=== PATIENT | female | born 1975 | race Caucasian/White ===

== ENCOUNTER 2018-08-09 10:40 | Inpatient (IN) | payer MEDICAID ==
[~2018-08-09] VITALS: Ht 149.9 cm; Wt 75.1 kg
[2018-08-09] MEDS ORDERED: KETOROLAC 30 MG INJ IV STA (11:44)
[2018-08-09] MEDS ORDERED: ONDANSETRON 4 MG INJ IV STA (11:44)
--- NOTE | 2018-08-09 15:06 | EN ---
Date/Time of Note Date/Time of Note DATE: 08/09/18 TIME: 15:05 ER Progress Note Patient seen with Dr. Santos Arrangements made for admission. 42-year-old female presents with right upper quadrant abdominal pain with elevated liver function tests and a nonspecific ultrasound. Given patient's ongoing discomfort and my concerns over possible obstruction, she will be admitted for MRCP and further diagnostic testing. She does not appear to be septic and her white count is normal and thus antibiotic's have been withheld at this time. SEVERO NICHOLAS August 09, 2018 15:06
--- NOTE | 2018-08-09 15:15 | ERD ---
ER Documentation Chief Complaint Chief Complaint BILATERAL UPPER ABD PAIN X2 DAYS W/ NAUSEA AND DIARRHEA HPI 42-year-old female was presents with worsening right upper quadrant abdominal pain for last 2 days with nausea and vomit nonbilious nonbloody. She has loose bowel movements without blood or mucus patient has fevers, chest pain, shortness of breath patient has lower abdominal pain, urinary complaints. Denies . She has a history of but denies prior hepatobiliary disease or surgery. Pain described as 9 out of 10 possibly postprandial without relieving factors. Pain is sharp. ROS All systems reviewed and are negative except as per history of present illness. Allergies Allergies: Coded Allergies: No Known Allergy (Unverified , 08/09/18) PMhx/Soc Medical and Surgical Hx: pt denies Medical Hx History of Surgery: Yes (C SECTION) Anesthesia Reaction: No Hx Alcohol Use: No Hx Substance Use: No Hx Tobacco Use: No Smoking Status: Never smoker FmHx Family History: No diabetes, No coronary disease, No other Physical Exam Vitals Vital Signs Date Temp Pulse Resp B/P (MAP) Pulse Ox O2 O2 Flow FiO2 Time Delivery Rate 08/09/18 98.1 89 16 120/68 99 10:47 (85) Physical Exam Const: No acute distress Head: Atraumatic Eyes: Normal Conjunctiva ENT: Normal External Ears, Nose and Mouth. Neck: Full range of motion. No meningismus. Resp: Clear to auscultation bilaterally Cardio: Regular rate and rhythm, no murmurs Abd: Soft, in the right upper quadrant. No rebound. No tenderness McBurney's point. Non distended. Normal bowel sounds Skin: No petechiae or rashes Back: No midline or flank tenderness Ext: No cyanosis, or edema Neur: Awake and alert Psych: Normal Mood and Affect Result Diagram: 08/09/18 1242 08/09/18 1242 Results 24 hrs Laboratory Tests Test 08/09/18 12:08 08/09/18 12:42 POC Beta HCG, Qualitative NEGATIVE White Blood Count 6.6 10^3/ul Red Blood Count 4.78 10^6/ul Hemoglobin 13.2 g/dl Hematocrit 40.6 % Mean Corpuscular Volume 84.9 fl Mean Corpuscular Hemoglobin 27.6 pg Mean Corpuscular Hemoglobin Concent 32.5 g/dl Red Cell Distribution Width 13.5 % Platelet Count 332 10^3/UL Mean Platelet Volume 10.3 fl Immature Granulocytes % 0.500 % Neutrophils % 68.6 % Lymphocytes % 23.2 % Monocytes % 6.1 % Eosinophils % 1.1 % Basophils % 0.5 % Nucleated Red Blood Cells % 0.0 /100WBC Immature Granulocytes # 0.030 10^3/ul Neutrophils # 4.5 10^3/ul Lymphocytes # 1.5 10^3/ul Monocytes # 0.4 10^3/ul Eosinophils # 0.1 10^3/ul Basophils # 0.0 10^3/ul Nucleated Red Blood Cells # 0.0 10^3/ul Urine Color KINGSLEY Urine Clarity CLOUDY Urine pH 7.0 Urine Specific [place] 1.020 Urine Ketones NEGATIVE mg/dL Urine Nitrite NEGATIVE mg/dL Urine Bilirubin 1+ mg/dL Urine Urobilinogen 2+ mg/dL Urine Leukocyte Esterase NEGATIVE Bob/ul Urine Microscopic RBC 0 /HPF Urine Microscopic WBC 2 /HPF Urine Squamous Epithelial Cells MODERATE /HPF Urine Bacteria FEW /HPF Urine Mucus FEW /HPF Urine Hemoglobin NEGATIVE mg/dL Urine Glucose NEGATIVE mg/dL Urine Total Protein NEGATIVE mg/dl Sodium Level 141 mmol/L Potassium Level 4.5 mmol/L Chloride Level 105 mmol/L Carbon Dioxide Level 29 mmol/L Anion Gap 7 Blood Urea Nitrogen 7 mg/dl Creatinine 0.68 mg/dl Est Glomerular Filtrat Rate mL/min > 60 mL/min Glucose Level 110 mg/dl Calcium Level 9.8 mg/dl Total Bilirubin 0.8 mg/dl Direct Bilirubin 0.10 mg/dl Indirect Bilirubin 0.7 mg/dl Aspartate Amino Transf (AST/SGOT) 1334 IU/L Alanine Aminotransferase (ALT/SGPT) 1035 IU/L Alkaline Phosphatase 157 IU/L Total Protein 7.3 g/dl Albumin 4.3 g/dl Globulin 3.00 g/dl Albumin/Globulin Ratio 1.43 Lipase 232 U/L Current Medications Medications Dose Sig/Horace Start Time Status Last (Trade) Ordered Route PRN Stop Time Admin Dose Reason Admin Ondansetron 4 mg ONCE STAT 08/09/18 DC 08/09/18 HCl (Zofran IV 11:44 12:48 Inj) 08/09/18 11:45 Ketorolac 30 mg ONCE STAT 08/09/18 DC 08/09/18 Tromethamine IV 11:44 12:48 (Toradol) 08/09/18 11:45 Procedures/MDM CBC normal. There is significant transaminitis over thousand with elevated alk phos. Lipase is normal and there is no evidence of elevated bilirubin. Urine shows no significant signs of infection or additional abnormalities. There is bilirubin in the urine. Patient was given Toradol 30 mg IV for pain and Zofran 4 mg IV for nausea. PROCEDURE: US Abdomen (right upper quadrant). CLINICAL INDICATION: Abdominal pain. TECHNIQUE: Multiple real-time longitudinal and transverse images of the right upper quadrant of the abdomen were acquired utilizing a curved array transducer. Images were reviewed on a high-resolution PACS workstation. COMPARISON: None FINDINGS: The liver is normal in size and demonstrates increased echogenicity. There is a 1.4 cm hypoechoic focus within the right hepatic lobe. The gallbladder is not well visualized. There are shadowing echogenic foci within the gallbladder fossa. No intrahepatic biliary dilatation is seen. The common bile duct measures 10 mm in maximal dimension. The portal and hepatic veins are patent de monstrating normal directional flow. The visualized portions of the pancreas are unremarkable with obscuration of the tail of the pancreas. No free fluid is identified. The right kidney measures 11.2 cm in length. The renal parenchyma demonstrates normal echogenicity. There is no perinephric fluid collection. No hydronephrosis, mass, or calculus is seen. IMPRESSION: 1. The gallbladder is not visualized. There are shadowing echogenic foci within the gallbladder fossa. Findings may reflect a contracted gallbladder with stones or surgical clips from prior cholecystectomy. Correlation with past surgical history is required. 2. The common bile duct is dilated measuring 10 mm in diameter. Correlation with LFTs is recommended. 3. 1.4 cm hypoechoic lesion within the right hepatic lobe. CT or MRI three- phase liver protocol is recommended for further characterization. 4. Hepatic steatosis. RPTAT: HH .Maggie Adrian MD, Date Time Electronically viewed and signed by .Maggie Adrian MD, MD on 08/09/2018 13:27 Presents with worsening right upper quadrant abdominal pain and nausea for the last week. She has signs concerning for bili obstruction with significant transaminitis. She has a 1.4 cm hypoechoic lesion in the right hepatic lobe as well. She has no episodes findings to suggest cholecystitis, appendicitis. She curiously has no identified gallbladder despite no cholecystectomy. She will require further evaluation and studies whether it be MRCP or three-phase contrast CT studies as recommended and we will defer more definitive testing to inpatient team. Patient had persistent right upper quadrant abdominal pain after Toradol although improved. Antibiotics deferred for now given no evidence of sepsis or significant cholecystitis. Departure Diagnosis: Primary Impression: Abdominal pain Abdominal location: right upper quadrant Qualified Codes: R10.11 - Right upper quadrant pain Condition: GLORIA Prince MD August 09, 2018 15:15
[2018-08-09] MEDS ORDERED: ACETAMINOPHEN 325 MG TAB PO PRN ×2 (15:30→16:00)
[2018-08-09] MEDS ORDERED: ONDANSETRON 4 MG INJ IV PRN (15:30)
[2018-08-09] MEDS ORDERED: morphine 2 MG INJ IV PRN (16:00)
[2018-08-09] MEDS ORDERED: NACL 0.9% 3 ML SYG IV SCH (16:00)
--- NOTE | 2018-08-09 16:04 | HP ---
Date/Time of Note Date/Time of Note DATE: 08/09/18 TIME: 15:54 Assessment/Plan VTE Prophylaxis SCD applied (from Nsg): Yes Pharmacological prophylaxis: NA/contraindicated Pharm contraindication: low risk/ambulating Lines/Catheters IV Catheter Type (from Nrsg): Saline Lock Assessment/Plan Assessment/Plan 1. Acute right upper quadrant pain, possibly choledocholithiasis - US showing contracted GB but per ED physician, tech was concerned about porcelain GB - Will order MRCP to further evaluate - GI consultation placed for possible ERCP - General surgery consultation placed for evaluation for possible cholecystectomy - patient remains afebrile with nl WBC. Will hold off on starting antibiotics 2. Transaminitis - most likely secondary to #1 - will continue to trend 3. Diet - NPO for now and continue IVF 4. DVT ppx - SCD 5. GI ppx - PPI 6. Disposition - Admit to med/surg for evaluation of RUQ pain and possible GI/Surgical intervention based on results of MRCP Result Diagram: 08/09/18 1242 08/09/18 1242 Results 24hrs Laboratory Tests Test 08/09/18 12:08 08/09/18 12:42 POC Beta HCG, Qualitative NEGATIVE White Blood Count 6.6 Red Blood Count 4.78 Hemoglobin 13.2 Hematocrit 40.6 Mean Corpuscular Volume 84.9 Mean Corpuscular Hemoglobin 27.6 L Mean Corpuscular Hemoglobin Concent 32.5 Red Cell Distribution Width 13.5 Platelet Count 332 Mean Platelet Volume 10.3 Immature Granulocytes % 0.500 H Neutrophils % 68.6 Lymphocytes % 23.2 Monocytes % 6.1 Eosinophils % 1.1 Basophils % 0.5 Nucleated Red Blood Cells % 0.0 Immature Granulocytes # 0.030 Neutrophils # 4.5 Lymphocytes # 1.5 Monocytes # 0.4 Eosinophils # 0.1 Basophils # 0.0 Nucleated Red Blood Cells # 0.0 Urine Color KINGSLEY Urine Clarity CLOUDY A Urine pH 7.0 Urine Specific [place] 1.020 Urine Ketones NEGATIVE Urine Nitrite NEGATIVE Urine Bilirubin 1+ H Urine Urobilinogen 2+ H Urine Leukocyte Esterase NEGATIVE Urine Microscopic RBC 0 Urine Microscopic WBC 2 Urine Squamous Epithelial Cells MODERATE Urine Bacteria FEW A Urine Mucus FEW A Urine Hemoglobin NEGATIVE Urine Glucose NEGATIVE Urine Total Protein NEGATIVE Sodium Level 141 Potassium Level 4.5 Chloride Level 105 Carbon Dioxide Level 29 Anion Gap 7 Blood Urea Nitrogen 7 Creatinine 0.68 Est Glomerular Filtrat Rate mL/min > 60 Glucose Level 110 Calcium Level 9.8 Total Bilirubin 0.8 Direct Bilirubin 0.10 Indirect Bilirubin 0.7 Aspartate Amino Transf (AST/SGOT) 1334 H Alanine Aminotransferase (ALT/SGPT) 1035 H Alkaline Phosphatase 157 H Total Protein 7.3 Albumin 4.3 Globulin 3.00 Albumin/Globulin Ratio 1.43 Lipase 232 HPI/ROS Admit Date/Time Admit Date/Time 08/09/18 Hx of Present Illness 42 yo F with no significant PMH presented to ED with worsening right upper quadrant pain for the past 3 days. Patient states the pain radiates in a band like pattern in upper quadrants, moderate in nature, nothing makes it better and worse with food. Patient states the pain is constant and every time she eats she vomits. Denies any fevers, chills, headache, dizziness, chest pain, shortness of breath, or urinary symptoms. She does admit to suprapubic discomfort when she bends down and straights but denies any dysuria or flank pain. Patient denies any previous surgeries. No smoking or alcohol use. ROS All 12 systems reviewed and pertinent positives as per HPI. All others negative. Constitutional: nausea; No chills, No fatigue Eyes: No discharge ENT: No congestion Respiratory: No cough, No shortness of breath, No sputum, No wheezing Cardiovascular: No chest pain, No edema, No lightheadedness, No palpitations Gastrointestinal: pain, nausea, vomiting; No constipation, No diarrhea Genitourinary: No dysuria, No flank pain Musculoskeletal: other (suprapubic discomfort) Skin: No laceration, No rash Neurologic: No confusion, No focal-weakness, No syncope Endocrine: no complaints Lymphatic: no complaints Psychological: nl mood/affect Immunologic: no complaints PMH/Family/Social Past Medical History Medical History: no pertinent history Medications Current Medications Ondansetron HCl (Zofran Inj) 4 mg BRIDGE ORDER PRN IV NAUSEA/VOMITING; Start 08/09/18 at 15:30; Stop 08/10/18 at 15:29 Acetaminophen (Tylenol Tab) 650 mg ER BRIDGE PRN PO .MILD PAIN 1-3 OR TEMP; Start 08/09/18 at 15:30; Stop 08/10/18 at 15:29 Coded Allergies: No Known Allergy (Unverified , 08/09/18) Past Surgical History Past Surgical Hx: no surgical history Family History Significant Family History: no pertinent family hx Social History Alcohol Use: none Smoking Status: Never smoker Drug Use: none Exam/Review of Systems Vital Signs Vitals Vital Signs Date Temp Pulse Resp B/P (MAP) Pulse Ox O2 O2 Flow FiO2 Time Delivery Rate 08/09/18 98.1 89 16 120/68 99 10:47 (85) Exam Exam General: Patient is laying in bed and answers questions appropriately. no acute distress Mentation: Patient is alert and oriented 4, Head: Normocephalic atraumatic Eyes: EOMI, pupils reactive to light Neck: Supple, nontender, midline Respiratory: Clear to auscultation bilaterally. no wheezing or rhonchi Cardiovascular: S1, S2, regular rate and rhythm, no obvious murmurs Gastrointestinal: soft, tenderness to palpation RUQ and suprapubic area, +Meredith sign, nondistended, bowel sounds heard. no rebound or guarding Ext: Moves all extremities spontaneously. no edema, cyanosis or clubbing Skin: no rashes or lesions appreciated Additional Comments No home medications PROCEDURE: US Abdomen (right upper quadrant). CLINICAL INDICATION: Abdominal pain. TECHNIQUE: Multiple real-time longitudinal and transverse images of the right upper quadrant of the abdomen were acquired utilizing a curved array transducer. Images were reviewed on a high-resolution PACS workstation. COMPARISON: None FINDINGS: The liver is normal in size and demonstrates increased echogenicity. There is a 1.4 cm hypoechoic focus within the right hepatic lobe. The gallbladder is not well visualized. There are shadowing echogenic foci within the gallbladder fossa. No intrahepatic biliary dilatation is seen. The common bile duct measures 10 mm in maximal dimension. The portal and hepatic veins are patent demonstrating normal directional flow. The visualized portions of the pancreas are unremarkable with obscuration of the tail of the pancreas. No free fluid is identified. The right kidney measures 11.2 cm in length. The renal parenchyma demonstrates normal echogenicity. There is no perinephric fluid collection. No hydronephrosis, mass, or calculus is seen. IMPRESSION: 1. The gallbladder is not visualized. There are shadowing echogenic foci within the gallbladder fossa. Findings may reflect a contracted gallbladder with stones or surgical clips from prior cholecystectomy. Correlation with past surgical history is required. 2. The common bile duct is dilated measuring 10 mm in diameter. Correlation with LFTs is recommended. 3. 1.4 cm hypoechoic lesion within the right hepatic lobe. CT or MRI three- phase liver protocol is recommended for further characterization. 4. Hepatic steatosis. RPTAT: HH .Maggie Adrian MD, MD Date Time Electronically viewed and signed by .Maggie Adrian MD, MD on 08/09/2018 13:27 AMANDA MILAN MD August 09, 2018 16:03
--- NOTE | 2018-08-09 16:28 | CONS ---
Assessment/Plan Assessment/Plan Hospital Course (Demo Recall) Summary Assessment and Plan: Assessment: Upper abdominal pain with associated nausea/vomiting Profoundly elevated LFTs (normal bilirubin) Hepatic steatosis 1.4 cm hypoechoic lesion within the right hepatic lobe Plan: MRCP- pending- if positive for CBD obstruction will proceed with ERCP Hepatitis panel, with auto-immune work-up Clear liquid diet Trend LFTs Will check INR and AFP Ct with liver protocol to assess 1.4 cm lesion per radiology recommendations Patient seen in collaboration with Dr. Gómez CC: KASIA GÓMEZ MD ; Consultation Date/Type/Reason Admit Date/Time 08/09/18 Date of Consultation: August 09, 2018 Type of Consult GI Reason for Consultation Elevated LFTs/ Upper abd pain Date/Time of Note DATE: 08/09/18 TIME: 16:16 Hx of Present Illness This a 42-year-old female with no significant past medical history who presented to the hospital with complaints of upper abdominal pain worse to right upper quadrant with work-up in the ED patient found to have profound elevated LFTs and a normal bilirubin. She had a gallbladder ultrasound which revealed hepatic steatosis and a dilated common bile duct measuring 10 mm in diameter. The gallbladder was not visualized however there are shadowing echogenic foci within the bladder fossa which may reflect contracted gallbladder with stones or surgical clips from prior cholecystectomy. Patient denies previous cholecystectomy states only surgery was and she also denies alcohol use, drug use, or history of smoking. MRCP has been ordered we will additiona lly order further work-up regarding profound elevation in LFTs. If MRCP is positive we will move forward with ERCP. Review of Systems: A 12 system, review was conducted and is negative except as noted in the HPI or here. Past Medical History Medical History: no pertinent history Medications Current Medications Ondansetron HCl (Zofran Inj) 4 mg BRIDGE ORDER PRN IV NAUSEA/VOMITING; Start 08/09/18 at 15:30; Stop 08/10/18 at 15:29 Acetaminophen (Tylenol Tab) 650 mg ER BRIDGE PRN PO .MILD PAIN 1-3 OR TEMP; Start 08/09/18 at 15:30; Stop 08/10/18 at 15:29 Dextrose/Sodium Chloride 1,000 ml @ 75 mls/hr [id number] IV ; Start 08/09/18 at 15:48 IV Flush (NS 3 ml) 3 ml PER PROTOCOL IV ; Start 08/09/18 at 16:00 Ondansetron HCl (Zofran Inj) 4 mg Q6H PRN IV NAUSEA/VOMITING; Start 08/09/18 at 16:00 Acetaminophen (Tylenol Tab) 650 mg Q6H PRN PO .PAIN 1-3 OR TEMP; Start 08/09/18 at 16:00 Morphine Sulfate (morphine) 2 mg Q4H PRN IV .SEVERE PAIN 7-10; Start 08/09/18 at 16:00 Hydromorphone HCl (Dilaudid) 0.5 mg Q4H PRN IV .SEVERE PAIN 7-10; Start 08/09/18 at 16:00 Famotidine (Pepcid Iv) 20 mg Q12 IV ; Start 08/09/18 at 21:00 Ketorolac Tromethamine (Toradol) 15 mg Q6H PRN IV PAIN LEVEL 4-6; Start 08/09/18 at 16:30; Stop 08/12/18 at 16:29 Allergies: Coded Allergies: No Known Allergy (Unverified , 08/09/18) Past Surgical History Past Surgical Hx: no surgical history Social History Alcohol Use: none Smoking Status: Never smoker Drug Use: none Exam/Review of Systems Exam Vitals Vital Signs Date Temp Pulse Resp B/P (MAP) Pulse Ox O2 O2 Flow FiO2 Time Delivery Rate 08/09/18 98.1 89 16 120/68 99 10:47 (85) Exam PHYSICAL EXAMINATION: GENERAL: Well developed, well nourished, alert & oriented x 3, in no acute distress SKIN: No lesions HEAD: Normocephalic, atraumatic, no tenderness. EYES: Pupils equal reactive to light, no discharge. EARS/NOSE AND THROAT: Ears normal, nose normal. NECK: Supple, no masses. CHEST: Inspection within normal limits. CARDIOVASCULAR: Heart: Regular rate and rhythm RESPIRATORY: Lungs clear to auscultation GASTROINTESTINAL AND LIVER: Abdomen: Soft, Upper abdominal pain, worse to RUQ, non-distended, no hernias, no masses, no organomegaly, no rebound tenderness, normoactive bowel sounds. Rectal: Deferred. EXTREMITIES: No cyanosis, clubbing or edema. Results Result Diagram: 08/09/18 1242 08/09/18 1242 Results 24hrs Laboratory Tests Test 08/09/18 12:08 08/09/18 12:42 POC Beta HCG, Qualitative NEGATIVE White Blood Count 6.6 Red Blood Count 4.78 Hemoglobin 13.2 Hematocrit 40.6 Mean Corpuscular Volume 84.9 Mean Corpuscular Hemoglobin 27.6 L Mean Corpuscular Hemoglobin Concent 32.5 Red Cell Distribution Width 13.5 Platelet Count 332 Mean Platelet Volume 10.3 Immature Granulocytes % 0.500 H Neutrophils % 68.6 Lymphocytes % 23.2 Monocytes % 6.1 Eosinophils % 1.1 Basophils % 0.5 Nucleated Red Blood Cells % 0.0 Immature Granulocytes # 0.030 Neutrophils # 4.5 Lymphocytes # 1.5 Monocytes # 0.4 Eosinophils # 0.1 Basophils # 0.0 Nucleated Red Blood Cells # 0.0 Prothrombin Time 12.2 Prothrombin Time Ratio 1.0 INR International Normalized Ratio 0.89 Activated Partial Thromboplast Time 24.9 Urine Color KINGSLEY Urine Clarity CLOUDY A Urine pH 7.0 Urine Specific [place] 1.020 Urine Ketones NEGATIVE Urine Nitrite NEGATIVE Urine Bilirubin 1+ H Urine Urobilinogen 2+ H Urine Leukocyte Esterase NEGATIVE Urine Microscopic RBC 0 Urine Microscopic WBC 2 Urine Squamous Epithelial Cells MODERATE Urine Bacteria FEW A Urine Mucus FEW A Urine Hemoglobin NEGATIVE Urine Glucose NEGATIVE Urine Total Protein NEGATIVE Sodium Level 141 Potassium Level 4.5 Chloride Level 105 Carbon Dioxide Level 29 Anion Gap 7 Blood Urea Nitrogen 7 Creatinine 0.68 Est Glomerular Filtrat Rate mL/min > 60 Glucose Level 110 Calcium Level 9.8 Total Bilirubin 0.8 Direct Bilirubin 0.10 Indirect Bilirubin 0.7 Aspartate Amino Transf (AST/SGOT) 1334 H Alanine Aminotransferase (ALT/SGPT) 1035 H Alkaline Phosphatase 157 H Total Protein 7.3 Albumin 4.3 Globulin 3.00 Albumin/Globulin Ratio 1.43 Lipase 232 Medications Medication Current Medications Ondansetron HCl (Zofran Inj) 4 mg BRIDGE ORDER PRN IV NAUSEA/VOMITING; Start 08/09/18 at 15:30; Stop 08/10/18 at 15:29 Acetaminophen (Tylenol Tab) 650 mg ER BRIDGE PRN PO .MILD PAIN 1-3 OR TEMP; Start 08/09/18 at 15:30; Stop 08/10/18 at 15:29 Dextrose/Sodium Chloride 1,000 ml @ 75 mls/hr [id number] IV ; Start 08/09/18 at 15:48 IV Flush (NS 3 ml) 3 ml PER PROTOCOL IV ; Start 08/09/18 at 16:00 Ondansetron HCl (Zofran Inj) 4 mg Q6H PRN IV NAUSEA/VOMITING; Start 08/09/18 at 16:00 Acetaminophen (Tylenol Tab) 650 mg Q6H PRN PO .PAIN 1-3 OR TEMP; Start 08/09/18 at 16:00 Morphine Sulfate (morphine) 2 mg Q4H PRN IV .SEVERE PAIN 7-10; Start 08/09/18 at 16:00 Hydromorphone HCl (Dilaudid) 0.5 mg Q4H PRN IV .SEVERE PAIN 7-10; Start 08/09/18 at 16:00 Famotidine (Pepcid Iv) 20 mg Q12 IV ; Start 08/09/18 at 21:00 Ketorolac Tromethamine (Toradol) 15 mg Q6H PRN IV PAIN LEVEL 4-6; Start 08/09/18 at 16:30; Stop 08/12/18 at 16:29 BILL APONTE August 09, 2018 16:27
[2018-08-09] MEDS ORDERED: SOD CHLORIDE 0.9% 100 ML ONE (16:55)
[2018-08-09] MEDS ORDERED: IOHEXOL 300MG/ML 150 ML BTL ONE (16:55)
[2018-08-09 17:30] VITALS: BP 118/74; PULSE 72; RESP 16
[2018-08-09 19:53] VITALS: BP 123/72; PULSE 69; RESP 18
[2018-08-09 21:00] VITALS: Ht 149.9 cm; Wt 75.1 kg
[2018-08-09] MEDS: FAMOTIDINE 20 MG INJ IV SCH (21:13)
[2018-08-09] MEDS: HYDROmorphONE 0.5 MG/0.5 ML SYG IV PRN (21:13)
[2018-08-09] MEDS: DEXTROSE 5%-0.45% NACL 1,000 ML IV SCH (21:15)
--- NOTE | 2018-08-09 21:35 | CONS ---
Assessment/Plan Assessment/Plan Hospital Course (Demo Recall) 1. Abdominal pain 2. Transaminitis 3. Dilated common bile duct with possible choledocholithiasis 4. Contracted gallbladder, ? porcelain (per ER note however not documented in the ultrasound) 5. Questionable liver lesion 6. Steatosis -GI consult for ERCP -Eventual cholecystectomy -Pain control -Encourage weight optimization -Further imaging to evaluate the liver, defer to GI 7. BMI 33 -Nutrition and exercise optimization Thank you very much for consulting me in this patient's care, Consultation Date/Type/Reason Admit Date/Time 08/09/18 Date of Consultation: August 09, 2018 Type of Consult General surgical Reason for Consultation Abdominal pain Transaminitis Possible choledocholithiasis Requesting Provider: AMANDA MILAN MD Date/Time of Note DATE: 08/09/18 TIME: 21:35 Hx of Present Illness Neida Cagle is a 42 yo F who presented to ED with worsening right upper quadrant pain for the past 3 days. Patient states the pain radiates in a band like pattern in upper quadrants, moderate in nature, nothing makes it better and worse with food. Patient states the pain is constant and every time she eats she vomits. Denies any fevers, chills, headache, dizziness, chest pain, shortness of breath, or urinary symptoms. She does admit to suprapubic discomfort when she bends down and straights but denies any dysuria or flank pain. No trauma or sick contacts. No change in bowel habits. No color change of skin eyes urine or stool. Work-up identified transaminitis normal vitals. Ultrasound identifies dilated common bile duct. Gallbladder is not visualized however she is never had surgery. 12 point review of system is negative unless otherwise addressed in chart Past Medical History BMI 33 Abdominal pain Transaminitis Dilated common bile duct Liver lesion Steatosis Medications Current Medications Ondansetron HCl (Zofran Inj) 4 mg BRIDGE ORDER PRN IV NAUSEA/VOMITING; Start 08/09/18 at 15:30; Stop 08/10/18 at 15:29 Acetaminophen (Tylenol Tab) 650 mg ER BRIDGE PRN PO .MILD PAIN 1-3 OR TEMP; Start 08/09/18 at 15:30; Stop 08/10/18 at 15:29 Dextrose/Sodium Chloride 1,000 ml @ 75 mls/hr [id number] IV Last administered on 08/09/18at 21:15; Admin Dose 75 MLS/HR; Start 08/09/18 at 15:48 IV Flush (NS 3 ml) 3 ml PER PROTOCOL IV ; Start 08/09/18 at 16:00 Ondansetron HCl (Zofran Inj) 4 mg Q6H PRN IV NAUSEA/VOMITING; Start 08/09/18 at 16:00 Acetaminophen (Tylenol Tab) 650 mg Q6H PRN PO .PAIN 1-3 OR TEMP; Start 08/09/18 at 16:00 Morphine Sulfate (morphine) 2 mg Q4H PRN IV .SEVERE PAIN 7-10; Start 08/09/18 at 16:00 Hydromorphone HCl (Dilaudid) 0.5 mg Q4H PRN IV .SEVERE PAIN 7-10 Last administered on 08/09/18at 21:13; Admin Dose 0.5 MG; Start 08/09/18 at 16:00 Famotidine (Pepcid Iv) 20 mg Q12 IV Last administered on 08/09/18at 21:13; Admin Dose 20 MG; Start 08/09/18 at 21:00 Ketorolac Tromethamine (Toradol) 15 mg Q6H PRN IV PAIN LEVEL 4-6; Start 08/09/18 at 16:30; Stop 08/12/18 at 16:29 Allergies: Coded Allergies: No Known Allergy (Unverified , 08/09/18) Past Surgical History Past Surgical Hx: other () Family History Significant Family History: no pertinent family hx Social History Alcohol Use: none Smoking Status: Never smoker Drug Use: none Exam/Review of Systems Exam Vitals Vital Signs Date Temp Pulse Resp B/P (MAP) Pulse Ox O2 O2 Flow FiO2 Time Delivery Rate 08/09/18 98.0 69 18 123/72 99 19:53 (89) 08/09/18 Room Air 17:30 Constitutional: alert, oriented, obese; No distress Psych: nl mood/affect; No anxiety Head: normocephalic, atraumatic Eyes: nl conjunctiva, EOMI, PERRL; No icteric ENMT: nl external ears & nose, mucosa pink and moist Neck: supple, non-tender; No jvd Respiratory: normal air movement; No congested cough, No labored breathing Cardiovascular: regular rate and rhythm; No edema Gastrointestinal: soft, tender (Minimal epigastric. Negative Meredith's); No distended, No rebound or guarding Musculoskeletal: nl extremities to inspection, nl gait and stance; No joint tenderness Extremities: normal pulses; No calf tenderness, No edema Neurological: nl mental status, nl speech, nl strength Skin: nl turgor; No rash or lesions, No diaphoresis Lymph: nl lymph nodes Results Result Diagram: 08/09/18 1242 08/09/18 1242 Results 24hrs Laboratory Tests Test 08/09/18 12:08 08/09/18 12:42 08/09/18 18:02 POC Beta HCG, Qualitative NEGATIVE White Blood Count 6.6 Red Blood Count 4.78 Hemoglobin 13.2 Hematocrit 40.6 Mean Corpuscular Volume 84.9 Mean Corpuscular Hemoglobin 27.6 L Mean Corpuscular Hemoglobin Concent 32.5 Red Cell Distribution Width 13.5 Platelet Count 332 Mean Platelet Volume 10.3 Immature Granulocytes % 0.500 H Neutrophils % 68.6 Lymphocytes % 23.2 Monocytes % 6.1 Eosinophils % 1.1 Basophils % 0.5 Nucleated Red Blood Cells % 0.0 Immature Granulocytes # 0.030 Neutrophils # 4.5 Lymphocytes # 1.5 Monocytes # 0.4 Eosinophils # 0.1 Basophils # 0.0 Nucleated Red Blood Cells # 0.0 Prothrombin Time 12.2 12.0 Prothrombin Time Ratio 1.0 0.9 INR International Normalized Ratio 0.89 0.88 Activated Partial Thromboplast Time 24.9 Urine Color [place] Urine Clarity CLOUDY A Urine pH 7.0 Urine Specific [place] 1.020 Urine Ketones NEGATIVE Urine Nitrite NEGATIVE Urine Bilirubin 1+ H Urine Urobilinogen 2+ H Urine Leukocyte Esterase NEGATIVE Urine Microscopic RBC 0 Urine Microscopic WBC 2 Urine Squamous Epithelial Cells MODERATE Urine Bacteria FEW A Urine Mucus FEW A Urine Hemoglobin NEGATIVE Urine Glucose NEGATIVE Urine Total Protein NEGATIVE Sodium Level 141 Potassium Level 4.5 Chloride Level 105 Carbon Dioxide Level 29 Anion Gap 7 Blood Urea Nitrogen 7 Creatinine 0.68 Est Glomerular Filtrat Rate mL/min > 60 Glucose Level 110 Calcium Level 9.8 Total Bilirubin 0.8 Direct Bilirubin 0.10 Indirect Bilirubin 0.7 Aspartate Amino Transf (AST/SGOT) 1334 H Alanine Aminotransferase (ALT/SGPT) 1035 H Alkaline Phosphatase 157 H Total Protein 7.3 Albumin 4.3 Globulin 3.00 Albumin/Globulin Ratio 1.43 Lipase 232 Alpha Fetoprotein 4.34 Hepatitis B Surface Antigen NEGATIVE Hepatitis B Core Total Antibody NEGATIVE Hepatitis C Antibody NEGATIVE Imaging Imaging Ultrasound: 1. The gallbladder is not visualized. There are shadowing echogenic foci within the gallbladder fossa. Findings may reflect a contracted gallbladder with stones or surgical clips from prior cholecystectomy. Correlation with past surgical history is required. 2. The common bile duct is dilated measuring 10 mm in diameter. Correlation with LFTs is recommended. 3. 1.4 cm hypoechoic lesion within the right hepatic lobe. CT or MRI three- phase liver protocol is recommended for further characterization. 4. Hepatic steatosis. Medications Medication Current Medications Ondansetron HCl (Zofran Inj) 4 mg BRIDGE ORDER PRN IV NAUSEA/VOMITING; Start 08/09/18 at 15:30; Stop 08/10/18 at 15:29 Acetaminophen (Tylenol Tab) 650 mg ER BRIDGE PRN PO .MILD PAIN 1-3 OR TEMP; Start 08/09/18 at 15:30; Stop 08/10/18 at 15:29 Dextrose/Sodium Chloride 1,000 ml @ 75 mls/hr [id number] IV Last administered on 08/09/18at 21:15; Admin Dose 75 MLS/HR; Start 08/09/18 at 15:48 IV Flush (NS 3 ml) 3 ml PER PROTOCOL IV ; Start 08/09/18 at 16:00 Ondansetron HCl (Zofran Inj) 4 mg Q6H PRN IV NAUSEA/VOMITING; Start 08/09/18 at 16:00 Acetaminophen (Tylenol Tab) 650 mg Q6H PRN PO .PAIN 1-3 OR TEMP; Start 08/09/18 at 16:00 Morphine Sulfate (morphine) 2 mg Q4H PRN IV .SEVERE PAIN 7-10; Start 08/09/18 at 16:00 Hydromorphone HCl (Dilaudid) 0.5 mg Q4H PRN IV .SEVERE PAIN 7-10 Last administered on 08/09/18at 21:13; Admin Dose 0.5 MG; Start 08/09/18 at 16:00 Famotidine (Pepcid Iv) 20 mg Q12 IV Last administered on 08/09/18at 21:13; Admin Dose 20 MG; Start 08/09/18 at 21:00 Ketorolac Tromethamine (Toradol) 15 mg Q6H PRN IV PAIN LEVEL 4-6; Start 08/09/18 at 16:30; Stop 08/12/18 at 16:29 BRICE VALENZUELA MD August 09, 2018 21:35
[2018-08-10 02:00] VITALS: BP 96/62; PULSE 79; RESP 19
[2018-08-10 08:00] VITALS: BP 94/55; PULSE 68; RESP 18
[2018-08-10] MEDS: FAMOTIDINE 20 MG INJ IV SCH ×2 (08:12→20:13)
[2018-08-10] MEDS: HYDROmorphONE 0.5 MG/0.5 ML SYG IV PRN (08:12)
[2018-08-10] MEDS: DEXTROSE 5%-0.45% NACL 1,000 ML IV SCH ×2 (09:49→22:52)
--- NOTE | 2018-08-10 09:54 | PN ---
Date/Time of Note Date/Time of Note DATE: 08/10/18 TIME: 09:49 Assessment/Plan VTE Prophylaxis Risk score (from [facility])>0 risk: 3 SCD applied (from [facility]): Yes Pharmacological prophylaxis: NA/contraindicated Pharm contraindication: low risk/ambulating Lines/Catheters [facility]from [facility] Peripheral IV Urinary Cath still in place: No Assessment/Plan Assessment/Plan 1. Acute right upper quadrant pain, possibly choledocholithiasis - MRCP pending - CT results shows 9mm CBD, cholelithiasis - initial US showed contracted GB and ?porcelain GB but not documented - GI consultation appreciated and if MRCP + will proceed with ERCP - General surgery consultation appreciated. 2. Transaminitis - most likely secondary to #1 - trending downward but still elevated 3. Disposition - Further plan of care based on results of MRCP which is still pending Result Diagram: 08/10/18 0713 08/10/18 0713 Results 24hrs Laboratory Tests Test 08/09/18 12:08 08/09/18 12:42 08/09/18 18:02 08/10/18 07:13 POC Beta HCG, NEGATIVE Qualitative White Blood Count 6.6 7.2 Red Blood Count 4.78 4.44 Hemoglobin 13.2 12.4 Hematocrit 40.6 37.9 Mean Corpuscular 84.9 85.4 Volume Mean Corpuscular 27.6 L 27.9 L Hemoglobin Mean Corpuscular 32.5 32.7 Hemoglobin Concent Red Cell 13.5 13.7 Distribution Width Platelet Count 332 295 Mean Platelet Volume 10.3 10.4 Immature 0.500 H 0.400 Granulocytes % Neutrophils % 68.6 69.0 Lymphocytes % 23.2 21.6 Monocytes % 6.1 5.6 Eosinophils % 1.1 2.4 Basophils % 0.5 1.0 Nucleated Red Blood 0.0 0.0 Cells % Immature 0.030 0.030 Granulocytes # Neutrophils # 4.5 5.0 Lymphocytes # 1.5 1.6 Monocytes # 0.4 0.4 Eosinophils # 0.1 0.2 Basophils # 0.0 0.1 Nucleated Red Blood 0.0 0.0 Cells # Prothrombin Time 12.2 12.0 Prothrombin Time 1.0 0.9 Ratio INR International 0.89 0.88 Normalized Ratio Activated 24.9 Partial Thromboplast Time Urine Color [place] Urine Clarity CLOUDY A Urine pH 7.0 Urine Specific 1.020 [place] Urine Ketones NEGATIVE Urine Nitrite NEGATIVE Urine Bilirubin 1+ H Urine Urobilinogen 2+ H Urine Leukocyte NEGATIVE Esterase Urine Microscopic 0 RBC Urine Microscopic 2 WBC Urine Squamous MODERATE Epithelial Cells Urine Bacteria FEW A Urine Mucus FEW A Urine Hemoglobin NEGATIVE Urine Glucose NEGATIVE Urine Total Protein NEGATIVE Sodium Level 141 141 Potassium Level 4.5 3.9 Chloride Level 105 107 Carbon Dioxide Level 29 28 Anion Gap 7 6 Blood Urea Nitrogen 7 6 L Creatinine 0.68 0.80 Est Glomerular > 60 > 60 Filtrat Rate mL/min Glucose Level 110 119 Calcium Level 9.8 9.3 Total Bilirubin 0.8 1.5 H Direct Bilirubin 0.10 0.40 #H Indirect Bilirubin 0.7 1.1 Aspartate Amino 1334 H 840 H Transf (AST/SGOT) Alanine 1035 H 871 H Aminotransferase (AL T/SGPT) Alkaline Phosphatase 157 H 160 H Total Protein 7.3 6.8 Albumin 4.3 3.9 Globulin 3.00 2.90 Albumin/Globulin 1.43 1.34 Ratio Lipase 232 Alpha Fetoprotein 4.34 Hepatitis B Surface NEGATIVE Antigen Hepatitis B Core NEGATIVE Total Antibody Hepatitis C Antibody NEGATIVE Magnesium Level 2.3 Triglycerides Level 130 Cholesterol Level 146 LDL Cholesterol, 58 Calculated HDL Cholesterol 62 Cholesterol/HDL 2.3 Ratio Subjective 24 Hr Interval Summary Free Text/Dictation Patient still with bandlike pain across upper quadrant area. Discussed MRCP pending but if shows CBD dilatation will possible proceed with ERCP and cholecystectomy. and patient understand potential plan. No acute overnight events. Exam/Review of Systems Exam Vitals Vital Signs Date Temp Pulse Resp B/P (MAP) Pulse Ox O2 O2 Flow FiO2 Time Delivery Rate 08/10/18 98.6 68 18 94/55 (68) 96 08:00 08/09/18 Room Air 17:30 Intake and Output 08/09/18 08/09/18 08/10/18 1515:00 23:00 07:00 IntakeIntake Total 1040 ml BalanceBalance 1040 ml Exam General: Patient is laying in bed and answers questions appropriately. no acute distress Respiratory: Clear to auscultation bilaterally. no wheezing or rhonchi Cardiovascular: S1, S2, regular rate and rhythm, no obvious murmurs Gastrointestinal: soft, tenderness to palpation RUQ, +Meredith sign, nondistended, bowel sounds heard. no rebound or guarding Ext: Moves all extremities spontaneously. no edema, cyanosis or clubbing Skin: no rashes or lesions appreciated Results Results 24hrs Laboratory Tests Test 08/09/18 12:08 08/09/18 12:42 08/09/18 18:02 08/10/18 07:13 POC Beta HCG, NEGATIVE Qualitative White Blood Count 6.6 7.2 Red Blood Count 4.78 4.44 Hemoglobin 13.2 12.4 Hematocrit 40.6 37.9 Mean Corpuscular 84.9 85.4 Volume Mean Corpuscular 27.6 L 27.9 L Hemoglobin Mean Corpuscular 32.5 32.7 Hemoglobin Concent Red Cell 13.5 13.7 Distribution Width Platelet Count 332 295 Mean Platelet Volume 10.3 10.4 Immature 0.500 H 0.400 Granulocytes % Neutrophils % 68.6 69.0 Lymphocytes % 23.2 21.6 Monocytes % 6.1 5.6 Eosinophils % 1.1 2.4 Basophils % 0.5 1.0 Nucleated Red Blood 0.0 0.0 Cells % Immature 0.030 0.030 Granulocytes # Neutrophils # 4.5 5.0 Lymphocytes # 1.5 1.6 Monocytes # 0.4 0.4 Eosinophils # 0.1 0.2 Basophils # 0.0 0.1 Nucleated Red Blood 0.0 0.0 Cells # Prothrombin Time 12.2 12.0 Prothrombin Time 1.0 0.9 Ratio INR International 0.89 0.88 Normalized Ratio Activated 24.9 Partial Thromboplast Time Urine Color [place] Urine Clarity CLOUDY A Urine pH 7.0 Urine Specific 1.020 [place] Urine Ketones NEGATIVE Urine Nitrite NEGATIVE Urine Bilirubin 1+ H Urine Urobilinogen 2+ H Urine Leukocyte NEGATIVE Esterase Urine Microscopic 0 RBC Urine Microscopic 2 WBC Urine Squamous MODERATE Epithelial Cells Urine Bacteria FEW A Urine Mucus FEW A Urine Hemoglobin NEGATIVE Urine Glucose NEGATIVE Urine Total Protein NEGATIVE Sodium Level 141 141 Potassium Level 4.5 3.9 Chloride Level 105 107 Carbon Dioxide Level 29 28 Anion Gap 7 6 Blood Urea Nitrogen 7 6 L Creatinine 0.68 0.80 Est Glomerular > 60 > 60 Filtrat Rate mL/min Glucose Level 110 119 Calcium Level 9.8 9.3 Total Bilirubin 0.8 1.5 H Direct Bilirubin 0.10 0.40 #H Indirect Bilirubin 0.7 1.1 Aspartate Amino 1334 H 840 H Transf (AST/SGOT) Alanine 1035 H 871 H Aminotransferase (AL T/SGPT) Alkaline Phosphatase 157 H 160 H Total Protein 7.3 6.8 Albumin 4.3 3.9 Globulin 3.00 2.90 Albumin/Globulin 1.43 1.34 Ratio Lipase 232 Alpha Fetoprotein 4.34 Hepatitis B Surface NEGATIVE Antigen Hepatitis B Core NEGATIVE Total Antibody Hepatitis C Antibody NEGATIVE Magnesium Level 2.3 Triglycerides Level 130 Cholesterol Level 146 LDL Cholesterol, 58 Calculated HDL Cholesterol 62 Cholesterol/HDL 2.3 Ratio Medications Medication Current Medications Ondansetron HCl (Zofran Inj) 4 mg BRIDGE ORDER PRN IV NAUSEA/VOMITING; Start at 15:30; Stop 08/10/18 at 15:29 Acetaminophen (Tylenol Tab) 650 mg ER BRIDGE PRN PO .MILD PAIN 1-3 OR TEMP; Start 08/09/18 at 15:30; Stop 08/10/18 at 15:29 Dextrose/Sodium Chloride 1,000 ml @ 75 mls/hr [id number] IV Last administered on 08/09/18at 21:15; Admin Dose 75 MLS/HR; Start 08/09/18 at 15:48 IV Flush (NS 3 ml) 3 ml PER PROTOCOL IV ; Start 08/09/18 at 16:00 Ondansetron HCl (Zofran Inj) 4 mg Q6H PRN IV NAUSEA/VOMITING; Start 08/09/18 at 16:00 Acetaminophen (Tylenol Tab) 650 mg Q6H PRN PO .PAIN 1-3 OR TEMP; Start 08/09/18 at 16:00 Morphine Sulfate (morphine) 2 mg Q4H PRN IV .SEVERE PAIN 7-10; Start 08/09/18 at 16:00 Hydromorphone HCl (Dilaudid) 0.5 mg Q4H PRN IV .SEVERE PAIN 7-10 Last administered on 08/10/18at 08:12; Admin Dose 0.5 MG; Start 08/09/18 at 16:00 Famotidine (Pepcid Iv) 20 mg Q12 IV Last administered on 08/10/18at 08:12; Admin Dose 20 MG; Start 08/09/18 at 21:00 Ketorolac Tromethamine (Toradol) 15 mg Q6H PRN IV PAIN LEVEL 4-6; Start 08/09/18 at 16:30; Stop 08/12/18 at 16:29 AMANDA MILAN MD August 10, 2018 09:53
--- NOTE | 2018-08-10 13:12 | PN ---
Date/Time of Note Date/Time of Note DATE: 08/10/18 TIME: 12:45 Assessment/Plan VTE Prophylaxis Risk score (from [facility])>0 risk: 5 SCD applied (from [facility]): Yes Pharmacological prophylaxis: other (scds) Lines/Catheters IV Catheter Type (from [facility]): Peripheral IV Urinary Cath still in place: No Assessment/Plan Hospital Course Summary Assessment and Plan: Assessment: Upper abdominal pain with associated nausea/vomiting Profoundly elevated LFTs (normal bilirubin) -Hep B/C- negative -Hep A- pending -Auto-immune work-up pending Indirect Hyperbilirubinemia- noted 08/10/17 Hepatic steatosis 1.4 cm hypoechoic lesion within the right hepatic lobe -Ct with liver protocol - Benign hepatic hemangioma is identified Plan: MRCP- pending- called MRI- to f/u on results- as MRCP was taken yesterday- states "will follow-up" Continue clear liquid- if MRCP results come back positive, will attempt to schedule ERCP today Trend LFTs Patient seen in collaboration with Dr. Gómez Subjective/Free text: Course reviewed with nursing staff Patient interviewed and examined All labs, imaging and other results reviewed The patient resting in bed, discussed of CT scan via assembly hand As well as lab results, pt c/o n/v- instructed to utilize anti-emetic therapy Will maintain close observation PHYSICAL EXAMINATION: GENERAL: Well developed, well nourished, alert & oriented x 3, in no acute dist ress SKIN: No lesions HEAD: Normocephalic, atraumatic, no tenderness. EYES: Pupils equal reactive to light, no discharge. EARS/NOSE AND THROAT: Ears normal, nose normal. NECK: Supple, no masses. CHEST: Inspection within normal limits. CARDIOVASCULAR: Heart: Regular rate and rhythm RESPIRATORY: Lungs clear to auscultation GASTROINTESTINAL AND LIVER: Abdomen: Soft, upper abdominal pain, worse to RUQ, non-distended, no hernias, no masses, no organomegaly, no rebound tenderness, normoactive bowel sounds. Rectal: Deferred. EXTREMITIES: No cyanosis, clubbing or edema. Result Diagram: 08/10/18 0713 08/10/18 0713 Results 24hrs Laboratory Tests Test 08/09/18 18:02 08/10/18 07:13 Prothrombin Time 12.0 Prothrombin Time Ratio 0.9 INR International Normalized Ratio 0.88 Alpha Fetoprotein 4.34 Hepatitis B Surface Antigen NEGATIVE Hepatitis B Core Total Antibody NEGATIVE Hepatitis C Antibody NEGATIVE White Blood Count 7.2 Red Blood Count 4.44 Hemoglobin 12.4 Hematocrit 37.9 Mean Corpuscular Volume 85.4 Mean Corpuscular Hemoglobin 27.9 L Mean Corpuscular Hemoglobin Concent 32.7 Red Cell Distribution Width 13.7 Platelet Count 295 Mean Platelet Volume 10.4 Immature Granulocytes % 0.400 Neutrophils % 69.0 Lymphocytes % 21.6 Monocytes % 5.6 Eosinophils % 2.4 Basophils % 1.0 Nucleated Red Blood Cells % 0.0 Immature Granulocytes # 0.030 Neutrophils # 5.0 Lymphocytes # 1.6 Monocytes # 0.4 Eosinophils # 0.2 Basophils # 0.1 Nucleated Red Blood Cells # 0.0 Sodium Level 141 Potassium Level 3.9 Chloride Level 107 Carbon Dioxide Level 28 Anion Gap 6 Blood Urea Nitrogen 6 L Creatinine 0.80 Est Glomerular Filtrat Rate mL/min > 60 Glucose Level 119 Calcium Level 9.3 Magnesium Level 2.3 Total Bilirubin 1.5 H Direct Bilirubin 0.40 #H Indirect Bilirubin 1.1 Aspartate Amino Transf (AST/SGOT) 840 H Alanine Aminotransferase (ALT/SGPT) 871 H Alkaline Phosphatase 160 H Total Protein 6.8 Albumin 3.9 Globulin 2.90 Albumin/Globulin Ratio 1.34 Triglycerides Level 130 Cholesterol Level 146 LDL Cholesterol, Calculated 58 HDL Cholesterol 62 Cholesterol/HDL Ratio 2.3 Exam/Review of Systems Exam Vitals Vital Signs Date Temp Pulse Resp B/P (MAP) Pulse Ox O2 O2 Flow FiO2 Time Delivery Rate 08/10/18 98.6 68 18 94/55 (68) 96 08:00 08/09/18 Room Air 17:30 Intake and Output 08/09/18 08/09/18 08/10/18 1515:00 23:00 07:00 IntakeIntake Total 1040 ml BalanceBalance 1040 ml Results Results 24hrs Laboratory Tests Test 08/09/18 18:02 08/10/18 07:13 Prothrombin Time 12.0 Prothrombin Time Ratio 0.9 INR International Normalized Ratio 0.88 Alpha Fetoprotein 4.34 Hepatitis B Surface Antigen NEGATIVE Hepatitis B Core Total Antibody NEGATIVE Hepatitis C Antibody NEGATIVE White Blood Count 7.2 Red Blood Count 4.44 Hemoglobin 12.4 Hematocrit 37.9 Mean Corpuscular Volume 85.4 Mean Corpuscular Hemoglobin 27.9 L Mean Corpuscular Hemoglobin Concent 32.7 Red Cell Distribution Width 13.7 Platelet Count 295 Mean Platelet Volume 10.4 Immature Granulocytes % 0.400 Neutrophils % 69.0 Lymphocytes % 21.6 Monocytes % 5.6 Eosinophils % 2.4 Basophils % 1.0 Nucleated Red Blood Cells % 0.0 Immature Granulocytes # 0.030 Neutrophils # 5.0 Lymphocytes # 1.6 Monocytes # 0.4 Eosinophils # 0.2 Basophils # 0.1 Nucleated Red Blood Cells # 0.0 Sodium Level 141 Potassium Level 3.9 Chloride Level 107 Carbon Dioxide Level 28 Anion Gap 6 Blood Urea Nitrogen 6 L Creatinine 0.80 Est Glomerular Filtrat Rate mL/min > 60 Glucose Level 119 Calcium Level 9.3 Magnesium Level 2.3 Total Bilirubin 1.5 H Direct Bilirubin 0.40 #H Indirect Bilirubin 1.1 Aspartate Amino Transf (AST/SGOT) 840 H Alanine Aminotransferase (ALT/SGPT) 871 H Alkaline Phosphatase 160 H Total Protein 6.8 Albumin 3.9 Globulin 2.90 Albumin/Globulin Ratio 1.34 Triglycerides Level 130 Cholesterol Level 146 LDL Cholesterol, Calculated 58 HDL Cholesterol 62 Cholesterol/HDL Ratio 2.3 Medications Medication Current Medications Ondansetron HCl (Zofran Inj) 4 mg BRIDGE ORDER PRN IV NAUSEA/VOMITING; Start 08/09/18 at 15:30; Stop 08/10/18 at 15:29 Acetaminophen (Tylenol Tab) 650 mg ER BRIDGE PRN PO .MILD PAIN 1-3 OR TEMP; Start 08/09/18 at 15:30; Stop 08/10/18 at 15:29 Dextrose/Sodium Chloride 1,000 ml @ 75 mls/hr [id number] IV Last administered on 08/10/18at 09:49; Admin Dose 75 MLS/HR; Start 08/09/18 at 15:48 IV Flush (NS 3 ml) 3 ml PER PROTOCOL IV ; Start 08/09/18 at 16:00 Ondansetron HCl (Zofran Inj) 4 mg Q6H PRN IV NAUSEA/VOMITING; Start 08/09/18 at 16:00 Acetaminophen (Tylenol Tab) 650 mg Q6H PRN PO .PAIN 1-3 OR TEMP; Start 08/09/18 at 16:00 Morphine Sulfate (morphine) 2 mg Q4H PRN IV .SEVERE PAIN 7-10; Start 08/09/18 at 16:00 Hydromorphone HCl (Dilaudid) 0.5 mg Q4H PRN IV .SEVERE PAIN 7-10 Last ad ministered on 08/10/18at 08:12; Admin Dose 0.5 MG; Start 08/09/18 at 16:00 Famotidine (Pepcid Iv) 20 mg Q12 IV Last administered on 08/10/18at 08:12; Admin Dose 20 MG; Start 08/09/18 at 21:00 Ketorolac Tromethamine (Toradol) 15 mg Q6H PRN IV PAIN LEVEL 4-6; Start 08/09/18 at 16:30; Stop 08/12/18 at 16:29 BILL APONTE August 10, 2018 13:06
[2018-08-10 14:00] VITALS: BP 112/59; PULSE 80; RESP 20
--- NOTE | 2018-08-10 15:39 | PN ---
Date/Time of Note Date/Time of Note DATE: 08/10/18 TIME: 15:34 Assessment/Plan Lines/Catheters IV Catheter Type (from [facility]): Peripheral IV Juarez in Place (from [facility]): No Assessment/Plan Chief Complaint/Hosp Course 1. Abdominal pain 2. Transaminitis w hyperbilirubinemia 3. Dilated common bile duct with possible choledocholithiasis 4. Contracted gallbladder, ? porcelain (per ER note however not documented in the ultrasound) 5. Questionable liver lesion 6. Steatosis w +hep a AB -GI consult noted: possible ERCP -Eventual cholecystectomy -Pain control -Encourage weight optimization -hepatic optimization 7. BMI 33 -Nutrition and exercise optimization Thank you. Patient seen and examined in collaboration with Dr. Ryan Clark. Subjective 24 Hr Interval Summary Abdominal pain minimally improved however persistent. One episode of vomiting. No fevers, chills, sob, congested cough, cp, palpitations, sanchez, dizziness, nausea, vomiting, diarrhea, dysuria. Exam/Review of Systems Vital Signs Vitals Vital Signs Date Temp Pulse Resp B/P (MAP) Pulse Ox O2 O2 Flow FiO2 Time Delivery Rate 08/10/18 98.6 68 18 94/55 (68) 96 08:00 08/09/18 Room Air 17:30 Intake and Output 08/09/18 08/09/18 08/10/18 1515:00 23:00 07:00 IntakeIntake Total 1040 ml BalanceBalance 1040 ml Exam Free Text/Dictation Constitutional: alert, oriented, obese; No distress Psych: nl mood/affect; No anxiety Head: normocephalic, atraumatic Eyes: nl conjunctiva, EOMI, PERRL; No icteric ENMT: nl external ears & nose, mucosa pink and moist Neck: supple, non-tender; No jvd Respiratory: normal air movement; No congested cough, No labored breathing Cardiovascular: regular rate and rhythm; No edema Gastrointestinal: soft, tender (Minimal epigastric. Negative Meredith's); No distended, No rebound or guarding Musculoskeletal: nl extremities to inspection, nl gait and stance; No joint tenderness Extremities: normal pulses; No calf tenderness, No edema Neurological: nl mental status, nl speech, nl strength Skin: nl turgor; No rash or lesions, No diaphoresis Lymph: nl lymph nodes Results Result Diagram: 08/10/18 0713 08/10/18 0713 MAAME BARCENAS NP August 10, 2018 15:39
[2018-08-10 20:00] VITALS: BP 110/67; PULSE 69; RESP 18
[2018-08-10] MEDS: KETOROLAC 15 MG INJ IV PRN (20:22)
[2018-08-11 02:00] VITALS: BP 117/70; PULSE 63; RESP 18
[2018-08-11] MEDS: KETOROLAC 15 MG INJ IV PRN ×2 (06:02→12:15)
[2018-08-11] MEDS: DEXTROSE 5%-0.45% NACL 1,000 ML IV SCH ×2 (07:48→12:15)
[2018-08-11 08:00] VITALS: BP 105/72; PULSE 72; RESP 18
[2018-08-11] MEDS: FAMOTIDINE 20 MG INJ IV SCH ×2 (08:46→20:12)
--- NOTE | 2018-08-11 09:48 | PN ---
Date/Time of Note Date/Time of Note DATE: 08/11/18 TIME: 09:48 Assessment/Plan VTE Prophylaxis Risk score (from Ns)>0 risk: 2 SCD applied (from Ns): Yes Pharmacological prophylaxis: NA/contraindicated Pharm contraindication: low risk/ambulating Lines/Catheters [facility] ([facility] Peripheral IV Urinary Cath still in place: No Assessment/Plan Assessment/Plan 1. Acute right upper quadrant pain, - MRCP negative for choledocholithiasis - initial US showed contracted GB and ?porcelain GB but not documented - GI consultation appreciated and will monitor LFT and advance diet as tolerated - General surgery consultation appreciated. 2. Transaminitis - most likely secondary to #1 3. Symptomatic cholelithiasis - Gen Surgery on board and appreciate recommendations 4. Disposition - Monitor LFT and advance diet as tolerated Result Diagram: 08/11/18 0427 08/11/18 0428 Results 24hrs Laboratory Tests Test 08/10/18 13:11 08/11/18 04:27 08/11/18 04:28 Hepatitis A IgM Antibody NON-REACTIVE Hepatitis A Antibody Total POSITIVE H White Blood Count 7.1 Red Blood Count 4.41 Hemoglobin 12.3 Hematocrit 38.2 Mean Corpuscular Volume 86.6 Mean Corpuscular Hemoglobin 27.9 L Mean Corpuscular 32.2 Hemoglobin Concent Red Cell Distribution Width 13.4 Platelet Count 307 Mean Platelet Volume 10.7 H Immature Granulocytes % 0.400 Neutrophils % 65.5 Lymphocytes % 23.7 Monocytes % 7.2 Eosinophils % 2.4 Basophils % 0.8 Nucleated Red Blood Cells % 0.0 Immature Granulocytes # 0.030 Neutrophils # 4.7 Lymphocytes # 1.7 Monocytes # 0.5 Eosinophils # 0.2 Basophils # 0.1 Nucleated Red Blood Cells # 0.0 Sodium Level 141 Potassium Level 4.5 Chloride Level 108 Carbon Dioxide Level 27 Anion Gap 6 Blood Urea Nitrogen 3 L Creatinine 0.71 Est Glomerular Filtrat Rate mL/min > 60 Glucose Level 121 Calcium Level 9.1 Magnesium Level 2.1 Total Bilirubin 1.7 H Direct Bilirubin 0.70 #H Indirect Bilirubin 1.0 Aspartate Amino Transf (AST/SGOT) 599 H Alanine 741 H Aminotransferase (ALT/SGPT) Alkaline Phosphatase 185 H Total Protein 7.1 Albumin 3.7 Globulin 3.40 H Albumin/Globulin Ratio 1.08 Subjective 24 Hr Interval Summary Free Text/Dictation Patient still with persistent right upper quadrant discomfort. No acute overnight events. Exam/Review of Systems Exam Vitals Vital Signs Date Temp Pulse Resp B/P (MAP) Pulse Ox O2 O2 Flow FiO2 Time Delivery Rate 08/11/18 98.8 72 18 105/72 96 08:00 (83) 08/09/18 Room Air 17:30 Intake and Output 08/10/18 08/10/18 08/11/18 1515:00 23:00 07:00 IntakeIntake Total 790 ml 1000 ml 450 ml BalanceBalance 790 ml 1000 ml 450 ml Exam General: Patient is laying in bed and answers questions appropriately. no acute distress Respiratory: Clear to auscultation bilaterally. no wheezing or rhonchi Cardiovascular: S1, S2, regular rate and rhythm, no obvious murmurs Gastrointestinal: soft, tenderness to palpation RUQ, nondistended, bowel sounds heard. no rebound or guarding Ext: Moves all extremities spontaneously. no edema, cyanosis or clubbing Skin: no rashes or lesions appreciated Results Results 24hrs Laboratory Tests Test 08/10/18 13:11 08/11/18 04:27 08/11/18 04:28 Hepatitis A IgM Antibody NON-REACTIVE Hepatitis A Antibody Total POSITIVE H White Blood Count 7.1 Red Blood Count 4.41 Hemoglobin 12.3 Hematocrit 38.2 Mean Corpuscular Volume 86.6 Mean Corpuscular Hemoglobin 27.9 L Mean Corpuscular 32.2 Hemoglobin Concent Red Cell Distribution Width 13.4 Platelet Count 307 Mean Platelet Volume 10.7 H Immature Granulocytes % 0.400 Neutrophils % 65.5 Lymphocytes % 23.7 Monocytes % 7.2 Eosinophils % 2.4 Basophils % 0.8 Nucleated Red Blood Cells % 0.0 Immature Granulocytes # 0.030 Neutrophils # 4.7 Lymphocytes # 1.7 Monocytes # 0.5 Eosinophils # 0.2 Basophils # 0.1 Nucleated Red Blood Cells # 0.0 Sodium Level 141 Potassium Level 4.5 Chloride Level 108 Carbon Dioxide Level 27 Anion Gap 6 Blood Urea Nitrogen 3 L Creatinine 0.71 Est Glomerular Filtrat Rate mL/min > 60 Glucose Level 121 Calcium Level 9.1 Magnesium Level 2.1 Total Bilirubin 1.7 H Direct Bilirubin 0.70 #H Indirect Bilirubin 1.0 Aspartate Amino Transf (AST/SGOT) 599 H Alanine 741 H Aminotransferase (ALT/SGPT) Alkaline Phosphatase 185 H Total Protein 7.1 Albumin 3.7 Globulin 3.40 H Albumin/Globulin Ratio 1.08 Medications Medication Current Medications Dextrose/Sodium Chloride 1,000 ml @ 75 mls/hr [id number] IV Last administered on 08/10/18 22:52; Admin Dose 75 MLS/HR; Start 08/09/18 at 15:48 IV Flush (NS 3 ml) 3 ml PER PROTOCOL IV ; Start 08/09/18 at 16:00 Ondansetron HCl (Zofran Inj) 4 mg Q6H PRN IV NAUSEA/VOMITING; Start 08/09/18 at 16:00 Acetaminophen (Tylenol Tab) 650 mg Q6H PRN PO .PAIN 1-3 OR TEMP; Start 08/09/18 at 16:00 Morphine Sulfate (morphine) 2 mg Q4H PRN IV .SEVERE PAIN 7-10; Start 08/09/18 at 16:00 Hydromorphone HCl (Dilaudid) 0.5 mg Q4H PRN IV .SEVERE PAIN 7-10 Last administe red on 08/10/18at 08:12; Admin Dose 0.5 MG; Start 08/09/18 at 16:00 Famotidine (Pepcid Iv) 20 mg Q12 IV Last administered on 08/11/18at 08:46; Admin Dose 20 MG; Start 08/09/18 at 21:00 Ketorolac Tromethamine (Toradol) 15 mg Q6H PRN IV PAIN LEVEL 4-6 Last administered on 08/11/18 06:02; Admin Dose 15 MG; Start 08/09/18 at 16:30; Stop 08/12/18 at 16:29 AMANDA MILAN MD August 11, 2018 09:48
[2018-08-11 14:00] VITALS: BP 118/62; PULSE 74; RESP 18
--- NOTE | 2018-08-11 14:38 | PN ---
Date/Time of Note Date/Time of Note DATE: 08/11/18 TIME: 14:25 Assessment/Plan VTE Prophylaxis Risk score (from Ns)>0 risk: 2 SCD applied (from Ns): Yes Pharmacological prophylaxis: NA/contraindicated Pharm contraindication: liver dx Lines/Catheters [facility] (from [facility]): Peripheral IV Urinary Cath still in place: No Assessment/Plan Assessment/Plan Assessment: Upper abdominal pain with associated nausea/vomiting Profoundly elevated LFTs (normal bilirubin) -Hep A/B/C- negative -Auto-immune work-up pending Indirect Hyperbilirubinemia- noted 08/10/17 Hepatic steatosis 1.4 cm hypoechoic lesion within the right hepatic lobe -Ct with liver protocol - Benign hepatic hemangioma is identified Plan: MRCP- negative for choledocholithiasis -mild prominence of CBD Advance diet to full liquid Trend LFTs Patient seen in collaboration with Dr. Gómez Subjective/Free text: Course reviewed with nursing staff Patient interviewed and examined All labs, imaging and other results reviewed The patient resting in bed, discussed results of MRCP with the patient and the family at the bedside. LFTs are improving but bilirubin is slightly up. With the prominent CBD there is no definite stone. We will continue monitoring over the weekend. If patient worsens clinically and LFTs increase will consider ERCP on Tuesday. Currently no complaints of nausea, vomiting or fever. Patient has persistent right upper quadrant pain. Tolerating clear liquid diet well. Will advance to full liquid diet. PHYSICAL EXAMINATION: GENERAL: Well developed, obese , well nourished, alert & oriented x 3, in no acute distress SKIN: No lesions HEAD: Normocephalic, atraumatic, no tenderness. EYES: Pupils equal reactive to light, no discharge. EARS/NOSE AND THROAT: Ears normal, nose normal. NECK: Supple, no masses. CHEST: Inspection within normal limits. CARDIOVASCULAR: Heart: Regular rate and rhythm RESPIRATORY: Lungs clear to auscultation GASTROINTESTINAL AND LIVER: Abdomen: Soft, right upper quadrant abdominal pain, worse to RUQ, non-distended, no hernias, no masses, no organomegaly, no rebound tenderness, normoactive bowel sounds. Rectal: Deferred. EXTREMITIES: No cyanosis, clubbing or edema. Result Diagram: 08/11/18 0427 08/11/18 0428 Results 24hrs Laboratory Tests Test 08/11/18 04:27 08/11/18 04:28 White Blood Count 7.1 Red Blood Count 4.41 Hemoglobin 12.3 Hematocrit 38.2 Mean Corpuscular Volume 86.6 Mean Corpuscular Hemoglobin 27.9 L Mean Corpuscular Hemoglobin Concent 32.2 Red Cell Distribution Width 13.4 Platelet Count 307 Mean Platelet Volume 10.7 H Immature Granulocytes % 0.400 Neutrophils % 65.5 Lymphocytes % 23.7 Monocytes % 7.2 Eosinophils % 2.4 Basophils % 0.8 Nucleated Red Blood Cells % 0.0 Immature Granulocytes # 0.030 Neutrophils # 4.7 Lymphocytes # 1.7 Monocytes # 0.5 Eosinophils # 0.2 Basophils # 0.1 Nucleated Red Blood Cells # 0.0 Sodium Level 141 Potassium Level 4.5 Chloride Level 108 Carbon Dioxide Level 27 Anion Gap 6 Blood Urea Nitrogen 3 L Creatinine 0.71 Est Glomerular Filtrat Rate mL/min > 60 Glucose Level 121 Calcium Level 9.1 Magnesium Level 2.1 Total Bilirubin 1.7 H Direct Bilirubin 0.70 #H Indirect Bilirubin 1.0 Aspartate Amino Transf (AST/SGOT) 599 H Alanine Aminotransferase (ALT/SGPT) 741 H Alkaline Phosphatase 185 H Total Protein 7.1 Albumin 3.7 Globulin 3.40 H Albumin/Globulin Ratio 1.08 CC: KASIA GÓMEZ MD ; Exam/Review of Systems Exam Vitals Vital Signs Date Temp Pulse Resp B/P (MAP) Pulse Ox O2 O2 Flow FiO2 Time Delivery Rate 08/11/18 98.8 72 18 105/72 96 08:00 (83) 08/09/18 Room Air 17:30 Intake and Output 08/10/18 08/10/18 08/11/18 1515:00 23:00 07:00 IntakeIntake Total 790 ml 1000 ml 450 ml BalanceBalance 790 ml 1000 ml 450 ml Results Results 24hrs Laboratory Tests Test 08/11/18 04:27 08/11/18 04:28 White Blood Count 7.1 Red Blood Count 4.41 Hemoglobin 12.3 Hematocrit 38.2 Mean Corpuscular Volume 86.6 Mean Corpuscular Hemoglobin 27.9 L Mean Corpuscular Hemoglobin Concent 32.2 Red Cell Distribution Width 13.4 Platelet Count 307 Mean Platelet Volume 10.7 H Immature Granulocytes % 0.400 Neutrophils % 65.5 Lymphocytes % 23.7 Monocytes % 7.2 Eosinophils % 2.4 Basophils % 0.8 Nucleated Red Blood Cells % 0.0 Immature Granulocytes # 0.030 Neutrophils # 4.7 Lymphocytes # 1.7 Monocytes # 0.5 Eosinophils # 0.2 Basophils # 0.1 Nucleated Red Blood Cells # 0.0 Sodium Level 141 Potassium Level 4.5 Chloride Level 108 Carbon Dioxide Level 27 Anion Gap 6 Blood Urea Nitrogen 3 L Creatinine 0.71 Est Glomerular Filtrat Rate mL/min > 60 Glucose Level 121 Calcium Level 9.1 Magnesium Level 2.1 Total Bilirubin 1.7 H Direct Bilirubin 0.70 #H Indirect Bilirubin 1.0 Aspartate Amino Transf (AST/SGOT) 599 H Alanine Aminotransferase (ALT/SGPT) 741 H Alkaline Phosphatase 185 H Total Protein 7.1 Albumin 3.7 Globulin 3.40 H Albumin/Globulin Ratio 1.08 Medications Medication Current Medications Dextrose/Sodium Chloride 1,000 ml @ 75 mls/hr [id number] IV Last administered on 08/11/18at 12:15; Admin Dose 75 MLS/HR; Start 08/09/18 at 15:48 IV Flush (NS 3 ml) 3 ml PER PROTOCOL IV ; Start 08/09/18 at 16:00 Ondansetron HCl (Zofran Inj) 4 mg Q6H PRN IV NAUSEA/VOMITING; Start 08/09/18 at 16:00 Acetaminophen (Tylenol Tab) 650 mg Q6H PRN PO .PAIN 1-3 OR TEMP; Start 08/09/18 at 16:00 Morphine Sulfate (morphine) 2 mg Q4H PRN IV .SEVERE PAIN 7-10; Start 08/09/18 at 16:00 Hydromorphone HCl (Dilaudid) 0.5 mg Q4H PRN IV .SEVERE PAIN 7-10 Last administered on 08/10/18at 08:12; Admin Dose 0.5 MG; Start 08/09/18 at 16:00 Famotidine (Pepcid Iv) 20 mg Q12 IV Last administered on 08/11/18at 08:46; Admin Dose 20 MG; Start 08/09/18 at 21:00 Ketorolac Tromethamine (Toradol) 15 mg Q6H PRN IV PAIN LEVEL 4-6 Last administered on 08/11/18at 12:15; Admin Dose 15 MG; Start 5/15/19 at 16:30; Stop 08/12/18 at 16:29 LUKAS RENTERIA NP August 11, 2018 14:37
--- NOTE | 2018-08-11 16:39 | PN ---
Date/Time of Note Date/Time of Note DATE: 08/11/18 TIME: 16:35 Assessment/Plan Lines/Catheters IV Catheter Type (from [facility]): Peripheral IV Juarez in Place (from [facility]): No Assessment/Plan Chief Complaint/Hosp Course 1. Abdominal pain 2. Transaminitis w hyperbilirubinemia 3. Dilated common bile duct with possible choledocholithiasis 4. Steatosis w +hep a AB -GI for ERCP. I believe with dilated duct, elevated tb/transaminitis, it is justified to proceed with ercp -Eventual cholecystectomy -Pain control -Encourage weight optimization -hepatic optimization 5. BMI 33 -Nutrition and exercise optimization Thank you Subjective 24 Hr Interval Summary Abdominal pain minimally improved however persistent. No fevers, chills, sob, congested cough, cp, palpitations, sanchez, dizziness, nausea, vomiting, diarrhea, dysuria. MRCP noted. Exam/Review of Systems Vital Signs Vitals Vital Signs Date Temp Pulse Resp B/P (MAP) Pulse Ox O2 O2 Flow FiO2 Time Delivery Rate 08/11/18 98.6 74 18 118/62 96 14:00 (80) 08/09/18 Room Air 17:30 Intake and Output 08/10/18 08/10/18 08/11/18 1515:00 23:00 07:00 IntakeIntake Total 790 ml 1000 ml 450 ml BalanceBalance 790 ml 1000 ml 450 ml Exam Free Text/Dictation Constitutional: alert, oriented, obese; No distress Psych: nl mood/affect; No anxiety Head: normocephalic, atraumatic Eyes: nl conjunctiva, EOMI, PERRL; No icteric ENMT: nl external ears & nose, mucosa pink and moist Neck: supple, non-tender; No jvd Respiratory: normal air movement; No congested cough, No labored breathing Cardiovascular: regular rate and rhythm; No edema Gastrointestinal: soft, tender (Minimal epigastric. Negative Meredith's); No distended, No rebound or guarding Musculoskeletal: nl extremities to inspection, nl gait and stance; No joint tenderness Extremities: normal pulses; No calf tenderness, No edema Neurological: nl mental status, nl speech, nl strength Skin: nl turgor; No rash or lesions, No diaphoresis Lymph: nl lymph nodes Results Free Text/Dictation MRCP: 1. Hepatomegaly - 20 cm. 2. Cholelithiasis, without evidence for cholecystitis. 3. There is nonspecific mild prominence of the common bile duct, without intrahepatic biliary dilatation or choledocholithiasis. Result Diagram: 08/11/18 0427 08/11/18 0428 BRICE VALENZUELA MD August 11, 2018 16:39
[2018-08-11 20:00] VITALS: BP 120/67; PULSE 63; RESP 19
[2018-08-12 02:00] VITALS: BP 119/73; PULSE 74; RESP 18
[2018-08-12] MEDS: DEXTROSE 5%-0.45% NACL 1,000 ML IV SCH ×2 (03:53→16:20)
[2018-08-12] MEDS: KETOROLAC 15 MG INJ IV PRN ×2 (07:44→14:08)
[2018-08-12] MEDS: FAMOTIDINE 20 MG INJ IV SCH ×2 (07:49→20:45)
[2018-08-12] MEDS: ONDANSETRON 4 MG INJ IV PRN ×3 (07:49→20:45)
[2018-08-12 07:51] VITALS: BP 116/67; PULSE 66; RESP 18
--- NOTE | 2018-08-12 13:35 | PN ---
Date/Time of Note Date/Time of Note DATE: 08/12/18 TIME: 13:19 Assessment/Plan VTE Prophylaxis Risk score (from Nsg)>0 risk: 2 SCD applied (from [facility]sg): Yes Pharmacological prophylaxis: heparin Lines/Catheters IV Catheter Type (from [facility]): Peripheral IV Urinary Cath still in place: No Assessment/Plan Assessment/Plan Assessment: Upper abdominal pain with associated nausea/vomiting Profoundly elevated LFTs - improving -Hep A/B/C- negative -Auto-immune work-up pending Hyperbilirubinemia stable today, mild increase. Hepatic steatosis 1.4 cm hypoechoic lesion within the right hepatic lobe -Ct with liver protocol - Benign hepatic hemangioma is identified Plan: MRCP- negative for choledocholithiasis -mild prominence of CBD Continue full liquid diet Trend LFTs and bilirubin - LFT's improving, bilirubin stable but slight increase Patient seen in collaboration with Dr. Cates Subjective/Free text: Course reviewed with nursing staff Patient interviewed and examined All labs, imaging and other results reviewed The patient resting in bed, discussed results of MRCP with the patient and the family at the bedside, discussed results of labs. LFTs are improving but bilirubin is slightly up. No definite stones on MRCP. We will continue monitoring over the weekend. If patient worsens clinically and LFTs increase will consider ERCP on Tuesday. Discussed with patient via electromatic typist. She is agreeable to proceed if necessary. She reports one episode of nausea and vomiting with oral intake. She is tolerating liquids and small amounts of full liquids. Patient has persistent right upper quadrant pain. PHYSICAL EXAMINATION: GENERAL: Well developed, obese , well nourished, alert & oriented x 3, in no acute distress SKIN: No lesions HEAD: Normocephalic, atraumatic, no tenderness. EYES: Pupils equal reactive to light, no discharge. EARS/NOSE AND THROAT: Ears normal, nose normal. NECK: Supple, no masses. CHEST: Inspection within normal limits. CARDIOVASCULAR: Heart: Regular rate and rhythm RESPIRATORY: Lungs clear to auscultation GASTROINTESTINAL AND LIVER: Abdomen: Soft, right upper quadrant abdominal pain, worse to RUQ, non-distended, no hernias, no masses, no organomegaly, no rebound tenderness, normoactive bowel sounds. Rectal: Deferred. EXTREMITIES: No cyanosis, clubbing or edema. Result Diagram: 08/12/18 0546 08/12/18 0546 Results 24hrs Laboratory Tests Test 08/12/18 05:46 White Blood Count 7.9 Red Blood Count 4.56 Hemoglobin 12.7 Hematocrit 39.2 Mean Corpuscular Volume 86.0 Mean Corpuscular Hemoglobin 27.9 L Mean Corpuscular Hemoglobin Concent 32.4 Red Cell Distribution Width 13.7 Platelet Count 311 Mean Platelet Volume 10.5 H Immature Granulocytes % 0.300 Neutrophils % 67.0 Lymphocytes % 22.3 Monocytes % 7.8 Eosinophils % 1.6 Basophils % 1.0 Nucleated Red Blood Cells % 0.0 Immature Granulocytes # 0.020 Neutrophils # 5.3 Lymphocytes # 1.8 Monocytes # 0.6 Eosinophils # 0.1 Basophils # 0.1 Nucleated Red Blood Cells # 0.0 Sodium Level 142 Potassium Level 4.5 Chloride Level 108 Carbon Dioxide Level 27 Anion Gap 7 Blood Urea Nitrogen 2 L Creatinine 0.69 Est Glomerular Filtrat Rate mL/min > 60 Glucose Level 121 Calcium Level 9.0 Magnesium Level 2.0 Total Bilirubin 1.8 H Direct Bilirubin 0.90 #H Indirect Bilirubin 0.9 Aspartate Amino Transf (AST/SGOT) 320 H Alanine Aminotransferase (ALT/SGPT) 553 H Alkaline Phosphatase 171 H Total Protein 6.9 Albumin 3.7 Globulin 3.20 Albumin/Globulin Ratio 1.15 CC: ERIN CATES ; Exam/Review of Systems Exam Vitals Vital Signs Date Temp Pulse Resp B/P (MAP) Pulse Ox O2 O2 Flow FiO2 Time Delivery Rate 08/12/18 98.3 66 18 116/67 99 07:51 (83) 08/09/18 Room Air 17:30 Intake and Output 08/11/18 08/11/18 08/12/18 1515:00 23:00 07:00 IntakeIntake Total 1225 ml 625 ml 940 ml BalanceBalance 1225 ml 625 ml 940 ml Results Results 24hrs Laboratory Tests Test 08/12/18 05:46 White Blood Count 7.9 Red Blood Count 4.56 Hemoglobin 12.7 Hematocrit 39.2 Mean Corpuscular Volume 86.0 Mean Corpuscular Hemoglobin 27.9 L Mean Corpuscular Hemoglobin Concent 32.4 Red Cell Distribution Width 13.7 Platelet Count 311 Mean Platelet Volume 10.5 H Immature Granulocytes % 0.300 Neutrophils % 67.0 Lymphocytes % 22.3 Monocytes % 7.8 Eosinophils % 1.6 Basophils % 1.0 Nucleated Red Blood Cells % 0.0 Immature Granulocytes # 0.020 Neutrophils # 5.3 Lymphocytes # 1.8 Monocytes # 0.6 Eosinophils # 0.1 Basophils # 0.1 Nucleated Red Blood Cells # 0.0 Sodium Level 142 Potassium Level 4.5 Chloride Level 108 Carbon Dioxide Level 27 Anion Gap 7 Blood Urea Nitrogen 2 L Creatinine 0.69 Est Glomerular Filtrat Rate mL/min > 60 Glucose Level 121 Calcium Level 9.0 Magnesium Level 2.0 Total Bilirubin 1.8 H Direct Bilirubin 0.90 #H Indirect Bilirubin 0.9 Aspartate Amino Transf (AST/SGOT) 320 H Alanine Aminotransferase (ALT/SGPT) 553 H Alkaline Phosphatase 171 H Total Protein 6.9 Albumin 3.7 Globulin 3.20 Albumin/Globulin Ratio 1.15 Medications Medication Current Medications Dextrose/Sodium Chloride 1,000 ml @ 75 mls/hr [id number] IV Last administered on 08/12/18 03:53; Admin Dose 75 MLS/HR; Start 08/09/18 at 15:48 IV Flush (NS 3 ml) 3 ml PER PROTOCOL IV ; Start 08/09/18 at 16:00 Ondansetron HCl (Zofran Inj) 4 mg Q6H PRN IV NAUSEA/VOMITING Last administered on 08/12/18 07:49; Admin Dose 4 MG; Start 08/09/18 at 16:00 Acetaminophen (Tylenol Tab) 650 mg Q6H PRN PO .PAIN 1-3 OR TEMP; Start 08/09/18 at 16:00 Morphine Sulfate (morphine) 2 mg Q4H PRN IV .SEVERE PAIN 7-10; Start 08/09/18 at 16:00 Hydromorphone HCl (Dilaudid) 0.5 mg Q4H PRN IV .SEVERE PAIN 7-10 Last admi nistered on 08/10/18 08:12; Admin Dose 0.5 MG; Start 08/09/18 at 16:00 Famotidine (Pepcid Iv) 20 mg Q12 IV Last administered on 08/12/18 07:49; Admin Dose 20 MG; Start 08/09/18 at 21:00 Ketorolac Tromethamine (Toradol) 15 mg Q6H PRN IV PAIN LEVEL 4-6 Last administered on 5/18/19at 07:44; Admin Dose 15 MG; Start 08/09/18 at 16:30; Stop 08/12/18 at 16:29 SCOOBY DIAZ NP August 12, 2018 13:29
--- NOTE | 2018-08-12 13:54 | PN ---
Date/Time of Note Date/Time of Note DATE: 08/12/18 TIME: 13:50 Assessment/Plan VTE Prophylaxis Risk score (from Ns)>0 risk: 2 SCD applied (from Ns): Yes Pharmacological prophylaxis: NA/contraindicated Pharm contraindication: low risk/ambulating Lines/Catheters [facility] Per[facility] IV Urinary Cath still in place: No Assessment/Plan Assessment/Plan 1. Acute right upper quadrant pain - still with vomiting after eating. LFT trending down but bilirubin trending up - MRCP negative for choledocholithiasis - initial US showed contracted GB and ?porcelain GB but not documented - GI consultation appreciated and if bilirubin and LFT continue to worsen, will plan for ERCP on Tuesday - General surgery consultation appreciated. 2. Symptomatic cholelithiasis - Gen Surgery on board and appreciate recommendations 3. Disposition - Continue monitoring for diet tolerance and improvement in LFT. If continues to worsen, ERCP planned for Tuesday Result Diagram: 08/12/18 0546 08/12/18 0546 Results 24hrs Laboratory Tests Test 08/12/18 05:46 White Blood Count 7.9 Red Blood Count 4.56 Hemoglobin 12.7 Hematocrit 39.2 Mean Corpuscular Volume 86.0 Mean Corpuscular Hemoglobin 27.9 L Mean Corpuscular Hemoglobin Concent 32.4 Red Cell Distribution Width 13.7 Platelet Count 311 Mean Platelet Volume 10.5 H Immature Granulocytes % 0.300 Neutrophils % 67.0 Lymphocytes % 22.3 Monocytes % 7.8 Eosinophils % 1.6 Basophils % 1.0 Nucleated Red Blood Cells % 0.0 Immature Granulocytes # 0.020 Neutrophils # 5.3 Lymphocytes # 1.8 Monocytes # 0.6 Eosinophils # 0.1 Basophils # 0.1 Nucleated Red Blood Cells # 0.0 Sodium Level 142 Potassium Level 4.5 Chloride Level 108 Carbon Dioxide Level 27 Anion Gap 7 Blood Urea Nitrogen 2 L Creatinine 0.69 Est Glomerular Filtrat Rate mL/min > 60 Glucose Level 121 Calcium Level 9.0 Magnesium Level 2.0 Total Bilirubin 1.8 H Direct Bilirubin 0.90 #H Indirect Bilirubin 0.9 Aspartate Amino Transf (AST/SGOT) 320 H Alanine Aminotransferase (ALT/SGPT) 553 H Alkaline Phosphatase 171 H Total Protein 6.9 Albumin 3.7 Globulin 3.20 Albumin/Globulin Ratio 1.15 Subjective 24 Hr Interval Summary Free Text/Dictation Patient is still with vomiting after meals and with discomfort in RUQ relieved with pain medications. Exam/Review of Systems Exam Vitals Vital Signs Date Temp Pulse Resp B/P (MAP) Pulse Ox O2 O2 Flow FiO2 Time Delivery Rate 08/12/18 98.3 66 18 116/67 99 07:51 (83) 08/09/18 Room Air 17:30 Intake and Output 08/11/18 08/11/18 08/12/18 1515:00 23:00 07:00 IntakeIntake Total 1225 ml 625 ml 940 ml BalanceBalance 1225 ml 625 ml 940 ml Exam General: no acute distress Respiratory: Clear to auscultation bilaterally. no wheezing or rhonchi Cardiovascular: S1, S2, regular rate and rhythm, no obvious murmurs Gastrointestinal: soft, tenderness to palpation RUQ, nondistended, bowel sounds heard. no rebound or guarding Ext: no edema, cyanosis or clubbing Skin: no rashes or lesions appreciated Results Results 24hrs Laboratory Tests Test 08/12/18 05:46 White Blood Count 7.9 Red Blood Count 4.56 Hemoglobin 12.7 Hematocrit 39.2 Mean Corpuscular Volume 86.0 Mean Corpuscular Hemoglobin 27.9 L Mean Corpuscular Hemoglobin Concent 32.4 Red Cell Distribution Width 13.7 Platelet Count 311 Mean Platelet Volume 10.5 H Immature Granulocytes % 0.300 Neutrophils % 67.0 Lymphocytes % 22.3 Monocytes % 7.8 Eosinophils % 1.6 Basophils % 1.0 Nucleated Red Blood Cells % 0.0 Immature Granulocytes # 0.020 Neutrophils # 5.3 Lymphocytes # 1.8 Monocytes # 0.6 Eosinophils # 0.1 Basophils # 0.1 Nucleated Red Blood Cells # 0.0 Sodium Level 142 Potassium Level 4.5 Chloride Level 108 Carbon Dioxide Level 27 Anion Gap 7 Blood Urea Nitrogen 2 L Creatinine 0.69 Est Glomerular Filtrat Rate mL/min > 60 Glucose Level 121 Calcium Level 9.0 Magnesium Level 2.0 Total Bilirubin 1.8 H Direct Bilirubin 0.90 #H Indirect Bilirubin 0.9 Aspartate Amino Transf (AST/SGOT) 320 H Alanine Aminotransferase (ALT/SGPT) 553 H Alkaline Phosphatase 171 H Total Protein 6.9 Albumin 3.7 Globulin 3.20 Albumin/Globulin Ratio 1.15 Medications Medication Current Medications Dextrose/Sodium Chloride 1,000 ml @ 75 mls/hr [id number] IV Last administered on 08/12/18 03:53; Admin Dose 75 MLS/HR; Start 08/09/18 at 15:48 IV Flush (NS 3 ml) 3 ml PER PROTOCOL IV ; Start 08/09/18 at 16:00 Ondansetron HCl (Zofran Inj) 4 mg Q6H PRN IV NAUSEA/VOMITING Last administered on 08/12/18 07:49; Admin Dose 4 MG; Start 08/09/18 at 16:00 Acetaminophen (Tylenol Tab) 650 mg Q6H PRN PO .PAIN 1-3 OR TEMP; Start 08/09/18 at 16:00 Morphine Sulfate (morphine) 2 mg Q4H PRN IV .SEVERE PAIN 7-10; Start 08/09/18 at 16:00 Hydromorphone HCl (Dilaudid) 0.5 mg Q4H PRN IV .SEVERE PAIN 7-10 Last administered on 08/10/18 08:12; Admin Dose 0.5 MG; Start 08/09/18 at 16:00 Famotidine (Pepcid Iv) 20 mg Q12 IV Last administered on 08/12/18 07:49; Admin Dose 20 MG; Start 08/09/18 at 21:00 Ketorolac Tromethamine (Toradol) 15 mg Q6H PRN IV PAIN LEVEL 4-6 Last administered on 08/12/18 07:44; Admin Dose 15 MG; Start 08/09/18 at 16:30; Stop 08/12/18 at 16:29 AMANDA MILAN MD August 12, 2018 13:54
[2018-08-12 14:00] VITALS: BP 121/66; PULSE 80; RESP 18
[2018-08-12] MEDS: HYDROmorphONE 0.5 MG/0.5 ML SYG IV PRN ×2 (16:26→20:45)
--- NOTE | 2018-08-12 16:46 | PN ---
Date/Time of Note Date/Time of Note DATE: 08/12/18 TIME: 16:42 Assessment/Plan Lines/Catheters IV Catheter Type (from [facility] Peripheral IV Juarez in Place (from [facility]): No Assessment/Plan Chief Complaint/Hosp Course 1. Abdominal pain 2. Transaminitis w hyperbilirubinemia (bili uptrending) 3. Dilated common bile duct with possible choledocholithiasis 4. Steatosis w +hep a AB -GI for ERCP. With dilated duct, increasing tb/transaminitis, it is justified to proceed with ercp -Eventual cholecystectomy -Pain control -Encourage weight optimization -hepatic optimization 5. BMI 33 -Nutrition and exercise optimization Thank you. Patient seen and examined in collaboration with Dr. Ryan Clark. Subjective 24 Hr Interval Summary Continues to have RUQ pain, nausea vomiting w meals. Bili up-trending. No fevers, chills, sob, congested cough, cp, palpitations, sanchez, dizziness, d/dysuria. Exam/Review of Systems Vital Signs Vitals Vital Signs Date Temp Pulse Resp B/P (MAP) Pulse Ox O2 O2 Flow FiO2 Time Delivery Rate 08/12/18 98.3 66 18 116/67 99 07:51 (83) 08/09/18 Room Air 17:30 Intake and Output 08/11/18 08/11/18 08/12/18 1414:59 22:59 06:59 IntakeIntake Total 1225 ml 625 ml 940 ml BalanceBalance 1225 ml 625 ml 940 ml Exam Free Text/Dictation Constitutional: alert, oriented, obese; No distress Psych: nl mood/affect; No anxiety Head: normocephalic, atraumatic Eyes: nl conjunctiva, EOMI, PERRL; No icteric ENMT: nl external ears & nose, mucosa pink and moist Neck: supple, non-tender; No jvd Respiratory: normal air movement; No congested cough, No labored breathing Cardiovascular: regular rate and rhythm; No edema Gastrointestinal: soft, tender (Minimal epigastric. Negative Meredith's); No distended, No rebound or guarding Musculoskeletal: nl extremities to inspection, nl gait and stance; No joint tenderness Extremities: normal pulses; No calf tenderness, No edema Neurological: nl mental status, nl speech, nl strength Skin: nl turgor; No rash or lesions, No diaphoresis Lymph: nl lymph nodes Results Result Diagram: 08/12/18 0546 08/12/18 0546 MAAME BARCENAS NP August 12, 2018 16:46
[2018-08-12] MEDS ORDERED: KETOROLAC 15 MG INJ IV PRN (20:30)
[2018-08-12 20:40] VITALS: BP 121/65; PULSE 63; RESP 18
[2018-08-13] MEDS: HYDROmorphONE 0.5 MG/0.5 ML SYG IV PRN (01:32)
[2018-08-13] MEDS ORDERED: HYDROmorphONE 0.5 MG/0.5 ML SYG IV ONE (02:00)
[2018-08-13] MEDS: ONDANSETRON 4 MG INJ IV PRN ×4 (02:34→20:13)
[2018-08-13 02:35] VITALS: BP 116/61; PULSE 66; RESP 20
[2018-08-13] MEDS: DEXTROSE 5%-0.45% NACL 1,000 ML IV SCH ×2 (04:21→18:07)
[2018-08-13 08:19] VITALS: BP 121/61; PULSE 66; RESP 17
[2018-08-13] MEDS: FAMOTIDINE 20 MG INJ IV SCH ×2 (08:31→20:12)
[2018-08-13] MEDS: HYDROmorphONE 1 MG/ML SYG IV PRN ×3 (08:31→20:13)
[2018-08-13] MEDS: POTASSIUM CHLORIDE 100 ML IVPB SCH ×2 (10:26→14:24)
--- NOTE | 2018-08-13 10:55 | PN ---
Date/Time of Note Date/Time of Note DATE: 08/13/18 TIME: 10:52 Assessment/Plan VTE Prophylaxis Risk score (from Ns)>0 risk: 2 SCD applied (from Ns): Yes Pharmacological prophylaxis: NA/contraindicated Pharm contraindication: low risk/ambulating Lines/Catheters IV Catheter Type (from Nrsg): Peripheral IV Urinary Cath still in place: No Assessment/Plan Assessment/Plan 1. Acute right upper quadrant pain - patients pain persists and not able to tolerate PO intake due to vomiting - will touch base with GI regarding ERCP plans - Bilirubin continues to trend up - MRCP negative for choledocholithiasis - initial US showed contracted GB and ?porcelain GB but not documented - General surgery consultation appreciated. 2. Symptomatic cholelithiasis - Gen Surgery on board and appreciate recommendations 3. Disposition - Patient still with pain in RUQ area and PO intolerance. Would benefit from ERCP and will touch base with GI regarding plan of care Result Diagram: 08/13/18 0520 08/13/18 0519 Results 24hrs Laboratory Tests Test 08/13/18 05:19 08/13/18 05:20 Sodium Level 137 Potassium Level 3.4 L Chloride Level 104 Carbon Dioxide Level 26 Anion Gap 7 Blood Urea Nitrogen 5 L Creatinine 0.67 Est Glomerular Filtrat Rate mL/min > 60 Glucose Level 154 Calcium Level 9.1 Magnesium Level 1.9 Total Bilirubin 2.2 H Direct Bilirubin 1.30 H Indirect Bilirubin 0.9 Aspartate Amino Transf (AST/SGOT) 258 H Alanine Aminotransferase (ALT/SGPT) 462 H Alkaline Phosphatase 178 H Total Protein 6.9 Albumin 3.9 Globulin 3.00 Albumin/Globulin Ratio 1.30 White Blood Count 14.2 #H Red Blood Count 4.61 Hemoglobin 12.9 Hematocrit 39.6 Mean Corpuscular Volume 85.9 Mean Corpuscular Hemoglobin 28.0 L Mean Corpuscular Hemoglobin Concent 32.6 Red Cell Distribution Width 13.9 Platelet Count 300 Mean Platelet Volume 11.0 H Immature Granulocytes % 0.400 Neutrophils % 87.3 H Lymphocytes % 7.9 L Monocytes % 4.1 Eosinophils % 0.1 Basophils % 0.2 Nucleated Red Blood Cells % 0.0 Immature Granulocytes # 0.060 H Neutrophils # 12.4 H Lymphocytes # 1.1 Monocytes # 0.6 Eosinophils # 0.0 Basophils # 0.0 Nucleated Red Blood Cells # 0.0 Subjective 24 Hr Interval Summary Free Text/Dictation Patient is still not tolerating PO intake with vomiting and pain in RUQ area. States had a rough night due to pain and nausea with vomiting. Exam/Review of Systems Exam Vitals Vital Signs Date Temp Pulse Resp B/P (MAP) Pulse Ox O2 O2 Flow FiO2 Time Delivery Rate 08/13/18 98.9 66 17 121/61 96 Room Air 08:19 (81) Intake and Output 08/12/18 08/12/18 08/13/18 1414:59 22:59 06:59 IntakeIntake Total 700 ml 825 ml 1320 ml BalanceBalance 700 ml 825 ml 1320 ml Exam General: distress secondary to pain and nausea Respiratory: Clear to auscultation bilaterally. no wheezing or rhonchi Cardiovascular: S1, S2, regular rate and rhythm, no obvious murmurs Gastrointestinal: soft, tenderness to palpation RUQ, nondistended, bowel sounds heard. no rebound or guarding Ext: no edema, cyanosis or clubbing Skin: no rashes or lesions appreciated Results Results 24hrs Laboratory Tests Test 08/13/18 05:19 08/13/18 05:20 Sodium Level 137 Potassium Level 3.4 L Chloride Level 104 Carbon Dioxide Level 26 Anion Gap 7 Blood Urea Nitrogen 5 L Creatinine 0.67 Est Glomerular Filtrat Rate mL/min > 60 Glucose Level 154 Calcium Level 9.1 Magnesium Level 1.9 Total Bilirubin 2.2 H Direct Bilirubin 1.30 H Indirect Bilirubin 0.9 Aspartate Amino Transf (AST/SGOT) 258 H Alanine Aminotransferase (ALT/SGPT) 462 H Alkaline Phosphatase 178 H Total Protein 6.9 Albumin 3.9 Globulin 3.00 Albumin/Globulin Ratio 1.30 White Blood Count 14.2 #H Red Blood Count 4.61 Hemoglobin 12.9 Hematocrit 39.6 Mean Corpuscular Volume 85.9 Mean Corpuscular Hemoglobin 28.0 L Mean Corpuscular Hemoglobin Concent 32.6 Red Cell Distribution Width 13.9 Platelet Count 300 Mean Platelet Volume 11.0 H Immature Granulocytes % 0.400 Neutrophils % 87.3 H Lymphocytes % 7.9 L Monocytes % 4.1 Eosinophils % 0.1 Basophils % 0.2 Nucleated Red Blood Cells % 0.0 Immature Granulocytes # 0.060 H Neutrophils # 12.4 H Lymphocytes # 1.1 Monocytes # 0.6 Eosinophils # 0.0 Basophils # 0.0 Nucleated Red Blood Cells # 0.0 Medications Medication Current Medications Dextrose/Sodium Chloride 1,000 ml @ 75 mls/hr [id number] IV Last administered on 08/13/18 04:21; Admin Dose 75 MLS/HR; Start 08/09/18 at 15:48 IV Flush (NS 3 ml) 3 ml PER PROTOCOL IV ; Start 08/09/18 at 16:00 Acetaminophen (Tylenol Tab) 650 mg Q6H PRN PO .PAIN 1-3 OR TEMP; Start 08/09/18 at 16:00 Famotidine (Pepcid Iv) 20 mg Q12 IV Last administered on 08/13/18 08:31; Admin Dose 20 MG; Start 08/09/18 at 21:00 Ketorolac Tromethamine (Toradol) 15 mg Q6H PRN IV PAIN Last administered on 08/13/18 10:32; Admin Dose 15 MG; Start 08/12/18 at 20:30; Stop 08/13/18 at 20:29 Ondansetron HCl (Zofran Inj) 4 mg Q4H PRN IV NAUSEA/VOMITING Last administered on 08/13/18 08:32; Admin Dose 4 MG; Start 08/13/18 at 02:00 Hydromorphone HCl (Dilaudid) 1 mg Q3H PRN IV SEVERE PAIN LEVEL 7-10 Last administered on 08/13/18 08:31; Admin Dose 1 MG; Start 08/13/18 at 05:00 Potassium Chloride 100 ml @ 50 mls/hr Q2H IVPB Last administered on 08/13/18 10:26; Admin Dose 50 MLS/HR; Start 08/13/18 at 09:30; Stop 08/13/18 at 13:29 Polyethylene Glycol (Miralax) 17 gm DAILY PRN PO CONSTIPATION; Start 08/13/18 at 11:00; Status UNV Docusate Sodium (Colace) 100 mg BID PRN PO CONSTIPATION; Start 08/13/18 at 11:00; Status UNV AMANDA MLIAN MD August 13, 2018 10:55
[2018-08-13] MEDS ORDERED: POLYETHYLENE GLYCOL 17 GM PACKET PO PRN (11:00)
[2018-08-13] MEDS ORDERED: DOCUSATE SODIUM 100 MG CAP PO PRN (11:00)
--- NOTE | 2018-08-13 13:13 | PN ---
Date/Time of Note Date/Time of Note DATE: 08/13/18 TIME: 13:07 Assessment/Plan Lines/Catheters IV Catheter Type (from [facility]): Peripheral IV Juarez in Place (from [facility]): No Assessment/Plan Chief Complaint/Hosp Course 1. Abdominal pain 2. Transaminitis w hyperbilirubinemia (bili uptrending) 3. Dilated common bile duct with possible choledocholithiasis 4. Steatosis w +hep a AB -GI for ERCP. With dilated duct, increasing tb/transaminitis, it is justified to proceed with ercp -Eventual cholecystectomy -Pain control -Encourage weight optimization -hepatic optimization 5. BMI 33 -Nutrition and exercise optimization Thank you. Patient seen and examined in collaboration with Dr. Ryan Clark. Subjective 24 Hr Interval Summary Continues to have increasing tbili, nausea, vomiting and ruq pain. No chills, sob, congested cough, cp, palpitations, sanchez, dizziness, n/v/d/dysuria. Exam/Review of Systems Vital Signs Vitals Vital Signs Date Temp Pulse Resp B/P (MAP) Pulse Ox O2 O2 Flow FiO2 Time Delivery Rate 08/13/18 98.9 66 17 121/61 96 Room Air 08:19 (81) Intake and Output 08/12/18 08/12/18 08/13/18 1414:59 22:59 06:59 IntakeIntake Total 700 ml 825 ml 1320 ml BalanceBalance 700 ml 825 ml 1320 ml Exam Free Text/Dictation Constitutional: alert, oriented, obese; No distress Psych: nl mood/affect; No anxiety Head: normocephalic, atraumatic Eyes: nl conjunctiva, EOMI, PERRL; No icteric ENMT: nl external ears & nose, mucosa pink and moist Neck: supple, non-tender; No jvd Respiratory: normal air movement; No congested cough, No labored breathing Cardiovascular: regular rate and rhythm; No edema Gastrointestinal: soft, tender (Minimal epigastric. Negative Meredith's); No distended, No rebound or guarding Musculoskeletal: nl extremities to inspection, nl gait and stance; No joint tenderness Extremities: normal pulses; No calf tenderness, No edema Neurological: nl mental status, nl speech, nl strength Skin: nl turgor; No rash or lesions, No diaphoresis Lymph: nl lymph nodes Results Result Diagram: 08/13/18 0520 08/13/18 0519 MAAME BARCENAS NP August 13, 2018 13:12
[2018-08-13 14:00] VITALS: BP 121/68; PULSE 74; RESP 17
--- NOTE | 2018-08-13 14:55 | PN ---
Date/Time of Note Date/Time of Note DATE: 08/13/18 TIME: 14:41 Assessment/Plan VTE Prophylaxis Risk score (from Nsg)>0 risk: 2 SCD applied (from Nsg): Yes Pharmacological prophylaxis: heparin Lines/Catheters IV Catheter Type (from Nrsg): Peripheral IV Urinary Cath still in place: No Assessment/Plan Assessment/Plan Assessment: Upper abdominal pain with associated nausea/vomiting -MRCP- negative for choledocholithiasis -mild prominence of CBD Profoundly elevated LFTs on admission - improving -Hep A/B/C- negative -Auto-immune work-up negative Hyperbilirubinemia - trending up Hepatic steatosis 1.4 cm hypoechoic lesion within the right hepatic lobe -Ct with liver protocol - Benign hepatic hemangioma is identified Plan: In light of worsening symptoms and increasing bilirubin may need to proceed with ERCP tomorrow. NPO after midnight May need eventual cholecystectomy, surgery following. Trend LFTs and bilirubin - LFT's improving, bilirubin stable but slight increase Patient seen in collaboration with Dr. Cates Subjective/Free text: Course reviewed with nursing staff Patient interviewed and examined All labs, imaging and other results reviewed The patient resting in bed, discussed results of MRCP with the patient, discussed results of labs. LFTs are improving but bilirubin continues to trend up. No definite stones on MRCP but worsening symptoms and increasing bilirubin. If patient worsens clinically and LFTs increase will consider ERCP on Tuesday. 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 She is agreeable to proceed if necessary. She reports increased right upper quadrant abdominal pain last night associated with some nausea and vomiting. She is tolerating liquids and small amounts of full liquids. PHYSICAL EXAMINATION: GENERAL: Well developed, obese , well nourished, alert & oriented x 3, in no acute distress SKIN: No lesions HEAD: Normocephalic, atraumatic, no tenderness. EYES: Pupils equal reactive to light, no discharge. EARS/NOSE AND THROAT: Ears normal, nose normal. NECK: Supple, no masses. CHEST: Inspection within normal limits. CARDIOVASCULAR: Heart: Regular rate and rhythm RESPIRATORY: Lungs clear to auscultation GASTROINTESTINAL AND LIVER: Abdomen: Soft, right upper quadrant abdominal pain, worse to RUQ, non-distended, no hernias, no masses, no organomegaly, no rebound tenderness, normoactive bowel sounds. Rectal: Deferred. EXTREMITIES: No cyanosis, clubbing or edema. Result Diagram: 08/13/1820 08/13/18518 Results 24hrs Laboratory Tests Test 08/13/18 05:19 08/13/18 05:20 Sodium Level 137 Potassium Level 3.4 L Chloride Level 104 Carbon Dioxide Level 26 Anion Gap 7 Blood Urea Nitrogen 5 L Creatinine 0.67 Est Glomerular Filtrat Rate mL/min > 60 Glucose Level 154 Calcium Level 9.1 Magnesium Level 1.9 Total Bilirubin 2.2 H Direct Bilirubin 1.30 H Indirect Bilirubin 0.9 Aspartate Amino Transf (AST/SGOT) 258 H Alanine Aminotransferase (ALT/SGPT) 462 H Alkaline Phosphatase 178 H Total Protein 6.9 Albumin 3.9 Globulin 3.00 Albumin/Globulin Ratio 1.30 White Blood Count 14.2 #H Red Blood Count 4.61 Hemoglobin 12.9 Hematocrit 39.6 Mean Corpuscular Volume 85.9 Mean Corpuscular Hemoglobin 28.0 L Mean Corpuscular Hemoglobin Concent 32.6 Red Cell Distribution Width 13.9 Platelet Count 300 Mean Platelet Volume 11.0 H Immature Granulocytes % 0.400 Neutrophils % 87.3 H Lymphocytes % 7.9 L Monocytes % 4.1 Eosinophils % 0.1 Basophils % 0.2 Nucleated Red Blood Cells % 0.0 Immature Granulocytes # 0.060 H Neutrophils # 12.4 H Lymphocytes # 1.1 Monocytes # 0.6 Eosinophils # 0.0 Basophils # 0.0 Nucleated Red Blood Cells # 0.0 CC: ERIN CATES ; Exam/Review of Systems Exam Vitals Vital Signs Date Temp Pulse Resp B/P (MAP) Pulse Ox O2 O2 Flow FiO2 Time Delivery Rate 08/13/18 98.9 66 17 121/61 96 Room Air 08:19 (81) Intake and Output 08/12/18 08/12/18 08/13/18 1515:00 23:00 07:00 IntakeIntake Total 700 ml 825 ml 1320 ml BalanceBalance 700 ml 825 ml 1320 ml Results Results 24hrs Laboratory Tests Test 08/13/18 05:19 08/13/18 05:20 Sodium Level 137 Potassium Level 3.4 L Chloride Level 104 Carbon Dioxide Level 26 Anion Gap 7 Blood Urea Nitrogen 5 L Creatinine 0.67 Est Glomerular Filtrat Rate mL/min > 60 Glucose Level 154 Calcium Level 9.1 Magnesium Level 1.9 Total Bilirubin 2.2 H Direct Bilirubin 1.30 H Indirect Bilirubin 0.9 Aspartate Amino Transf (AST/SGOT) 258 H Alanine Aminotransferase (ALT/SGPT) 462 H Alkaline Phosphatase 178 H Total Protein 6.9 Albumin 3.9 Globulin 3.00 Albumin/Globulin Ratio 1.30 White Blood Count 14.2 #H Red Blood Count 4.61 Hemoglobin 12.9 Hematocrit 39.6 Mean Corpuscular Volume 85.9 Mean Corpuscular Hemoglobin 28.0 L Mean Corpuscular Hemoglobin Concent 32.6 Red Cell Distribution Width 13.9 Platelet Count 300 Mean Platelet Volume 11.0 H Immature Granulocytes % 0.400 Neutrophils % 87.3 H Lymphocytes % 7.9 L Monocytes % 4.1 Eosinophils % 0.1 Basophils % 0.2 Nucleated Red Blood Cells % 0.0 Immature Granulocytes # 0.060 H Neutrophils # 12.4 H Lymphocytes # 1.1 Monocytes # 0.6 Eosinophils # 0.0 Basophils # 0.0 Nucleated Red Blood Cells # 0.0 Medications Medication Current Medications Dextrose/Sodium Chloride 1,000 ml @ 75 mls/hr [id number] IV Last administered on 08/13/18at 04:21; Admin Dose 75 MLS/HR; Start 08/09/18 at 15:48 IV Flush (NS 3 ml) 3 ml PER PROTOCOL IV ; Start 08/09/18 at 16:00 Acetaminophen (Tylenol Tab) 650 mg Q6H PRN PO .PAIN 1-3 OR TEMP; Start 08/09/18 at 16:00 Famotidine (Pepcid Iv) 20 mg Q12 IV Last administered on 08/13/18at 08:31; Admin Dose 20 MG; Start 08/09/18 at 21:00 Ketorolac Tromethamine (Toradol) 15 mg Q6H PRN IV PAIN Last administered on 08/13/18at 10:32; Admin Dose 15 MG; Start 08/12/18 at 20:30; Stop 08/13/18 at 2 0:29 Ondansetron HCl (Zofran Inj) 4 mg Q4H PRN IV NAUSEA/VOMITING Last administered on 08/13/18at 14:25; Admin Dose 4 MG; Start 08/13/18 at 02:00 Hydromorphone HCl (Dilaudid) 1 mg Q3H PRN IV SEVERE PAIN LEVEL 7-10 Last administered on 08/13/18at 14:30; Admin Dose 1 MG; Start 08/13/18 at 05:00 Polyethylene Glycol (Miralax) 17 gm DAILY PRN PO CONSTIPATION; Start 08/13/18 at 11:00 Docusate Sodium (Colace) 100 mg BID PRN PO CONSTIPATION; Start 08/13/18 at 11:00 SCOOBY DIAZ NP August 13, 2018 14:54
[2018-08-13 20:00] VITALS: BP 113/59; PULSE 76; RESP 18
[2018-08-14 02:00] VITALS: BP 116/56; PULSE 68; RESP 18
[2018-08-14] MEDS: ONDANSETRON 4 MG INJ IV PRN ×2 (02:16→06:59)
[2018-08-14] MEDS: HYDROmorphONE 1 MG/ML SYG IV PRN ×4 (02:16→21:26)
[2018-08-14] MEDS: FAMOTIDINE 20 MG INJ IV SCH (08:34)
[2018-08-14 08:52] VITALS: BP 106/58; PULSE 79; RESP 18
[2018-08-14] MEDS: DEXTROSE 5%-0.45% NACL 1,000 ML IV SCH ×2 (09:27→23:17)
--- NOTE | 2018-08-14 10:46 | PN ---
Date/Time of Note Date/Time of Note DATE: 08/14/18 TIME: 10:41 Assessment/Plan VTE Prophylaxis Risk score (from Ns)>0 risk: 1 SCD applied (from Ns): Yes Pharmacological prophylaxis: NA/contraindicated Pharm contraindication: low risk/ambulating Lines/Catheters IV Catheter Type (from Nrsg): Peripheral IV Urinary Cath still in place: No Assessment/Plan Assessment/Plan 1. Acute right upper quadrant pain - patient still with moderate pain in RUQ and intolerance when palpated. nausea relieved with Zofran - Plans for ERCP today but bilirubin normalized. Will touch base with GI regarding plans - LFT still elevated but trending downward - MRCP negative for choledocholithiasis - initial US showed contracted GB and ?porcelain GB but not documented - General surgery consultation appreciated. 2. Leukocytosis - will start on Zosyn and monitor for improvement in WBC 3. Symptomatic cholelithiasis - Gen Surgery on board and appreciate recommendations. will need eventual cholecystectomy given persistent pain and nausea 4. Disposition - Plans for ERCP today but will need to touch base with GI regarding plan. Patient will most likely need cholecystectomy prior to d/c given persistent RUQ pain and nausea with PO intolerance. Result Diagram: 08/14/18 0454 08/14/18 0454 Results 24hrs Laboratory Tests Test 08/14/18 04:54 White Blood Count 15.9 H Red Blood Count 4.37 Hemoglobin 12.2 Hematocrit 37.7 Mean Corpuscular Volume 86.3 Mean Corpuscular Hemoglobin 27.9 L Mean Corpuscular Hemoglobin Concent 32.4 Red Cell Distribution Width 14.2 Platelet Count 265 Mean Platelet Volume 11.3 H Immature Granulocytes % 0.400 Neutrophils % 83.9 H Lymphocytes % 9.6 L Monocytes % 5.6 Eosinophils % 0.3 Basophils % 0.2 Nucleated Red Blood Cells % 0.0 Immature Granulocytes # 0.060 H Neutrophils # 13.3 H Lymphocytes # 1.5 Monocytes # 0.9 Eosinophils # 0.1 Basophils # 0.0 Nucleated Red Blood Cells # 0.0 Sodium Level 138 Potassium Level 3.7 Chloride Level 103 Carbon Dioxide Level 27 Anion Gap 8 Blood Urea Nitrogen 5 L Creatinine 0.60 Est Glomerular Filtrat Rate mL/min > 60 Glucose Level 111 # Calcium Level 8.9 Magnesium Level 1.9 Total Bilirubin 1.0 Direct Bilirubin 0.00 # Indirect Bilirubin 1.0 Aspartate Amino Transf (AST/SGOT) 146 H Alanine Aminotransferase (ALT/SGPT) 339 H Alkaline Phosphatase 181 H Total Protein 6.9 Albumin 3.7 Globulin 3.20 Albumin/Globulin Ratio 1.15 Subjective 24 Hr Interval Summary Free Text/Dictation Patient still with pain in RUQ and nausea relieved with Zofran. Jumped when right upper quadrant palpated lightly. No acute overnight events. Exam/Review of Systems Exam Vitals Vital Signs Date Temp Pulse Resp B/P (MAP) Pulse Ox O2 O2 Flow FiO2 Time Delivery Rate 08/14/18 99.1 79 18 106/58 95 08:52 (74) 08/13/18 Room Air 14:00 Intake and Output 08/13/18 08/13/18 08/14/18 1414:59 22:59 06:59 IntakeIntake Total 100 ml 1067.5 ml 1230 ml BalanceBalance 100 ml 1067.5 ml 1230 ml Exam General: no acute distress. answering questions appropriately Respiratory: Clear to auscultation bilaterally. no wheezing or rhonchi Cardiovascular: S1, S2, regular rate and rhythm, no obvious murmurs Gastrointestinal: soft, tenderness to palpation RUQ, +Carmen sign, nondistended, bowel sounds heard. Ext: no edema, cyanosis or clubbing Skin: no rashes or lesions appreciated Results Results 24hrs Laboratory Tests Test 08/14/18 04:54 White Blood Count 15.9 H Red Blood Count 4.37 Hemoglobin 12.2 Hematocrit 37.7 Mean Corpuscular Volume 86.3 Mean Corpuscular Hemoglobin 27.9 L Mean Corpuscular Hemoglobin Concent 32.4 Red Cell Distribution Width 14.2 Platelet Count 265 Mean Platelet Volume 11.3 H Immature Granulocytes % 0.400 Neutrophils % 83.9 H Lymphocytes % 9.6 L Monocytes % 5.6 Eosinophils % 0.3 Basophils % 0.2 Nucleated Red Blood Cells % 0.0 Immature Granulocytes # 0.060 H Neutrophils # 13.3 H Lymphocytes # 1.5 Monocytes # 0.9 Eosinophils # 0.1 Basophils # 0.0 Nucleated Red Blood Cells # 0.0 Sodium Level 138 Potassium Level 3.7 Chloride Level 103 Carbon Dioxide Level 27 Anion Gap 8 Blood Urea Nitrogen 5 L Creatinine 0.60 Est Glomerular Filtrat Rate mL/min > 60 Glucose Level 111 # Calcium Level 8.9 Magnesium Level 1.9 Total Bilirubin 1.0 Direct Bilirubin 0.00 # Indirect Bilirubin 1.0 Aspartate Amino Transf (AST/SGOT) 146 H Alanine Aminotransferase (ALT/SGPT) 339 H Alkaline Phosphatase 181 H Total Protein 6.9 Albumin 3.7 Globulin 3.20 Albumin/Globulin Ratio 1.15 Medications Medication Current Medications Dextrose/Sodium Chloride 1,000 ml @ 75 mls/hr [id number] IV Last administered on 08/14/18 09:27; Admin Dose 75 MLS/HR; Start 08/09/18 at 15:48 IV Flush (NS 3 ml) 3 ml PER PROTOCOL IV ; Start 08/09/18 at 16:00 Acetaminophen (Tylenol Tab) 650 mg Q6H PRN PO .PAIN 1-3 OR TEMP; Start 08/09/18 at 16:00 Famotidine (Pepcid Iv) 20 mg Q12 IV Last administered on 08/14/18at 08:34; Admin Dose 20 MG; Start 08/09/18 at 21:00 Ondansetron HCl (Zofran Inj) 4 mg Q4H PRN IV NAUSEA/VOMITING Last administered on 08/14/18 06:59; Admin Dose 4 MG; Start 08/13/18 at 02:00 Hydromorphone HCl (Dilaudid) 1 mg Q3H PRN IV SEVERE PAIN LEVEL 7-10 Last administered on 08/14/18 06:59; Admin Dose 1 MG; Start 08/13/18 at 05:00 Polyethylene Glycol (Miralax) 17 gm DAILY PRN PO CONSTIPATION Last administered on 08/14/18at 07:00; Admin Dose 17 GM; Start 08/13/18 at 11:00 Docusate Sodium (Colace) 100 mg BID PRN PO CONSTIPATION; Start 08/13/18 at 11:00 AMANDA MILAN MD August 14, 2018 10:46
[2018-08-14] MEDS: PIPER-TAZO 3.375 GM IV (PMX) 100 ML IVPB SCH ×2 (10:56→21:28)
--- NOTE | 2018-08-14 13:36 | PN ---
Date/Time of Note Date/Time of Note DATE: 08/14/18 TIME: 13:33 Assessment/Plan Lines/Catheters IV Catheter Type (from [facility]): Peripheral IV Juarez in Place (from [facility]): No Assessment/Plan Chief Complaint/Hosp Course 1. Abdominal pain 2. Transaminitis w hyperbilirubinemia (improved today) 3. Dilated common bile duct with ? choledocholithiasis (despite negative mrcp) 4. Steatosis w +Hep AB -GI for ERCP today -Eventual cholecystectomy -Pain control -Encourage weight optimization -abx 5. BMI 33 -Nutrition and exercise optimization 6. Leukocytosis ? 2nd above -as above Thank you Subjective 24 Hr Interval Summary WBC elevated. LFTs improving. RUQ and epigastric pain persist. Min nausea. No chills, sob, congested cough, cp, palpitations, sanchez, dizziness, dysuria. Exam/Review of Systems Vital Signs Vitals Vital Signs Date Temp Pulse Resp B/P (MAP) Pulse Ox O2 O2 Flow FiO2 Time Delivery Rate 08/14/18 99.1 79 18 106/58 95 08:52 (74) 08/13/18 Room Air 14:00 Intake and Output 08/13/18 08/13/18 08/14/18 1515:00 23:00 07:00 IntakeIntake Total 100 ml 1067.5 ml 1230 ml BalanceBalance 100 ml 1067.5 ml 1230 ml Exam Free Text/Dictation Constitutional: alert, oriented, obese; No distress Psych: nl mood/affect; No anxiety Head: normocephalic, atraumatic Eyes: nl conjunctiva, EOMI, PERRL; No icteric ENMT: nl external ears & nose, mucosa pink and moist Neck: supple, non-tender; No jvd Respiratory: normal air movement; No congested cough, No labored breathing Cardiovascular: regular rate and rhythm; No edema Gastrointestinal: soft, tender (ruq & epigastric. Negative Meredith's); No distended, No rebound or guarding Musculoskeletal: nl extremities to inspection, nl gait and stance; No joint tenderness Extremities: normal pulses; No calf tenderness, No edema Neurological: nl mental status, nl speech, nl strength Skin: nl turgor; No rash or lesions, No diaphoresis Lymph: nl lymph nodes Results Result Diagram: 08/14/18 0454 08/14/18 0454 BRICE VALENZUELA MD August 14, 2018 13:36
[2018-08-14 15:08] VITALS: BP 114/53; PULSE 82; RESP 18
--- NOTE | 2018-08-14 16:38 | PN ---
Date/Time of Note Date/Time of Note DATE: 08/14/18 TIME: 15:56 Assessment/Plan VTE Prophylaxis Risk score (from Nsg)>0 risk: 1 SCD applied (from Nsg): Yes Pharmacological prophylaxis: other (scds) Lines/Catheters IV Catheter Type (from Nrsg): Peripheral IV Urinary Cath still in place: No Assessment/Plan Hospital Course Assessment: Upper abdominal pain with associated nausea/vomiting -MRCP- negative for choledocholithiasis -mild prominence of CBD Profoundly elevated LFTs on admission - improving -Hep A/B/C- negative -Auto-immune work-up negative Hyperbilirubinemia - resolved Hepatic steatosis 1.4 cm hypoechoic lesion within the right hepatic lobe -Ct with liver protocol - Benign hepatic hemangioma is identified Plan: ERCP scheduled today- canceled by Dr. Rebollar as LFTs have improved with resolution of hyperbilirubinemia Per Dr. Rebollar- monitor LFTs, if LFTS and abd pain improve ok to d/c in am per Dr. Rebollar Will change H2 pradeep to PPI- and Carafate Patient seen in collaboration with Dr. Rebollar/Rico Subjective/Free text: Course reviewed with nursing staff Patient interviewed and examined All labs, imaging and other results reviewed Discussed with patient reasons for canceling ERCP per Dr. Rebollar Pt continues to c/o epigastric/RUQ pain- plan to add PPI/Carafate and advance diet as tolerated. Used frame table operator to discuss plan and answer all questions. PHYSICAL EXAMINATION: GENERAL: Well developed, obese , well nourished, alert & oriented x 3, in no acute distress SKIN: No lesions HEAD: Normocephalic, atraumatic, no tenderness. EYES: Pupils equal reactive to light, no discharge. EARS/NOSE AND THROAT: Ears normal, nose normal. NECK: Supple, no masses. CHEST: Inspection within normal limits. CARDIOVASCULAR: Heart: Regular rate and rhythm RESPIRATORY: Lungs clear to auscultation GASTROINTESTINAL AND LIVER: Abdomen: Soft, right upper quadrant abdominal pain/epigastric abd pain, non-distended, no hernias, no masses, no organomegaly, no rebound tenderness, normoactive bowel sounds. Rectal: Deferred. EXTREMITIES: No cyanosis, clubbing or edema. Result Diagram: 08/14/18 0454 08/14/18 0454 Results 24hrs Laboratory Tests Test 08/14/18 04:54 White Blood Count 15.9 H Red Blood Count 4.37 Hemoglobin 12.2 Hematocrit 37.7 Mean Corpuscular Volume 86.3 Mean Corpuscular Hemoglobin 27.9 L Mean Corpuscular Hemoglobin Concent 32.4 Red Cell Distribution Width 14.2 Platelet Count 265 Mean Platelet Volume 11.3 H Immature Granulocytes % 0.400 Neutrophils % 83.9 H Lymphocytes % 9.6 L Monocytes % 5.6 Eosinophils % 0.3 Basophils % 0.2 Nucleated Red Blood Cells % 0.0 Immature Granulocytes # 0.060 H Neutrophils # 13.3 H Lymphocytes # 1.5 Monocytes # 0.9 Eosinophils # 0.1 Basophils # 0.0 Nucleated Red Blood Cells # 0.0 Sodium Level 138 Potassium Level 3.7 Chloride Level 103 Carbon Dioxide Level 27 Anion Gap 8 Blood Urea Nitrogen 5 L Creatinine 0.60 Est Glomerular Filtrat Rate mL/min > 60 Glucose Level 111 # Calcium Level 8.9 Magnesium Level 1.9 Total Bilirubin 1.0 Direct Bilirubin 0.00 # Indirect Bilirubin 1.0 Aspartate Amino Transf (AST/SGOT) 146 H Alanine Aminotransferase (ALT/SGPT) 339 H Alkaline Phosphatase 181 H Total Protein 6.9 Albumin 3.7 Globulin 3.20 Albumin/Globulin Ratio 1.15 Exam/Review of Systems Exam Vitals Vital Signs Date Temp Pulse Resp B/P (MAP) Pulse Ox O2 O2 Flow FiO2 Time Delivery Rate 08/14/18 98.1 82 18 114/53 96 15:08 (73) 08/13/18 Room Air 14:00 Intake and Output 08/13/18 08/13/18 08/14/18 1515:00 23:00 07:00 IntakeIntake Total 100 ml 1067.5 ml 1230 ml BalanceBalance 100 ml 1067.5 ml 1230 ml Results Results 24hrs Laboratory Tests Test 08/14/18 04:54 White Blood Count 15.9 H Red Blood Count 4.37 Hemoglobin 12.2 Hematocrit 37.7 Mean Corpuscular Volume 86.3 Mean Corpuscular Hemoglobin 27.9 L Mean Corpuscular Hemoglobin Concent 32.4 Red Cell Distribution Width 14.2 Platelet Count 265 Mean Platelet Volume 11.3 H Immature Granulocytes % 0.400 Neutrophils % 83.9 H Lymphocytes % 9.6 L Monocytes % 5.6 Eosinophils % 0.3 Basophils % 0.2 Nucleated Red Blood Cells % 0.0 Immature Granulocytes # 0.060 H Neutrophils # 13.3 H Lymphocytes # 1.5 Monocytes # 0.9 Eosinophils # 0.1 Basophils # 0.0 Nucleated Red Blood Cells # 0.0 Sodium Level 138 Potassium Level 3.7 Chloride Level 103 Carbon Dioxide Level 27 Anion Gap 8 Blood Urea Nitrogen 5 L Creatinine 0.60 Est Glomerular Filtrat Rate mL/min > 60 Glucose Level 111 # Calcium Level 8.9 Magnesium Level 1.9 Total Bilirubin 1.0 Direct Bilirubin 0.00 # Indirect Bilirubin 1.0 Aspartate Amino Transf (AST/SGOT) 146 H Alanine Aminotransferase (ALT/SGPT) 339 H Alkaline Phosphatase 181 H Total Protein 6.9 Albumin 3.7 Globulin 3.20 Albumin/Globulin Ratio 1.15 Medications Medication Current Medications Dextrose/Sodium Chloride 1,000 ml @ 75 mls/hr [id number] IV Last administered on 08/14/18 09:27; Admin Dose 75 MLS/HR; Start 08/09/18 at 15:48 IV Flush (NS 3 ml) 3 ml PER PROTOCOL IV ; Start 08/09/18 at 16:00 Acetaminophen (Tylenol Tab) 650 mg Q6H PRN PO .PAIN 1-3 OR TEMP; Start 08/09/18 at 16:00 Famotidine (Pepcid Iv) 20 mg Q12 IV Last administered on 08/14/18 08:34; Admin Dose 20 MG; Start 08/09/18 at 21:00 Ondansetron HCl (Zofran Inj) 4 mg Q4H PRN IV NAUSEA/VOMITING Last administered on 08/14/18at 06:59; Admin Dose 4 MG; Start 08/13/18 at 02:00 Hydromorphone HCl (Dilaudid) 1 mg Q3H PRN IV SEVERE PAIN LEVEL 7-10 Last administered on 08/14/18at 12:40; Admin Dose 1 MG; Start 08/13/18 at 05:00 Polyethylene Glycol (Miralax) 17 gm DAILY PRN PO CONSTIPATION Last administered on 08/14/18 07:00; Admin Dose 17 GM; Start 08/13/18 at 11:00 Docusate Sodium (Colace) 100 mg BID PRN PO CONSTIPATION; Start 08/13/18 at 11:00 Piperacillin Sod/ Tazobactam Sod 100 ml @ 200 mls/hr Q8 IVPB Last administered on 08/14/18at 10:56; Admin Dose 200 MLS/HR; Start 08/14/18 at 11:00 BILL APONTE August 14, 2018 16:06
[2018-08-14] MEDS ORDERED: SUCRALFATE (100 MG/ML) 10ML CUP PO SCH (17:00)
[2018-08-14] MEDS: PANTOPRAZOLE (EC) 40 MG TAB PO SCH (17:13)
[2018-08-14 19:35] VITALS: BP 132/62; PULSE 94; RESP 18
[2018-08-14] MEDS: SUCRALFATE (100 MG/ML) 10ML CUP PO SCH (23:16)
[2018-08-15 02:07] VITALS: BP 98/58; PULSE 78; RESP 20
[2018-08-15] MEDS: PANTOPRAZOLE (EC) 40 MG TAB PO SCH ×2 (05:37→18:00)
[2018-08-15] MEDS: PIPER-TAZO 3.375 GM IV (PMX) 100 ML IVPB SCH ×3 (05:37→18:44)
[2018-08-15] MEDS: SUCRALFATE (100 MG/ML) 10ML CUP PO SCH ×4 (05:37→21:12)
[2018-08-15 07:52] VITALS: BP 100/51; PULSE 82; RESP 16
[2018-08-15] MEDS: HYDROmorphONE 1 MG/ML SYG IV PRN ×3 (08:46→23:43)
--- NOTE | 2018-08-15 11:33 | PN ---
Date/Time of Note Date/Time of Note DATE: 08/15/18 TIME: 11:28 Assessment/Plan Lines/Catheters IV Catheter Type (from [facility]): Peripheral IV Juarez in Place (from [facility]): No Assessment/Plan Chief Complaint/Hosp Course 1. Abdominal pain 2. Transaminitis w hyperbilirubinemia (improved today) 3. Dilated common bile duct with ? choledocholithiasis (despite negative mrcp) 4. Steatosis w +Hep AB -ERCP was not done 2/2 improving labs, however pt continues to have significant pain -All imaging do not show cholecysitis however since increase in wbc, cholecystitis is possible> HIDA pending: if positive > lap thang -Pain control -Encourage weight optimization -abx 5. BMI 33 -Nutrition and exercise optimization 6. Leukocytosis ? 2nd above -as above -trend Thank you. Patient seen and examined in collaboration with Dr. Ryan Clark. Subjective 24 Hr Interval Summary Abdominal pain persistent. Min temp. No chills, sob, congested cough, cp, palpitations, sanchez, dizziness, n/v/d/dysuria. Exam/Review of Systems Vital Signs Vitals Vital Signs Date Temp Pulse Resp B/P (MAP) Pulse Ox O2 O2 Flow FiO2 Time Delivery Rate 08/15/18 99.1 84 16 102/54 98 14:44 (70) 08/13/18 Room Air 14:00 Intake and Output 08/14/18 08/14/18 08/15/18 1515:00 23:00 07:00 IntakeIntake Total 805 ml 840 ml 1890 ml BalanceBalance 805 ml 840 ml 1890 ml Exam Free Text/Dictation Constitutional: alert, oriented, obese; No distress Psych: nl mood/affect; No anxiety Head: normocephalic, atraumatic Eyes: nl conjunctiva, EOMI, PERRL; No icteric ENMT: nl external ears & nose, mucosa pink and moist Neck: supple, non-tender; No jvd Respiratory: normal air movement; No congested cough, No labored breathing Cardiovascular: regular rate and rhythm; No edema Gastrointestinal: soft, tender (ruq & epigastric); No distended, No rebound or guarding Musculoskeletal: nl extremities to inspection, nl gait and stance; No joint tenderness Extremities: normal pulses; No calf tenderness, No edema Neurological: nl mental status, nl speech, nl strength Skin: nl turgor; No rash or lesions, No diaphoresis Lymph: nl lymph nodes Results Result Diagram: 08/15/18 0627 08/15/18 0627 MAAME BARCENAS NP August 15, 2018 11:33
--- NOTE | 2018-08-15 13:09 | PN ---
Date/Time of Note Date/Time of Note DATE: 08/15/18 TIME: 13:08 Assessment/Plan VTE Prophylaxis Risk score (from Nsg)>0 risk: 3 SCD applied (from Nsg): Yes Pharmacological prophylaxis: other (scds) Lines/Catheters IV Catheter Type (from Nrsg): Peripheral IV Urinary Cath still in place: No Assessment/Plan Hospital Course Assessment: Upper abdominal pain with associated nausea/vomiting -MRCP- negative for choledocholithiasis -mild prominence of CBD Profoundly elevated LFTs on admission - improving -Hep A/B/C- negative -Auto-immune work-up negative Hyperbilirubinemia - resolved Hepatic steatosis 1.4 cm hypoechoic lesion within the right hepatic lobe -Ct with liver protocol - Benign hepatic hemangioma is identified Leukocytosis and fever noted 08/14 Plan: LFTs continues to improve- no indication for ERCP, pt continues to have epigastric/RUQ pain- will order HIDA scan to further assess Thus far since change in medication (PPI- and Carafate) no significant change in epigastric/RUQ pain continue to monitor labs- further recommendations based on clinical course Patient seen in collaboration with Dr. Gómez Subjective/Free text: Course reviewed with nursing staff Patient interviewed and examined All labs, imaging and other results reviewed pt resting in bed, at bedside. Pt continues to c/u upper abd pain. Only able to advance diet to full liquid Discussed plan for HIDA scan today, pt verbalized understanding PHYSICAL EXAMINATION: GENERAL: Well developed, obese , well nourished, alert & oriented x 3, in no acute distress SKIN: No lesions HEAD: Normocephalic, atraumatic, no tenderness. EYES: Pupils equal reactive to light, no discharge. EARS/NOSE AND THROAT: Ears normal, nose normal. NECK: Supple, no masses. CHEST: Inspection within normal limits. CARDIOVASCULAR: Heart: Regular rate and rhythm RESPIRATORY: Lungs clear to auscultation GASTROINTESTINAL AND LIVER: Abdomen: Soft, right upper quadrant abdominal pain/epigastric abd pain, non-distended, no hernias, no masses, no organomegaly, no rebound tenderness, normoactive bowel sounds. Rectal: Deferred. EXTREMITIES: No cyanosis, clubbing or edema. Result Diagram: 08/15/1827 08/15/18626 Results 24hrs Laboratory Tests Test 08/15/18 06:27 White Blood Count 16.8 H Red Blood Count 4.18 L Hemoglobin 11.6 L Hematocrit 36.1 L Mean Corpuscular Volume 86.4 Mean Corpuscular Hemoglobin 27.8 L Mean Corpuscular Hemoglobin Concent 32.1 Red Cell Distribution Width 14.2 Platelet Count 251 Mean Platelet Volume 11.1 H Immature Granulocytes % 0.500 H Neutrophils % 81.0 H Lymphocytes % 10.3 L Monocytes % 7.6 Eosinophils % 0.4 Basophils % 0.2 Nucleated Red Blood Cells % 0.0 Immature Granulocytes # 0.090 H Neutrophils # 13.6 H Lymphocytes # 1.7 Monocytes # 1.3 H Eosinophils # 0.1 Basophils # 0.0 Nucleated Red Blood Cells # 0.0 Sodium Level 138 Potassium Level 3.3 L Chloride Level 103 Carbon Dioxide Level 28 Anion Gap 7 Blood Urea Nitrogen 4 L Creatinine 0.63 Est Glomerular Filtrat Rate mL/min > 60 Glucose Level 106 Calcium Level 8.5 Magnesium Level 2.0 Total Bilirubin 0.9 Direct Bilirubin 0.00 Indirect Bilirubin 0.9 Aspartate Amino Transf (AST/SGOT) 66 H Alanine Aminotransferase (ALT/SGPT) 217 H Alkaline Phosphatase 151 H Total Protein 6.9 Albumin 3.5 Globulin 3.40 H Albumin/Globulin Ratio 1.02 Exam/Review of Systems Exam Vitals Vital Signs Date Temp Pulse Resp B/P (MAP) Pulse Ox O2 O2 Flow FiO2 Time Delivery Rate 08/15/18 99.1 82 16 100/51 97 07:52 (67) 08/13/18 Room Air 14:00 Intake and Output 08/14/18 08/14/18 08/15/18 1515:00 23:00 07:00 IntakeIntake Total 805 ml 840 ml 1890 ml BalanceBalance 805 ml 840 ml 1890 ml Results Results 24hrs Laboratory Tests Test 08/15/18 06:27 White Blood Count 16.8 H Red Blood Count 4.18 L Hemoglobin 11.6 L Hematocrit 36.1 L Mean Corpuscular Volume 86.4 Mean Corpuscular Hemoglobin 27.8 L Mean Corpuscular Hemoglobin Concent 32.1 Red Cell Distribution Width 14.2 Platelet Count 251 Mean Platelet Volume 11.1 H Immature Granulocytes % 0.500 H Neutrophils % 81.0 H Lymphocytes % 10.3 L Monocytes % 7.6 Eosinophils % 0.4 Basophils % 0.2 Nucleated Red Blood Cells % 0.0 Immature Granulocytes # 0.090 H Neutrophils # 13.6 H Lymphocytes # 1.7 Monocytes # 1.3 H Eosinophils # 0.1 Basophils # 0.0 Nucleated Red Blood Cells # 0.0 Sodium Level 138 Potassium Level 3.3 L Chloride Level 103 Carbon Dioxide Level 28 Anion Gap 7 Blood Urea Nitrogen 4 L Creatinine 0.63 Est Glomerular Filtrat Rate mL/min > 60 Glucose Level 106 Calcium Level 8.5 Magnesium Level 2.0 Total Bilirubin 0.9 Direct Bilirubin 0.00 Indirect Bilirubin 0.9 Aspartate Amino Transf (AST/SGOT) 66 H Alanine Aminotransferase (ALT/SGPT) 217 H Alkaline Phosphatase 151 H Total Protein 6.9 Albumin 3.5 Globulin 3.40 H Albumin/Globulin Ratio 1.02 Medications Medication Current Medications IV Flush (NS 3 ml) 3 ml PER PROTOCOL IV ; Start 08/09/18 at 16:00 Acetaminophen (Tylenol Tab) 650 mg Q6H PRN PO .PAIN 1-3 OR TEMP; Start 08/09/18 at 16:00 Ondansetron HCl (Zofran Inj) 4 mg Q4H PRN IV NAUSEA/VOMITING Last administered on 08/14/18at 06:59; Admin Dose 4 MG; Start 08/13/18 at 02:00 Hydromorphone HCl (Dilaudid) 1 mg Q3H PRN IV SEVERE PAIN LEVEL 7-10 Last administered on 08/15/18at 08:46; Admin Dose 1 MG; Start 08/13/18 at 05:00 Polyethylene Glycol (Miralax) 17 gm DAILY PRN PO CONSTIPATION Last administered on 08/14/18at 07:00; Admin Dose 17 GM; Start 08/13/18 at 11:00 Docusate Sodium (Colace) 100 mg BID PRN PO CONSTIPATION; Start 08/13/18 at 11:00 Piperacillin Sod/ Tazobactam Sod 100 ml @ 200 mls/hr Q8 IVPB Last administered on 08/15/18at 05:37; Admin Dose 200 MLS/HR; Start 08/14/18 at 11:00 Pantoprazole (Protonix Tab) 40 mg BID@06,18 PO Last administered on 08/15/18at 05:37; Admin Dose 40 MG; Start 08/14/18 at 18:00 Sucralfate (Carafate Susp) 1 gm QID PO Last administered on 08/15/18at 05:37; Admin Dose 1 GM; Start 08/15/18 at 00:00 BILL APONTE August 15, 2018 13:09
[2018-08-15] MEDS ORDERED: POTASSIUM CHLORIDE 20 MEQ POWDER FOR ORAL SOLN PO ONE (14:00)
[2018-08-15 14:44] VITALS: BP 102/54; PULSE 84; RESP 16
--- NOTE | 2018-08-15 16:06 | PN ---
Date/Time of Note Date/Time of Note DATE: 08/15/18 TIME: 16:06 Objective Vitals Vital Signs Date Temp Pulse Resp B/P (MAP) Pulse Ox O2 O2 Flow FiO2 Time Delivery Rate 08/15/18 99.1 84 16 102/54 98 14:44 (70) 08/13/18 Room Air 14:00 Intake and Output 08/14/18 08/14/18 08/15/18 1515:00 23:00 07:00 IntakeIntake Total 805 ml 840 ml 1890 ml BalanceBalance 805 ml 840 ml 1890 ml Results Result Diagram: 08/15/1862608/15/18626 Medications Medications Current Medications IV Flush (NS 3 ml) 3 ml PER PROTOCOL IV ; Start 08/09/18 at 16:00 Acetaminophen (Tylenol Tab) 650 mg Q6H PRN PO .PAIN 1-3 OR TEMP; Start 08/09/18 at 16:00 Ondansetron HCl (Zofran Inj) 4 mg Q4H PRN IV NAUSEA/VOMITING Last administered on 08/14/18at 06:59; Admin Dose 4 MG; Start 08/13/18 at 02:00 Hydromorphone HCl (Dilaudid) 1 mg Q3H PRN IV SEVERE PAIN LEVEL 7-10 Last administered on 08/15/18at 08:46; Admin Dose 1 MG; Start 08/13/18 at 05:00 Polyethylene Glycol (Miralax) 17 gm DAILY PRN PO CONSTIPATION Last administered on 08/14/18at 07:00; Admin Dose 17 GM; Start 08/13/18 at 11:00 Docusate Sodium (Colace) 100 mg BID PRN PO CONSTIPATION; Start 08/13/18 at 11:00 Piperacillin Sod/ Tazobactam Sod 100 ml @ 200 mls/hr Q8 IVPB Last administered on 08/15/18at 13:37; Admin Dose 200 MLS/HR; Start 08/14/18 at 11:00 Pantoprazole (Protonix Tab) 40 mg BID@06,18 PO Last administered on 08/15/18at 05:37; Admin Dose 40 MG; Start 08/14/18 at 18:00 Sucralfate (Carafate Susp) 1 gm QID PO Last administered on 08/15/18 05:37; A dmin Dose 1 GM; Start 08/15/18 at 00:00 Sodium Chloride 1,000 ml @ 50 mls/hr Q20H IV ; Start 08/15/18 at 16:00; Status UNV VTE Prophylaxis Risk score (from [facility] [place])>0 risk: 3 SCD applied (from [facility] [place]): Yes Lines/Catheters IV Catheter Type: Juarez in Place: No Assessment/Plan Hospital Course Subjective Still with abdominal pain Objective Physical exam General: Patient is laying in bed and answers questions appropriately Mentation: Patient is alert and oriented 4, Head: Normocephalic atraumatic Eyes: EOMI, pupils reactive to light Neck: Supple, nontender, midline Respiratory: Clear to auscultation bilaterally Cardiovascular: regular rate, no obvious murmurs Gastrointestinal:epigastric area tender to palpation, bowel sounds heard. Neurological: Moves all extremities spontaneously Skin: No new skin lesions Assessment/Plan 1. Acute right upper quadrant/epigastric pain - patient still with moderate pain in RUQ and intolerance when palpated. nausea relieved with Zofran -ERCP canceled per GI due to resolving bilirubin and liver values - LFT still elevated but trending downward - MRCP negative for choledocholithiasis - initial US showed contracted GB and ?porcelain GB but not documented - General surgery consultation appreciated. -HIDA pending 2. Leukocytosis - cont on abx and monitor for improvement in WBC, mild worsening today 3. Symptomatic cholelithiasis - Gen Surgery on board and appreciate recommendations. will need eventual cholecystectomy given persistent pain and nausea 4. Disposition -Pending HIDA scan, will need to touch base with both GI and general surgery for eventual plans given persistent symptomatic issues. MARTHA RAMÍREZ August 15, 2018 16:06
[2018-08-15] MEDS: SOD CHLORIDE 0.45% 1,000 ML IV SCH (16:11)
[2018-08-15] MEDS ORDERED: VANCOMYCIN IV PER PHARMACY XX SCH (16:30)
[2018-08-15] MEDS ORDERED: VANCOMYCIN 1 GM 250 ML IVPB ONE (17:00)
[2018-08-15 19:28] VITALS: BP 100/54; PULSE 77; RESP 18
[2018-08-15] MEDS ORDERED: VANCOMYCIN HCL 1.5 GM in SOD CHLORIDE 0.9% 250 ML IVPB SCH (21:00)
[2018-08-16] VITALS (14 sets, daily range): BP systolic 92–125; BP diastolic 51–76; PULSE 70–90; RESP 15–21
[2018-08-16] MEDS: PIPER-TAZO 3.375 GM IV (PMX) 100 ML IVPB SCH ×5 (00:28→23:47)
[2018-08-16] MEDS: HYDROmorphONE 1 MG/ML SYG IV PRN ×5 (05:00→23:48)
[2018-08-16] MEDS: PANTOPRAZOLE (EC) 40 MG TAB PO SCH ×2 (05:33→18:00)
--- NOTE | 2018-08-16 08:28 | PREAC ---
Date/Time of Note Date/Time of Note DATE: 08/16/18 TIME: : Anesthesia Eval and Record Evaluation Time Pre-Procedure Interview DATE: 08/16/18 TIME: 08: Age 42 Sex female NPO: 8 hrs Preoperative diagnosis cholecystitis/choledocholithiasis Planned procedure Laparoscopic cholecystectomy Past Medical History Past Medical History: Includes GI: Obesity Surgery & Anesthesia Issues No known issue ( x1) Meds Anticoagulation: No Beta Karson within 24 hr: No Reason Beta Karson not given: Pt. not on B-Karson Current Medications IV Flush (NS 3 ml) 3 ml PER PROTOCOL IV ; Start 08/09/18 at 16:00 Acetaminophen (Tylenol Tab) 650 mg Q6H PRN PO .PAIN 1-3 OR TEMP; Start 08/09/18 at 16:00 Ondansetron HCl (Zofran Inj) 4 mg Q4H PRN IV NAUSEA/VOMITING Last administered on 08/14/18at 06:59; Admin Dose 4 MG; Start 08/13/18 at 02:00 Hydromorphone HCl (Dilaudid) 1 mg Q3H PRN IV SEVERE PAIN LEVEL 7-10 Last administered on 08/16/18 08:02; Admin Dose 1 MG; Start 08/13/18 at 05:00 Polyethylene Glycol (Miralax) 17 gm DAILY PRN PO CONSTIPATION Last administered on 08/14/18at 07:00; Admin Dose 17 GM; Start 08/13/18 at 11:00 Docusate Sodium (Colace) 100 mg BID PRN PO CONSTIPATION; Start 08/13/18 at 11:00 Pantoprazole (Protonix Tab) 40 mg BID@06,18 PO Last administered on 08/15/18at 05:37; Admin Dose 40 MG; Start 08/14/18 at 18:00 Sucralfate (Carafate Susp) 1 gm QID PO Last administered on 08/15/18at 21:12; Admin Dose 1 GM; Start 08/15/18 at 00:00 Sodium Chloride 1,000 ml @ 50 mls/hr Q20H IV Last administered on 08/15/18at 16:11; Admin Dose 50 MLS/HR; Start 08/15/18 at 16:00 Piperacillin Sod/ Tazobactam Sod 100 ml @ 200 mls/hr Q6 IVPB Last administered on 5/22/19at 05:29; Admin Dose 200 MLS/HR; Start 08/15/18 at 18:00 Vancomycin HCl (Vanco Iv Per Pharmacy) VANCOMYCIN PER PHARMACY PER PROTOCOL XX ; Start 08/15/18 at 16:30 Vancomycin/Sodium Chloride 250 ml @ 125 mls/hr Q12H IVPB ; Start 08/16/18 at 09:00 Meds reviewed: Yes Allergies Coded Allergies: No Known Allergy (Unverified , 08/09/18) Allergies Reviewed: Yes Labs/Studies Labs Reviewed: Reviewed by anesthesiologist Result Diagram: 08/16/18 0633 08/16/18 0633 Laboratory Tests 08/16/18 06:33 test: Negative Pre-procedure Exam Last vitals Vital Signs Date Temp Pulse Resp B/P (MAP) Pulse Ox O2 O2 Flow FiO2 Time Delivery Rate 08/16/18 98.7 72 17 102/61 97 Room Air 08:00 (75) Airway: Adequate mouth opening, Adequate thyromental dist Mallampati: Mallampati II Teeth: Normal Lung: Normal Heart: Normal ASA Physical Status ASA physical status: 2 Emergency: None Planned Anesthetic General/MAC: ETT Planned Pain Management Single shot nerve block (consented for TAP block) Pre-operative Attestations Prior to commencing anesthesia and surgery, the patient was re-evaluated, there was verification of: *The patient's identity *The results of appropriate recent lab work and preoperative vital signs *The above evaluation not changing prior to induction *Anesthetic plan, risk benefits, alternative and complications discussed with patient/family; questions answered; patient/family understands, accepts and wishes to proceed. Chair Upholsterer used RADHA LANCE August 16, 2018 08:28
[2018-08-16] MEDS: SUCRALFATE (100 MG/ML) 10ML CUP PO SCH ×4 (09:00→21:00)
[2018-08-16] MEDS: VANCOMYCIN 750 MG (PMX) 250 ML IVPB SCH ×2 (09:37→21:46)
[2018-08-16] MEDS: SOD CHLORIDE 0.45% 1,000 ML IV SCH (12:00)
--- NOTE | 2018-08-16 14:32 | PN ---
Date/Time of Note Date/Time of Note DATE: 08/16/18 TIME: 14:29 Assessment/Plan VTE Prophylaxis Risk score (from [facility])>0 risk: 3 SCD applied (from [facility]): Yes Pharmacological prophylaxis: other (scds) Lines/Catheters IV [facility]ter Type (from [facility]): Peripheral IV Urinary Cath still in place: No Assessment/Plan Hospital Course Assessment: Upper abdominal pain with associated nausea/vomiting -MRCP- negative for choledocholithiasis -mild prominence of CBD Profoundly elevated LFTs on admission - improving -Hep A/B/C- negative -Auto-immune work-up negative Hyperbilirubinemia - resolved Cholelithiasis Hepatic steatosis 1.4 cm hypoechoic lesion within the right hepatic lobe -Ct with liver protocol - Benign hepatic hemangioma is identified Leukocytosis and fever noted 08/14 Plan: HIDA - abnormal Plan for cholecystectomy today Patient seen in collaboration with Dr. Gómez Subjective/Free text: Course reviewed with nursing staff Patient interviewed and examined All labs, imaging and other results reviewed Pt currently NPO for planned surgery today Continues to c/o upper abd pain. PHYSICAL EXAMINATION: GENERAL: Well developed, obese , well nourished, alert & oriented x 3, in no acute distress SKIN: No lesions HEAD: Normocephalic, atraumatic, no tenderness. EYES: Pupils equal reactive to light, no discharge. EARS/NOSE AND THROAT: Ears normal, nose normal. NECK: Supple, no masses. CHEST: Inspection within normal limits. CARDIOVASCULAR: Heart: Regular rate and rhythm RESPIRATORY: Lungs clear to auscultation GASTROINTESTINAL AND LIVER: Abdomen: Soft, right upper quadrant abdominal pain/epigastric pain, non-distended, no hernias, no masses, no organomegaly, no rebound tenderness, normoactive bowel sounds. Rectal: Deferred. EXTREMITIES: No cyanosis, clubbing or edema. Result Diagram: 08/16/18 0633 08/16/1833 Results 24hrs Laboratory Tests Test 08/16/18 06:33 White Blood Count 15.1 H Red Blood Count 4.00 L Hemoglobin 11.2 L Hematocrit 34.6 L Mean Corpuscular Volume 86.5 Mean Corpuscular Hemoglobin 28.0 L Mean Corpuscular Hemoglobin Concent 32.4 Red Cell Distribution Width 14.0 Platelet Count 245 Mean Platelet Volume 11.1 H Immature Granulocytes % 0.700 H Neutrophils % 78.7 H Lymphocytes % 11.0 L Monocytes % 8.0 Eosinophils % 1.1 Basophils % 0.5 Nucleated Red Blood Cells % 0.0 Immature Granulocytes # 0.100 H Neutrophils # 11.9 H Lymphocytes # 1.7 Monocytes # 1.2 H Eosinophils # 0.2 Basophils # 0.1 Nucleated Red Blood Cells # 0.0 Sodium Level 139 Potassium Level 4.2 Chloride Level 104 Carbon Dioxide Level 28 Anion Gap 7 Blood Urea Nitrogen 6 L Creatinine 0.66 Est Glomerular Filtrat Rate mL/min > 60 Glucose Level 101 Calcium Level 8.7 Magnesium Level 2.2 Total Bilirubin 0.8 Direct Bilirubin 0.00 Indirect Bilirubin 0.8 Aspartate Amino Transf (AST/SGOT) 33 Alanine Aminotransferase (ALT/SGPT) 149 H Alkaline Phosphatase 133 H Total Protein 6.8 Albumin 3.4 Globulin 3.40 H Albumin/Globulin Ratio 1.00 Exam/Review of Systems Exam Vitals Vital Signs Date Temp Pulse Resp B/P (MAP) Pulse Ox O2 O2 Flow FiO2 Time Delivery Rate 08/16/18 98.7 72 17 102/61 97 Room Air 08:00 (75) Intake and Output 08/15/18 08/15/18 08/16/18 1515:00 23:00 07:00 IntakeIntake Total 820 ml 2300 ml 825 ml BalanceBalance 820 ml 2300 ml 825 ml Results Results 24hrs Laboratory Tests Test 08/16/18 06:33 White Blood Count 15.1 H Red Blood Count 4.00 L Hemoglobin 11.2 L Hematocrit 34.6 L Mean Corpuscular Volume 86.5 Mean Corpuscular Hemoglobin 28.0 L Mean Corpuscular Hemoglobin Concent 32.4 Red Cell Distribution Width 14.0 Platelet Count 245 Mean Platelet Volume 11.1 H Immature Granulocytes % 0.700 H Neutrophils % 78.7 H Lymphocytes % 11.0 L Monocytes % 8.0 Eosinophils % 1.1 Basophils % 0.5 Nucleated Red Blood Cells % 0.0 Immature Granulocytes # 0.100 H Neutrophils # 11.9 H Lymphocytes # 1.7 Monocytes # 1.2 H Eosinophils # 0.2 Basophils # 0.1 Nucleated Red Blood Cells # 0.0 Sodium Level 139 Potassium Level 4.2 Chloride Level 104 Carbon Dioxide Level 28 Anion Gap 7 Blood Urea Nitrogen 6 L Creatinine 0.66 Est Glomerular Filtrat Rate mL/min > 60 Glucose Level 101 Calcium Level 8.7 Magnesium Level 2.2 Total Bilirubin 0.8 Direct Bilirubin 0.00 Indirect Bilirubin 0.8 Aspartate Amino Transf (AST/SGOT) 33 Alanine Aminotransferase (ALT/SGPT) 149 H Alkaline Phosphatase 133 H Total Protein 6.8 Albumin 3.4 Globulin 3.40 H Albumin/Globulin Ratio 1.00 Medications Medication Current Medications IV Flush (NS 3 ml) 3 ml PER PROTOCOL IV ; Start 08/09/18 at 16:00 Acetaminophen (Tylenol Tab) 650 mg Q6H PRN PO .PAIN 1-3 OR TEMP; Start 08/09/18 at 16:00 Ondansetron HCl (Zofran Inj) 4 mg Q4H PRN IV NAUSEA/VOMITING Last administered on 08/14/18 06:59; Admin Dose 4 MG; Start 08/13/18 at 02:00 Hydromorphone HCl (Dilaudid) 1 mg Q3H PRN IV SEVERE PAIN LEVEL 7-10 Last adm inistered on 08/16/18 12:16; Admin Dose 1 MG; Start 08/13/18 at 05:00 Polyethylene Glycol (Miralax) 17 gm DAILY PRN PO CONSTIPATION Last administered on 08/14/18 07:00; Admin Dose 17 GM; Start 08/13/18 at 11:00 Docusate Sodium (Colace) 100 mg BID PRN PO CONSTIPATION; Start 08/13/18 at 11:00 Pantoprazole (Protonix Tab) 40 mg BID@06,18 PO Last administered on 08/15/18 05:37; Admin Dose 40 MG; Start 08/14/18 at 18:00 Sucralfate (Carafate Susp) 1 gm QID PO Last administered on 08/15/18 21:12; Admin Dose 1 GM; Start 08/15/18 at 00:00 Sodium Chloride 1,000 ml @ 50 mls/hr Q20H IV Last administered on 08/15/18 16:11; Admin Dose 50 MLS/HR; Start 08/15/18 at 16:00 Piperacillin Sod/ Tazobactam Sod 100 ml @ 200 mls/hr Q6 IVPB Last administered on 08/16/18 13:31; Admin Dose 200 MLS/HR; Start 08/15/18 at 18:00 Vancomycin HCl (Vanco Iv Per Pharmacy) VANCOMYCIN PER PHARMACY PER PROTOCOL XX ; Start 08/15/18 at 16:30 Vancomycin/Sodium Chloride 250 ml @ 125 mls/hr Q12H IVPB Last administered on 08/16/18at 09:37; Admin Dose 125 MLS/HR; Start 08/16/18 at 09:00 BILL APONTE August 16, 2018 14:32
--- NOTE | 2018-08-16 14:41 | PN ---
Date/Time of Note Date/Time of Note DATE: 08/16/18 TIME: 14:40 Objective Vitals Vital Signs Date Temp Pulse Resp B/P (MAP) Pulse Ox O2 O2 Flow FiO2 Time Delivery Rate 08/16/18 98.7 72 17 102/61 97 Room Air 08:00 (75) Intake and Output 08/15/18 08/15/18 08/16/18 1515:00 23:00 07:00 IntakeIntake Total 820 ml 2300 ml 825 ml BalanceBalance 820 ml 2300 ml 825 ml Results Result Diagram: 08/16/1833 08/16/1833 Medications Medications Current Medications IV Flush (NS 3 ml) 3 ml PER PROTOCOL IV ; Start 08/09/18 at 16:00 Acetaminophen (Tylenol Tab) 650 mg Q6H PRN PO .PAIN 1-3 OR TEMP; Start 08/09/18 at 16:00 Ondansetron HCl (Zofran Inj) 4 mg Q4H PRN IV NAUSEA/VOMITING Last administered on 08/14/18at 06:59; Admin Dose 4 MG; Start 08/13/18 at 02:00 Hydromorphone HCl (Dilaudid) 1 mg Q3H PRN IV SEVERE PAIN LEVEL 7-10 Last administered on 08/16/18at 12:16; Admin Dose 1 MG; Start 08/13/18 at 05:00 Polyethylene Glycol (Miralax) 17 gm DAILY PRN PO CONSTIPATION Last administered on 08/14/18at 07:00; Admin Dose 17 GM; Start 08/13/18 at 11:00 Docusate Sodium (Colace) 100 mg BID PRN PO CONSTIPATION; Start 08/13/18 at 11:00 Pantoprazole (Protonix Tab) 40 mg BID@06,18 PO Last administered on 08/15/18at 05:37; Admin Dose 40 MG; Start 08/14/18 at 18:00 Sucralfate (Carafate Susp) 1 gm QID PO Last administered on 08/15/18at 21:12; Admin Dose 1 GM; Start 08/15/18 at 00:00 Sodium Chloride 1,000 ml @ 50 mls/hr Q20H IV Last administered on 08/15/18at 16:11; Admin Dose 50 MLS/HR; Start 5/21/19 at 16:00 Piperacillin Sod/ Tazobactam Sod 100 ml @ 200 mls/hr Q6 IVPB Last administered on 08/16/18at 13:31; Admin Dose 200 MLS/HR; Start 08/15/18 at 18:00 Vancomycin HCl (Vanco Iv Per Pharmacy) VANCOMYCIN PER PHARMACY PER PROTOCOL XX ; Start 08/15/18 at 16:30 Vancomycin/Sodium Chloride 250 ml @ 125 mls/hr Q12H IVPB Last administered on 08/16/18at 09:37; Admin Dose 125 MLS/HR; Start 08/16/18 at 09:00 VTE Prophylaxis Risk score (from [facility] [place])>0 risk: 3 SCD applied (from [facility] [place]): Yes Lines/Catheters IV Catheter Type: Juarez in Place: No Assessment/Plan Hospital Course Subjective Still with abdominal pain, more or less the same as yesterday Objective Physical exam General: Patient is laying in bed and answers questions appropriately Mentation: Patient is alert and oriented 4, Head: Normocephalic atraumatic Eyes: EOMI, pupils reactive to light Neck: Supple, nontender, midline Respiratory: Clear to auscultation bilaterally Cardiovascular: regular rate, no obvious murmurs Gastrointestinal:epigastric area tender to palpation, bowel sounds heard. Neurological: Moves all extremities spontaneously Skin: No new skin lesions Assessment/Plan 1. Acute right upper quadrant/epigastric pain - patient still with moderate pain in RUQ and intolerance when palpated. nausea relieved with Zofran -ERCP canceled per GI due to resolving bilirubin and liver values - LFT still elevated but trending downward - MRCP negative for choledocholithiasis - initial US showed contracted GB and ?porcelain GB but not documented - General surgery consultation appreciated. -HIDA noted 2. Leukocytosis - cont on abx and monitor for improvement in WBC, mild worsening today, abx adjusted 3. Symptomatic cholelithiasis/cholecystitis - Gen Surgery on board and appreciate recommendations. will need eventual cholecystectomy given persistent pain and nausea 4. Disposition -likely lap thang today MARTHA RAMÍREZ August 16, 2018 14:41
--- NOTE | 2018-08-16 15:56 | PN ---
Date/Time of Note Date/Time of Note DATE: 08/16/18 TIME: 15:52 Assessment/Plan Lines/Catheters IV Catheter Type (from [facility]): Ujarez in Place (from [facility]): No Assessment/Plan Chief Complaint/Hosp Course 1. Abdominal pain 2. Transaminitis w hyperbilirubinemia (improved today) 3. Dilated common bile duct with ? choledocholithiasis (despite negative mrcp) 4. Steatosis w +Hep AB -ERCP was not done 2/2 improving labs, however pt continues to have significant pain -All imaging do not show cholecysitis however since increase in wbc, cholecystitis is possible> HIDA noted with nonfilling of gallbladder as well as possible partial CBD obstruction> lap thang today -Pain control -Encourage weight optimization -abx 5. BMI 33 -Nutrition and exercise optimization 6. Leukocytosis ? 2nd above -as above -trend Thank you. Patient seen and examined in collaboration with Dr. Ryan Clark. Subjective 24 Hr Interval Summary Continues to have some abdominal pain. HIDA noted. WBC minimally improved. No fevers, chills, sob, congested cough, cp, palpitations, sanchez, dizziness, nausea, vomiting, diarrhea, dysuria. Exam/Review of Systems Vital Signs Vitals Vital Signs Date Temp Pulse Resp B/P (MAP) Pulse Ox O2 O2 Flow FiO2 Time Delivery Rate 08/16/18 98.7 72 17 102/61 97 Room Air 08:00 (75) Intake and Output 08/15/18 08/15/18 08/16/18 1515:00 23:00 07:00 IntakeIntake Total 820 ml 2300 ml 825 ml BalanceBalance 820 ml 2300 ml 825 ml Exam Free Text/Dictation Constitutional: alert, oriented, obese; No distress Psych: nl mood/affect; No anxiety Head: normocephalic, atraumatic Eyes: nl conjunctiva, EOMI, PERRL; No icteric ENMT: nl external ears & nose, mucosa pink and moist Neck: supple, non-tender; No jvd Respiratory: normal air movement; No congested cough, No labored breathing Cardiovascular: regular rate and rhythm; No edema Gastrointestinal: soft, tender (ruq & epigastric); No distended, No rebound or guarding Musculoskeletal: nl extremities to inspection, nl gait and stance; No joint tenderness Extremities: normal pulses; No calf tenderness, No edema Neurological: nl mental status, nl speech, nl strength Skin: nl turgor; No rash or lesions, No diaphoresis Lymph: nl lymph nodes Results Result Diagram: 08/16/18 0633 08/16/18 0633 MAAME BARCENAS NP August 16, 2018 15:56
[2018-08-16] MEDS ORDERED: LIDOCAINE 1% (MPF) 30 ML INJ ONE (18:29)
[2018-08-16] MEDS ORDERED: BUPIVACAINE 0.25%/EPI (SDV) 30 ML INJ ONE (18:29)
[2018-08-16] MEDS ORDERED: FENTAnyl 50 MCG/ML VIAL ONE (18:42)
[2018-08-16] MEDS ORDERED: MIDAZOLAM 1 MG/ML 2 ML INJ ONE (18:42)
[2018-08-16] MEDS ORDERED: CEFAZOLIN 1 GM INJ ONE (18:42)
[2018-08-16] MEDS ORDERED: PROPOFOL 20 ML ONE (18:42)
[2018-08-16] MEDS ORDERED: ROPIVACAINE 0.2% 20 ML VIAL ONE (18:42)
[2018-08-16] MEDS ORDERED: ROCURONIUM 50 MG INJ ONE (18:42)
[2018-08-16] MEDS ORDERED: METOCLOPRAMIDE 10 MG INJ ONE (19:20)
[2018-08-16] MEDS ORDERED: KETOROLAC 30 MG INJ ONE (19:20)
[2018-08-16] MEDS ORDERED: ONDANSETRON 4 MG INJ ONE (19:20)
[2018-08-16] MEDS ORDERED: DEXAMETHASONE 4 MG/ML 5 ML INJ ONE (19:20)
[2018-08-16] MEDS ORDERED: IOHEXOL 300MG/ML 30 ML BTL ONE (19:24)
[2018-08-16] MEDS ORDERED: SUGAMMADEX SODIUM 200 MG/2 ML VIAL IV ONE (19:25)
[2018-08-16] MEDS ORDERED: ONDANSETRON 4 MG INJ IV PRN (19:30)
[2018-08-16] MEDS ORDERED: hydrALAzine 20 MG INJ IV PRN (19:30)
[2018-08-16] MEDS ORDERED: MEPERIDINE 25 MG INJ IV PRN (19:30)
[2018-08-16] MEDS ORDERED: FENTAnyl 50 MCG/ML VIAL IV PRN ×3 (19:30)
[2018-08-16] MEDS ORDERED: METOCLOPRAMIDE 10 MG INJ IV PRN (19:30)
[2018-08-16] MEDS ORDERED: DIPHENHYDRAMINE 50 MG INJ IV PRN (19:30)
[2018-08-16] MEDS ORDERED: LABETALOL HCL 20MG INJ IV PRN (19:30)
[2018-08-16] MEDS ORDERED: OXYCODONE/ACETAMINOPHEN (5/325) TAB PO PRN (19:30)
[2018-08-16] MEDS ORDERED: HYDROmorphONE 1 MG/5 ML IV SYRINGE IV PRN ×3 (19:30)
[2018-08-16] MEDS ORDERED: EPHEDrine 25 MG/5 ML SYG IV PRN (19:30)
--- NOTE | 2018-08-16 20:01 | PAC ---
Date/Time of Note Date/Time of Note DATE: 08/16/18 TIME: 20:00 Post-Anesthesia Notes Post-Anesthesia Note Last documented vital signs Vital Signs Date Temp Pulse Resp B/P (MAP) Pulse Ox O2 O2 Flow FiO2 Time Delivery Rate 08/16/18 98.5 78 18 125/75 98 Room Air 19:59 (92) Activity: WNL Respiratory function: WNL Cardiovascular function: WNL Mental status: Baseline Pain reasonably controlled: Yes Hydration appropriate: Yes Nausea/Vomiting absent: Yes SUZE BATEMAN MD August 16, 2018 20:01
--- NOTE | 2018-08-16 20:07 | OPR ---
Date/Time of Note Date/Time of Note DATE: 08/16/18 TIME: 19:55 Operative Report Free Text/Dictation Preoperative Diagnosis: Cholelithiasis Possible cholecystitis with positive HIDA however she is on pain medications Transaminitis and hyperbilirubinemia improved BMI 33 Postoperative Diagnosis: Cholelithiasis Possible cholecystitis. Positive HIDA. However she was on pain medications Transaminitis and hyperbilirubinemia improved Normal liver color BMI 33 Operation(s) Performed: 1. 3 port laparoscopic cholecystectomy 2. Laparoscopic liver wedge resection biopsy 3. Laparoscopic intraoperative cholangiogram 4. [place] anesthetic [place], [id number] Surgeon: Brice Valenzuela MD Demonstrator Knitting: Sandi Clark NP Anesthesia: general, local, & regional Anesthesiologist: Ge Leos MD Estimated Blood Loss: Less than 10 ml's Specimens: Gallbladder Liver Tubes/Drains: None Complications: None Pt Condition Post Procedure: stable Disposition: PACU Indications: 42-year-old female with gallstones and abdominal pain here for cholecystectomy. Patient with negative cholecystitis on ultrasound MRI and CT. She had transaminitis and hyperbilirubinemia however those improved and white count went up and possibly developed cholecystitis. HIDA is positive. GI decided not to perform ERCP. She is here for cholecystectomy. Risks include but are not limited to bleeding, infection, abscess, seroma, damage to intestines, damage to the liver, damage to biliary tree, hernia formation, chronic pain, biloma, need for reoperations or further surgeries, MO, stroke, PE, DVT, pneumonia, organ failures, or even . Procedure Description: Patient was brought and placed supine on the operating table SCDs were placed, preoperative antibiotics were administered, all pressure points were well- padded, and after induction of anesthesia patient was prepped and draped in usual sterile fashion and timeout was performed. Incision was made in the supraumbilical region, Veress was safely inserted, and after a negative SIP test, abdomen was insufflated to 15mmHg. Veress was removed and 5mm port was safely inserted. The liver looks somewhat abnormal color. The gallbladder is contracted and slightly thickened with possible evidence of inflammation and infection. 12 mm port is placed in subxiphoid under direct visualization followed by another 5 mm port in the right upper quadrant. All port sites were injected with quarter percent Marcaine with epi and 1% lidocaine prior to any incisions. Patient was placed in reverse Trendelenburg and right side up on gallbladder was retracted superolaterally. Using electrocautery and blunt dissection I was able to identify the cystic artery and cystic duct. The duct was slightly dilated but tapered into the gallbladder. Full critical angle view was identified. Clip was placed distally on the cystic duct. Cystotomy was created and cholangiography was performed. I was unable to fill the proximal duct however bowel was lighting up with contrast. Both structures of cystic duct and artery were clipped twice proximally and once distally and transected. The gallbladder was taken off the liver with electrocautery. Hemostasis was obtained. Gallbladder was placed in an Endo Catc h bag and removed through the subxiphoid port site. There was complete hemostasis. Due to the abnormality of the liver and recent transaminitis and hyperbilirubinemia, decision was made to perform liver wedge resection which was done with electrocautery and scissor with complete hemostasis right after. The specimen was sent to pathology for further evaluation. 12 mm made port site fascia was closed with Endo Close of an 0 Vicryl in a [id number] manner. Ports and CO2 were removed under direct visualization. Next complete hemostasis. Wounds were thoroughly irrigated skin was closed with 4-0 Monocryl in subcuticular fashion. Dermabond was applied. Patient was extubated and transferred to recovery room in stable condition and all counts were correct and the end of the operation 2. BRICE VALENZUELA MD August 16, 2018 20:06
[2018-08-16] MEDS ORDERED: HYDROmorphONE 1 MG/5 ML IV SYRINGE IV ONE (20:44)
[2018-08-17 01:45] VITALS: BP 101/52; PULSE 72; RESP 19
[2018-08-17] MEDS: SOD CHLORIDE 0.45% 1,000 ML IV SCH (03:04)
[2018-08-17] MEDS: PIPER-TAZO 3.375 GM IV (PMX) 100 ML IVPB SCH ×3 (05:45→17:26)
[2018-08-17] MEDS: PANTOPRAZOLE (EC) 40 MG TAB PO SCH ×2 (05:45→17:26)
[2018-08-17 08:00] VITALS: BP 114/68; PULSE 61; RESP 16
[2018-08-17] MEDS ORDERED: KETOROLAC 30 MG INJ IV PRN ×2 (08:30→09:00)
[2018-08-17] MEDS ORDERED: DIPHENHYDRAMINE 50 MG INJ IV PRN ×2 (08:30→09:00)
[2018-08-17] MEDS ORDERED: morphine 2 MG INJ IV PRN ×6 (08:30→09:00)
[2018-08-17] MEDS ORDERED: ONDANSETRON 4 MG INJ IV PRN ×2 (08:30→09:00)
[2018-08-17] MEDS ORDERED: NALOXONE (0.4 MG/ML) INJ IV PRN (09:00)
[2018-08-17] MEDS: HYDROmorphONE 1 MG/ML SYG IV PRN (09:22)
[2018-08-17] MEDS: SUCRALFATE (100 MG/ML) 10ML CUP PO SCH (09:22)
[2018-08-17] MEDS: VANCOMYCIN 750 MG (PMX) 250 ML IVPB SCH (09:28)
--- NOTE | 2018-08-17 13:23 | PN ---
Date/Time of Note Date/Time of Note DATE: 08/17/18 TIME: 13:22 Objective Vitals Vital Signs Date Temp Pulse Resp B/P (MAP) Pulse Ox O2 O2 Flow FiO2 Time Delivery Rate 08/17/18 98.5 61 16 114/68 97 Room Air 08:00 (83) 08/16/18 8.0 20:11 Intake and Output 08/16/18 08/16/18 08/17/18 1515:00 23:00 07:00 IntakeIntake Total 350 ml 1275 ml 1080 ml OutputOutput Total 10 ml BalanceBalance 350 ml 1265 ml 1080 ml Results Result Diagram: 08/17/18 0554 08/17/18 0554 Medications Medications Current Medications IV Flush (NS 3 ml) 3 ml PER PROTOCOL IV ; Start 08/09/18 at 16:00 Acetaminophen (Tylenol Tab) 650 mg Q6H PRN PO .PAIN 1-3 OR TEMP Last administered on 08/17/18at 05:55; Admin Dose 650 MG; Start 08/09/18 at 16:00 Ondansetron HCl (Zofran Inj) 4 mg Q4H PRN IV NAUSEA/VOMITING Last administered on 08/14/18at 06:59; Admin Dose 4 MG; Start 08/13/18 at 02:00 Polyethylene Glycol (Miralax) 17 gm DAILY PRN PO CONSTIPATION Last administered on 08/14/18at 07:00; Admin Dose 17 GM; Start 08/13/18 at 11:00 Docusate Sodium (Colace) 100 mg BID PRN PO CONSTIPATION; Start 08/13/18 at 11:00 Pantoprazole (Protonix Tab) 40 mg BID@06,18 PO Last administered on 08/17/18at 05:45; Admin Dose 40 MG; Start 08/14/18 at 18:00 Piperacillin Sod/ Tazobactam Sod 100 ml @ 200 mls/hr Q6 IVPB Last administered on 08/17/18at 11:36; Admin Dose 200 MLS/HR; Start 08/15/18 at 18:00 Naloxone HCl (Narcan) 0.1 mg Q2M PRN IV .RESP RATE; Start 08/17/18 at 09:00; Stop 08/18/18 at 08:59 Ketorolac Tromethamine (Toradol) 30 mg Q6H PRN IV PAIN AFTER CSECTION; Start 08/17/18 at 09:00; Stop 08/18/18 at 08:59 Morphine Sulfate (morphine) 3 mg Q3 PRN IV .BREAKTHROUGH PAIN; Start 08/17/18 at 09:00; Stop 08/18/18 at 08:59 Morphine Sulfate (morphine) 2 mg Q3H PRN IV .PAIN 1-5; Start 08/17/18 at 09:00; Stop 08/18/18 at 08:59 Morphine Sulfate (morphine) 4 mg Q3H PRN IV .PAIN 6-10; Start 08/17/18 at 09:00; Stop 08/18/18 at 08:59 Diphenhydramine HCl (Benadryl) 25 mg Q6H PRN IV .ITCHING; Start 08/17/18 at 09:00; Stop 08/18/18 at 08:59 Ondansetron HCl (Zofran Inj) 4 mg Q6H PRN IV .NAUSEA/VOMITING; Start 08/17/18 at 09:00; Stop 08/18/18 at 08:59 Acetaminophen/ Hydrocodone Bitart ([place] (5/325)) 1 tab Q4H PRN PO MODERATE PAIN LEVEL 4-6; Start 08/17/18 at 13:30 VTE Prophylaxis Risk score (from Ns)>0 risk: 5 SCD applied (from Nsg): Yes Lines/Catheters IV Catheter Type: [place] in Place: No Assessment/Plan Hospital Course Subjective doing better, s/p surgery, some ab pain still Objective Physical exam General: Patient is laying in bed and answers questions appropriately Mentation: Patient is alert and oriented 4, Head: Normocephalic atraumatic Eyes: EOMI, pupils reactive to light Neck: Supple, nontender, midline Respiratory: Clear to auscultation bilaterally Cardiovascular: regular rate, no obvious murmurs Gastrointestinal:mildly tender to palpation, bowel sounds heard. Neurological: Moves all extremities spontaneously Skin: No new skin lesions Assessment/Plan 1. Acute right upper quadrant/epigastric pain -s/p lap thang on 08/16/18 -mild to mod pain -ERCP canceled per GI due to resolving bilirubin and liver values - LFT still elevated but trending downward 2. Leukocytosis - improvement 3. Symptomatic cholelithiasis/cholecystitis -s/p lap thang 4. Disposition -gen surg would like 1 more day observation. cont abx for now MARTHA RAMÍREZ August 17, 2018 13:23
--- NOTE | 2018-08-17 13:42 | PN ---
Date/Time of Note Date/Time of Note DATE: 08/17/18 TIME: 13:36 Assessment/Plan Lines/Catheters IV Catheter Type (from [facility]): [facility] in [facility] (from [facility]): No Assessment/Plan Chief Complaint/Hosp Course 1. Abdominal pain 2. Transaminitis w hyperbilirubinemia (improved today) 3. Dilated common bile duct with ? choledocholithiasis (despite negative mrcp) 4. Steatosis w +Hep AB; Cholelithiasis; Possible cholecystitis. Positive HIDA. However she was on pain medications -IS -ambulate -ice pack to abdominal wall -advance diet as tolerated -Encourage weight optimization -continue abx 5. BMI 33 -Nutrition and exercise optimization 6. Leukocytosis ? 2nd above improving -as above -trend Thank you. Patient seen and examined in collaboration with Dr. Ryan Clark. Subjective 24 Hr Interval Summary sp lap thang. No fevers, chills, sob, congested cough, cp, palpitations, sanchez, dizziness, n/v/d/dysuria. wbc improving. Exam/Review of Systems Vital Signs Vitals Vital Signs Date Temp Pulse Resp B/P (MAP) Pulse Ox O2 O2 Flow FiO2 Time Delivery Rate 08/17/18 98.5 61 16 114/68 97 Room Air 08:00 (83) 08/16/18 8.0 20:11 Intake and Output 08/16/18 08/16/18 08/17/18 1515:00 23:00 07:00 IntakeIntake Total 350 ml 1275 ml 1080 ml OutputOutput Total 10 ml BalanceBalance 350 ml 1265 ml 1080 ml Exam Free Text/Dictation Constitutional: alert, oriented, obese; No distress Psych: nl mood/affect; No anxiety Head: normocephalic, atraumatic Eyes: nl conjunctiva, EOMI, PERRL; No icteric ENMT: nl external ears & nose, mucosa pink and moist Neck: supple, non-tender; No jvd Respiratory: normal air movement; No congested cough, No labored breathing Cardiovascular: regular rate and rhythm; No edema Gastrointestinal: soft, tender (incision sites dry without drainage/discoloration/bruising); No distended, No rebound or guarding Musculoskeletal: nl extremities to inspection, nl gait and stance; No joint tenderness Extremities: normal pulses; No calf tenderness, No edema Neurological: nl mental status, nl speech, nl strength Skin: nl turgor; No rash or lesions, No diaphoresis Lymph: nl lymph nodes Results Result Diagram: 08/17/18 0554 08/17/18 0554 MAAME BARCENAS NP August 17, 2018 13:42
[2018-08-17 14:00] VITALS: BP 122/62; PULSE 63; RESP 17
--- NOTE | 2018-08-17 14:11 | PN ---
Date/Time of Note Date/Time of Note DATE: 08/17/18 TIME: 14:05 Assessment/Plan VTE Prophylaxis Risk score (from Nsg)>0 risk: 5 SCD applied (from Nsg): Yes Pharmacological prophylaxis: other (scds) Lines/Catheters IV Catheter Type (from Nrsg): Urinary Cath still in place: No Assessment/Plan Hospital Course Assessment: Upper abdominal pain with associated nausea/vomiting -MRCP- negative for choledocholithiasis -mild prominence of CBD Profoundly elevated LFTs on admission - improving -Hep A/B/C- negative -Auto-immune work-up negative Hyperbilirubinemia - resolved Cholelithiasis -S/p cholecystectomy 08/16/18- with liver wedge bx Hepatic steatosis 1.4 cm hypoechoic lesion within the right hepatic lobe -Ct with liver protocol - Benign hepatic hemangioma is identified Leukocytosis- improved Fever noted 08/14 - resolved Plan: Diet per surgery Monitor labs Pt appears stable for out-pt management- from GI point of view D/c planning per hospitalist/surgery Patient seen in collaboration with Dr. Gómez Subjective/Free text: Course reviewed with nursing staff Patient interviewed and examined All labs, imaging and other results reviewed Pt c/o some surgical pain. But overall feels much better Tolerating diet well. No c/o n/v. Does have some gas. Encouraged to ambulate and deep breath. PHYSICAL EXAMINATION: GENERAL: Well developed, obese , well nourished, alert & oriented x 3, in no acu te distress SKIN: Surgical incisions HEAD: Normocephalic, atraumatic, no tenderness. EYES: Pupils equal reactive to light, no discharge. EARS/NOSE AND THROAT: Ears normal, nose normal. NECK: Supple, no masses. CHEST: Inspection within normal limits. CARDIOVASCULAR: Heart: Regular rate and rhythm RESPIRATORY: Lungs clear to auscultation GASTROINTESTINAL AND LIVER: Abdomen: Soft, right upper quadrant abdominal pain/epigastric pain, non-distended, no hernias, no masses, no organomegaly, no rebound tenderness, normoactive bowel sounds. Rectal: Deferred. EXTREMITIES: No cyanosis, clubbing or edema. Result Diagram: 08/17/18 0554 08/17/18 0554 Results 24hrs Laboratory Tests Test 08/17/18 05:53 08/17/18 05:54 08/17/18 08:19 Sodium Level 138 139 Potassium Level 4.3 4.3 Chloride Level 103 104 Carbon Dioxide Level 26 27 Anion Gap 9 8 Blood Urea Nitrogen 7 7 Creatinine 0.62 0.58 Est Glomerular Filtrat Rate mL/min > 60 > 60 Glucose Level 150 148 Calcium Level 9.0 8.8 Phosphorus Level 4.4 Magnesium Level 2.4 Total Bilirubin 0.5 0.5 Direct Bilirubin 0.00 0.00 Indirect Bilirubin 0.5 0.5 Aspartate Amino Transf (AST/SGOT) 38 33 Alanine Aminotransferase (ALT/SGPT) 118 H 113 H Alkaline Phosphatase 121 134 H Total Protein 6.6 7.5 Albumin 3.6 3.7 White Blood Count 13.1 H Red Blood Count 4.16 L Hemoglobin 11.6 L Hematocrit 35.4 L Mean Corpuscular Volume 85.1 Mean Corpuscular Hemoglobin 27.9 L Mean Corpuscular Hemoglobin Concent 32.8 Red Cell Distribution Width 13.6 Platelet Count 330 # Mean Platelet Volume 10.3 Immature Granulocytes % 0.400 Neutrophils % 91.8 H Lymphocytes % 6.6 L Monocytes % 1.0 Eosinophils % 0.0 Basophils % 0.2 Nucleated Red Blood Cells % 0.0 Immature Granulocytes # 0.050 H Neutrophils # 12.0 H Lymphocytes # 0.9 Monocytes # 0.1 L Eosinophils # 0.0 Basophils # 0.0 Nucleated Red Blood Cells # 0.0 Globulin 3.80 H Albumin/Globulin Ratio 0.97 Vancomycin Level Trough < 5.0 L Exam/Review of Systems Exam Vitals Vital Signs Date Temp Pulse Resp B/P (MAP) Pulse Ox O2 O2 Flow FiO2 Time Delivery Rate 08/17/18 98.5 61 16 114/68 97 Room Air 08:00 (83) 08/16/18 8.0 20:11 Intake and Output 08/16/18 08/16/18 08/17/18 1515:00 23:00 07:00 IntakeIntake Total 350 ml 1275 ml 1080 ml OutputOutput Total 10 ml BalanceBalance 350 ml 1265 ml 1080 ml Results Results 24hrs Laboratory Tests Test 08/17/18 05:53 08/17/18 05:54 08/17/18 08:19 Sodium Level 138 139 Potassium Level 4.3 4.3 Chloride Level 103 104 Carbon Dioxide Level 26 27 Anion Gap 9 8 Blood Urea Nitrogen 7 7 Creatinine 0.62 0.58 Est Glomerular Filtrat Rate mL/min > 60 > 60 Glucose Level 150 148 Calcium Level 9.0 8.8 Phosphorus Level 4.4 Magnesium Level 2.4 Total Bilirubin 0.5 0.5 Direct Bilirubin 0.00 0.00 Indirect Bilirubin 0.5 0.5 Aspartate Amino Transf (AST/SGOT) 38 33 Alanine Aminotransferase (ALT/SGPT) 118 H 113 H Alkaline Phosphatase 121 134 H Total Protein 6.6 7.5 Albumin 3.6 3.7 White Blood Count 13.1 H Red Blood Count 4.16 L Hemoglobin 11.6 L Hematocrit 35.4 L Mean Corpuscular Volume 85.1 Mean Corpuscular Hemoglobin 27.9 L Mean Corpuscular Hemoglobin Concent 32.8 Red Cell Distribution Width 13.6 Platelet Count 330 # Mean Platelet Volume 10.3 Immature Granulocytes % 0.400 Neutrophils % 91.8 H Lymphocytes % 6.6 L Monocytes % 1.0 Eosinophils % 0.0 Basophils % 0.2 Nucleated Red Blood Cells % 0.0 Immature Granulocytes # 0.050 H Neutrophils # 12.0 H Lymphocytes # 0.9 Monocytes # 0.1 L Eosinophils # 0.0 Basophils # 0.0 Nucleated Red Blood Cells # 0.0 Globulin 3.80 H Albumin/Globulin Ratio 0.97 Vancomycin Level Trough < 5.0 L Medications Medication Current Medications IV Flush (NS 3 ml) 3 ml PER PROTOCOL IV ; Start 08/09/18 at 16:00 Acetaminophen (Tylenol Tab) 650 mg Q6H PRN PO .PAIN 1-3 OR TEMP Last administered on 08/17/18 05:55; Admin Dose 650 MG; Start 08/09/18 at 16:00 Ondansetron HCl (Zofran Inj) 4 mg Q4H PRN IV NAUSEA/VOMITING Last administered on 08/14/18 06:59; Admin Dose 4 MG; Start 08/13/18 at 02:00 Polyethylene Glycol (Miralax) 17 gm DAILY PRN PO CONSTIPATION Last administered on 08/14/18at 07:00; Admin Dose 17 GM; Start 08/13/18 at 11:00 Docusate Sodium (Colace) 100 mg BID PRN PO CONSTIPATION; Start 08/13/18 at 11: 00 Pantoprazole (Protonix Tab) 40 mg BID@,18 PO Last administered on 08/17/18at 05:45; Admin Dose 40 MG; Start 08/14/18 at 18:00 Piperacillin Sod/ Tazobactam Sod 100 ml @ 200 mls/hr Q6 IVPB Last administered on 08/17/18at 11:36; Admin Dose 200 MLS/HR; Start 08/15/18 at 18:00 Naloxone HCl (Narcan) 0.1 mg Q2M PRN IV .RESP RATE; Start 08/17/18 at 09:00; Stop 08/18/18 at 08:59 Ketorolac Tromethamine (Toradol) 30 mg Q6H PRN IV PAIN AFTER CSECTION; Start 08/17/18 at 09:00; Stop 08/18/18 at 08:59 Morphine Sulfate (morphine) 3 mg Q3 PRN IV .BREAKTHROUGH PAIN; Start 08/17/18 at 09:00; Stop 08/18/18 at 08:59 Morphine Sulfate (morphine) 2 mg Q3H PRN IV .PAIN 1-5; Start 08/17/18 at 09:00; Stop 08/18/18 at 08:59 Morphine Sulfate (morphine) 4 mg Q3H PRN IV .PAIN 6-10; Start 08/17/18 at 09:00; Stop 08/18/18 at 08:59 Diphenhydramine HCl (Benadryl) 25 mg Q6H PRN IV .ITCHING; Start 08/17/18 at 09 :00; Stop 08/18/18 at 08:59 Ondansetron HCl (Zofran Inj) 4 mg Q6H PRN IV .NAUSEA/VOMITING; Start 08/17/18 at 09:00; Stop 08/18/18 at 08:59 Acetaminophen/ Hydrocodone Bitart ([place] (5/325)) 1 tab Q4H PRN PO MODERATE PAIN LEVEL 4-6; Start 08/17/18 at 13:30 BILL APONTE August 17, 2018 14:11
[2018-08-17] MEDS ORDERED: VANCOMYCIN 750 MG (PMX) 250 ML IVPB SCH ×2 (16:00→17:00)
--- NOTE | 2018-08-17 16:03 | PN ---
Date/Time of Note Date/Time of Note DATE: 08/17/18 TIME: 16:02 Assessment/Plan Lines/Catheters IV Catheter Type (from [facility]): [facility] in [facility] (from [facility]): No Assessment/Plan Chief Complaint/Hosp Course 1. Abdominal pain 2. Transaminitis w hyperbilirubinemia (improved today) 3. Dilated common bile duct with ? choledocholithiasis (despite negative mrcp) 4. Steatosis w +Hep AB; Cholelithiasis; Possible cholecystitis. Positive HIDA. However she was on pain medications -IS -ambulate -ice pack to abdominal wall -advance diet as tolerated -Encourage weight optimization -continue abx 5. BMI 33 -Nutrition and exercise optimization 6. Leukocytosis ? 2nd above improving -as above -trend Thank you. Patient seen and examined in collaboration with Dr. Ryan Clark. Subjective 24 Hr Interval Summary Continues to have abdominal pain however improved. Min temp. No fevers, chills, sob, congested cough, cp, palpitations, sanchez, dizziness, nausea, vomiting, diarrhea, dysuria. Exam/Review of Systems Vital Signs Vitals Vital Signs Date Temp Pulse Resp B/P (MAP) Pulse Ox O2 O2 Flow FiO2 Time Delivery Rate 08/17/18 99.0 63 17 122/62 100 Room Air 14:00 (82) 08/16/18 8.0 20:11 Intake and Output 08/16/18 08/16/18 08/17/18 1515:00 23:00 07:00 IntakeIntake Total 350 ml 1275 ml 1080 ml OutputOutput Total 10 ml BalanceBalance 350 ml 1265 ml 1080 ml Exam Free Text/Dictation Constitutional: alert, oriented, obese; No distress Psych: nl mood/affect; No anxiety Head: normocephalic, atraumatic Eyes: nl conjunctiva, EOMI, PERRL; No icteric ENMT: nl external ears & nose, mucosa pink and moist Neck: supple, non-tender; No jvd Respiratory: normal air movement; No congested cough, No labored breathing Cardiovascular: regular rate and rhythm; No edema Gastrointestinal: soft, tender (ruq & epigastric); No distended, No rebound or guarding Musculoskeletal: nl extremities to inspection, nl gait and stance; No joint tenderness Extremities: normal pulses; No calf tenderness, No edema Neurological: nl mental status, nl speech, nl strength Skin: nl turgor; No rash or lesions, No diaphoresis Lymph: nl lymph nodes Results Result Diagram: 08/17/18 0554 08/17/18 0554 MAAME BARCENAS NP August 17, 2018 16:03
[2018-08-17] MEDS: HYDROCODONE/APAP (5/325) TAB PO PRN ×2 (17:26→22:07)
[2018-08-17 20:39] VITALS: BP 103/56; PULSE 65; RESP 18
[2018-08-18] MEDS: PIPER-TAZO 3.375 GM IV (PMX) 100 ML IVPB SCH ×5 (00:19→23:19)
[2018-08-18 02:35] VITALS: BP 107/60; PULSE 62; RESP 18
[2018-08-18] MEDS: PANTOPRAZOLE (EC) 40 MG TAB PO SCH ×2 (05:58→17:40)
[2018-08-18 07:15] VITALS: BP 135/80; PULSE 61; RESP 18
[2018-08-18] MEDS: HYDROCODONE/APAP (5/325) TAB PO PRN ×3 (09:00→22:25)
--- NOTE | 2018-08-18 12:20 | PN ---
Date/Time of Note Date/Time of Note DATE: 08/18/18 TIME: 12:19 Objective Vitals Vital Signs Date Temp Pulse Resp B/P (MAP) Pulse Ox O2 O2 Flow FiO2 Time Delivery Rate 08/18/18 97.8 61 18 135/80 93 07:15 (98) 08/17/18 Room Air 14:00 08/16/18 8.0 20:11 Intake and Output 08/17/18 08/17/18 08/18/18 1515:00 23:00 07:00 IntakeIntake Total 1250 ml 500 ml 200 ml BalanceBalance 1250 ml 500 ml 200 ml Results Result Diagram: 08/18/18 0646 08/18/18 0646 Medications Medications Current Medications IV Flush (NS 3 ml) 3 ml PER PROTOCOL IV ; Start 08/09/18 at 16:00 Acetaminophen (Tylenol Tab) 650 mg Q6H PRN PO .PAIN 1-3 OR TEMP Last administered on 08/17/18at 05:55; Admin Dose 650 MG; Start 08/09/18 at 16:00 Ondansetron HCl (Zofran Inj) 4 mg Q4H PRN IV NAUSEA/VOMITING Last administered on 08/14/18at 06:59; Admin Dose 4 MG; Start 08/13/18 at 02:00 Polyethylene Glycol (Miralax) 17 gm DAILY PRN PO CONSTIPATION Last administered on 08/14/18at 07:00; Admin Dose 17 GM; Start 08/13/18 at 11:00 Docusate Sodium (Colace) 100 mg BID PRN PO CONSTIPATION; Start 08/13/18 at 11:00 Pantoprazole (Protonix Tab) 40 mg BID@06,18 PO Last administered on 08/18/18at 05:58; Admin Dose 40 MG; Start 08/14/18 at 18:00 Piperacillin Sod/ Tazobactam Sod 100 ml @ 200 mls/hr Q6 IVPB Last administered on 08/18/18at 12:12; Admin Dose 200 MLS/HR; Start 08/15/18 at 18:00 Acetaminophen/ Hydrocodone Bitart ([place] (5/325)) 1 tab Q4H PRN PO MODERATE PAIN LEVEL 4-6 Last administered on 08/18/18at 09:00; Admin Dose 1 TAB; Start 08/17/18 at 13:30 VTE Prophylaxis Risk score (from Nsg)>0 risk: 3 SCD applied (from Ns): Yes Lines/Catheters IV Catheter Type: Ju[facility] in Place: No Assessment/Plan Hospital Course Subjective doing well s/p surgery, minimal ab pain still Objective Physical exam General: Patient is laying in bed and answers questions appropriately Mentation: Patient is alert and oriented 4, Head: Normocephalic atraumatic Eyes: EOMI, pupils reactive to light Neck: Supple, nontender, midline Respiratory: Clear to auscultation bilaterally Cardiovascular: regular rate, no obvious murmurs Gastrointestinal:mildly tender to palpation, bowel sounds heard. Neurological: Moves all extremities spontaneously Skin: No new skin lesions Assessment/Plan 1. Acute right upper quadrant/epigastric pain -s/p lap thang on 08/16/18 -mild to mod pain -ERCP canceled per GI due to resolving bilirubin and liver values - LFT trending downward 2. Leukocytosis - improvement after surgery however has not returned to baseline levels, after speaking with surgeon appears that during intraoperative cholangiogram was not able to take a visualization of the liver, questionable residual blockage in the hepatic duct versus other signs of infection, will panculture, continue antibiotics and per surgery recommendations repeat MRCP for liver issues. 3. Symptomatic cholelithiasis/cholecystitis -s/p lap thang 4. Disposition -Panculture, MRCP pending, watch for resolution of WBC. MARTHA RAMÍREZ August 18, 2018 12:20
--- NOTE | 2018-08-18 13:14 | PN ---
Date/Time of Note Date/Time of Note DATE: 08/18/18 TIME: 13:12 Assessment/Plan Lines/Catheters IV Catheter Type (from [facility]): [facility] in [facility] (from [facility]): No Assessment/Plan Chief Complaint/Hosp Course 1. Abdominal pain 2. Transaminitis w hyperbilirubinemia (improved today) 3. Dilated common bile duct with ? choledocholithiasis (despite negative mrcp) 4. Steatosis w +Hep AB; Cholelithiasis; Possible cholecystitis. Positive HIDA. However she was on pain medications -IS -ambulate -ice pack to abdominal wall -advance diet as tolerated -Encourage weight optimization -continue abx -Follow path 5. BMI 33 -Nutrition and exercise optimization 6. Leukocytosis: Unknown etiology; notably WBC was within normal range at beginning of hospitalization -as above -trend -Panculture Thank you. Patient seen and examined in collaboration with Dr. Ryan Clark. Subjective 24 Hr Interval Summary Leukocytosis persistent. No fevers, chills, sob, congested cough, cp, palpitations, sanchez, dizziness, nausea, vomiting, diarrhea, dysuria. Exam/Review of Systems Vital Signs Vitals Vital Signs Date Temp Pulse Resp B/P (MAP) Pulse Ox O2 O2 Flow FiO2 Time Delivery Rate 08/18/18 97.8 61 18 135/80 93 07:15 (98) 08/17/18 Room Air 14:00 08/16/18 8.0 20:11 Intake and Output 08/17/18 08/17/18 08/18/18 1515:00 23:00 07:00 IntakeIntake Total 1250 ml 500 ml 200 ml BalanceBalance 1250 ml 500 ml 200 ml Exam Free Text/Dictation Constitutional: alert, oriented, obese; No distress Psych: nl mood/affect; No anxiety Head: normocephalic, atraumatic Eyes: nl conjunctiva, EOMI, PERRL; No icteric ENMT: nl external ears & nose, mucosa pink and moist Neck: supple, non-tender; No jvd Respiratory: normal air movement; No congested cough, No labored breathing Cardiovascular: regular rate and rhythm; No edema Gastrointestinal: soft, tender (ruq & epigastric); incision sites dry without drainage/discoloration/bruising No distended, No rebound or guarding Musculoskeletal: nl extremities to inspection, nl gait and stance; No joint tenderness Extremities: normal pulses; No calf tenderness, No edema Neurological: nl mental status, nl speech, nl strength Skin: nl turgor; No rash or lesions, No diaphoresis Lymph: nl lymph nodes Results Result Diagram: 08/18/18 0646 08/18/18 0646 MAAME BARCENAS NP August 18, 2018 13:14
[2018-08-18 14:05] VITALS: BP 140/77; PULSE 71; RESP 18
--- NOTE | 2018-08-18 14:08 | PN ---
Date/Time of Note Date/Time of Note DATE: 08/18/18 TIME: 14:00 Assessment/Plan VTE Prophylaxis Risk score (from Ns)>0 risk: 3 SCD applied (from Ns): Yes Pharmacological prophylaxis: heparin Lines/Catheters IV C[facility] Type (from [facility] Urinary Cath still in place: No Assessment/Plan Assessment/Plan Assessment: Upper abdominal pain with associated nausea/vomiting -MRCP- negative for choledocholithiasis -mild prominence of CBD Profoundly elevated LFTs on admission - improving -Hep A/B/C- negative -Auto-immune work-up negative Hyperbilirubinemia - resolved Cholelithiasis -S/p cholecystectomy 08/16/18- with liver wedge bx Hepatic steatosis 1.4 cm hypoechoic lesion within the right hepatic lobe -Ct with liver protocol - Benign hepatic hemangioma is identified Leukocytosis- improved Fever noted 08/14 - resolved Plan: Diet per surgery Repeat MRCP ordered - f/u on results Monitor labs Patient seen in collaboration with Dr. Gómez Subjective/Free text: Course reviewed with nursing staff Patient interviewed and examined All labs, imaging and other results reviewed Patient is improving. Complaining of mild discomfort in her right upper quadrant. Persistent leukocytosis noted. Intraoperative cholangiogram did not visualize the liver. Repeat MRCP has been noted to rule out choledocholithiasis as a cause of leukocytosis. No fevers overnight. Patient is tolerating regular diet well. PHYSICAL EXAMINATION: GENERAL: Well developed, obese , well nourished, alert & oriented x 3, in no acute distress SKIN: Surgical incisions HEAD: Normocephalic, atraumatic, no tenderness. EYES: Pupils equal reactive to light, no discharge. EARS/NOSE AND THROAT: Ears normal, nose normal. NECK: Supple, no masses. CHEST: Inspection within normal limits. CARDIOVASCULAR: Heart: Regular rate and rhythm RESPIRATORY: Lungs clear to auscultation GASTROINTESTINAL AND LIVER: Abdomen: Soft, right upper quadrant abdominal pain/epigastric pain, non-distended, no hernias, no masses, no organomegaly, no rebound tenderness, normoactive bowel sounds. Rectal: Deferred. EXTREMITIES: No cyanosis, clubbing or edema. Result Diagram: 08/18/18 0646 08/18/18 0646 Results 24hrs Laboratory Tests Test 08/18/18 06:46 White Blood Count 13.3 H Red Blood Count 3.80 L Hemoglobin 10.6 L Hematocrit 32.8 L Mean Corpuscular Volume 86.3 Mean Corpuscular Hemoglobin 27.9 L Mean Corpuscular Hemoglobin Concent 32.3 Red Cell Distribution Width 13.7 Platelet Count 319 Mean Platelet Volume 10.5 H Immature Granulocytes % 0.500 H Neutrophils % 70.3 Lymphocytes % 22.4 Monocytes % 5.3 Eosinophils % 1.1 Basophils % 0.4 Nucleated Red Blood Cells % 0.0 Immature Granulocytes # 0.070 H Neutrophils # 9.3 H Lymphocytes # 3.0 H Monocytes # 0.7 Eosinophils # 0.1 Basophils # 0.1 Nucleated Red Blood Cells # 0.0 Sodium Level 141 Potassium Level 3.8 Chloride Level 108 Carbon Dioxide Level 26 Anion Gap 7 Blood Urea Nitrogen 11 Creatinine 0.75 Est Glomerular Filtrat Rate mL/min > 60 Glucose Level 96 # Calcium Level 8.7 Magnesium Level 2.3 Total Bilirubin 0.4 Direct Bilirubin 0.00 Indirect Bilirubin 0.4 Aspartate Amino Transf (AST/SGOT) 28 Alanine Aminotransferase (ALT/SGPT) 80 H Alkaline Phosphatase 105 Total Protein 6.6 Albumin 3.5 Globulin 3.10 Albumin/Globulin Ratio 1.12 CC: KASIA GÓMEZ MD ; Exam/Review of Systems Exam Vitals Vital Signs Date Temp Pulse Resp B/P (MAP) Pulse Ox O2 O2 Flow FiO2 Time Delivery Rate 08/18/18 97.8 61 18 135/80 93 07:15 (98) 08/17/18 Room Air 14:00 08/16/18 8.0 20:11 Intake and Output 08/17/18 08/17/18 08/18/18 1515:00 23:00 07:00 IntakeIntake Total 1250 ml 500 ml 200 ml BalanceBalance 1250 ml 500 ml 200 ml Results Results 24hrs Laboratory Tests Test 08/18/18 06:46 White Blood Count 13.3 H Red Blood Count 3.80 L Hemoglobin 10.6 L Hematocrit 32.8 L Mean Corpuscular Volume 86.3 Mean Corpuscular Hemoglobin 27.9 L Mean Corpuscular Hemoglobin Concent 32.3 Red Cell Distribution Width 13.7 Platelet Count 319 Mean Platelet Volume 10.5 H Immature Granulocytes % 0.500 H Neutrophils % 70.3 Lymphocytes % 22.4 Monocytes % 5.3 Eosinophils % 1.1 Basophils % 0.4 Nucleated Red Blood Cells % 0.0 Immature Granulocytes # 0.070 H Neutrophils # 9.3 H Lymphocytes # 3.0 H Monocytes # 0.7 Eosinophils # 0.1 Basophils # 0.1 Nucleated Red Blood Cells # 0.0 Sodium Level 141 Potassium Level 3.8 Chloride Level 108 Carbon Dioxide Level 26 Anion Gap 7 Blood Urea Nitrogen 11 Creatinine 0.75 Est Glomerular Filtrat Rate mL/min > 60 Glucose Level 96 # Calcium Level 8.7 Magnesium Level 2.3 Total Bilirubin 0.4 Direct Bilirubin 0.00 Indirect Bilirubin 0.4 Aspartate Amino Transf (AST/SGOT) 28 Alanine Aminotransferase (ALT/SGPT) 80 H Alkaline Phosphatase 105 Total Protein 6.6 Albumin 3.5 Globulin 3.10 Albumin/Globulin Ratio 1.12 Medications Medication Current Medications IV Flush (NS 3 ml) 3 ml PER PROTOCOL IV ; Start 08/09/18 at 16:00 Acetaminophen (Tylenol Tab) 650 mg Q6H PRN PO .PAIN 1-3 OR TEMP Last administered on 08/17/18 05:55; Admin Dose 650 MG; Start 08/09/18 at 16:00 Ondansetron HCl (Zofran Inj) 4 mg Q4H PRN IV NAUSEA/VOMITING Last administered on 08/14/18 06:59; Admin Dose 4 MG; Start 08/13/18 at 02:00 Polyethylene Glycol (Miralax) 17 gm DAILY PRN PO CONSTIPATION Last administered on 08/14/18 07:00; Admin Dose 17 GM; Start 08/13/18 at 11:00 Docusate Sodium (Colace) 100 mg BID PRN PO CONSTIPATION; Start 08/13/18 at 11:00 Pantoprazole (Protonix Tab) 40 mg BID@06,18 PO Last administered on 08/18/18 05:58; Admin Dose 40 MG; Start 08/14/18 at 18:00 Piperacillin Sod/ Tazobactam Sod 100 ml @ 200 mls/hr Q6 IVPB Last administered on 08/18/18 12:12; Admin Dose 200 MLS/HR; Start 08/15/18 at 18:00 Acetaminophen/ Hydrocodone Bitart ([place] (5/325)) 1 tab Q4H PRN PO MODERATE PAIN LEVEL 4-6 Last administered on 08/18/18 09:00; Admin Dose 1 TAB; Start 08/17/18 at 13:30 LUKAS RENTERIA NP August 18, 2018 14:08
[2018-08-18 20:00] VITALS: BP 114/60; PULSE 62; RESP 18
[2018-08-19 01:42] VITALS: BP 105/61; PULSE 61; RESP 18
[2018-08-19] MEDS ORDERED: VANCOMYCIN HCL 1.5 GM in SOD CHLORIDE 0.9% 250 ML IVPB ONE (02:00)
[2018-08-19] MEDS: PIPER-TAZO 3.375 GM IV (PMX) 100 ML IVPB SCH ×4 (07:02→23:36)
[2018-08-19] MEDS: PANTOPRAZOLE (EC) 40 MG TAB PO SCH ×2 (07:02→17:33)
[2018-08-19 07:15] VITALS: BP 109/56; PULSE 57; RESP 16
[2018-08-19] MEDS: HYDROCODONE/APAP (5/325) TAB PO PRN ×2 (12:28→19:05)
[2018-08-19 14:00] VITALS: BP 117/74; PULSE 60; RESP 16
--- NOTE | 2018-08-19 14:04 | CONS ---
Assessment/Plan Assessment/Plan Hospital Course (Demo Recall) ID PRELIMINARY CONSULT NOTE CURRENT ABX: DAY #=>Vanco IV + Zosyn 08/19/18 0539 08/19/18 0539 Hx of Present Illness This a 42-year-old female with no significant past medical history who presented to the hospital with complaints of upper abdominal pain worse to right upper quadrant with work-up in the ED patient found to have profound elevated LFTs and a normal bilirubin. She had a gallbladder ultrasound which revealed hepatic steatosis and a dilated common bile duct measuring 10 mm in diameter. * She is now POD # 3 s/p Operation(s) Performed: * 1. 3 port laparoscopic cholecystectomy * 2. Laparoscopic liver wedge resection biopsy * 3. Laparoscopic intraoperative cholangiogram 24H INTERVAL SUMMARY * No FEVER, VSS, NAD, lethargic after pain meds IMAGING * 08/17/18 CXR: * 08/18/18 MRCP IMPRESSION: * 1. No intrahepatic biliary ductal dilation. CBD is intact with normal caliber. * 2. Status post cholecystectomy with postsurgical changes. There is no walled off fluid collection in the gallbladder fossa. * 3. Persistent hepatomegaly. * 4. Trace left pleural effusion. MICRO/OTHER * 08/18/18 BCX (-) Past Medical History Medical History: Obesity, fatty liver Past Surgical History Past Surgical Hx: Social History Alcohol Use: none Smoking Status: Never smoker Drug Use: none ROS 2 system, review was conducted and is negative except as noted in the HPI or here. PHYSICAL EXAMINATION: GENERAL: VSS, still has some pain HEENT: AT, NC, NECK: WNL CHEST: Equal chest rise bilaterally without dyspnea on observation ABD: Soft, TENDER EXTREMITIES: Warm, dry SKIN: No rash, no diaphoresis ID ASSESSMENT 42 yo F admit with: SIRS w-> s/p fever w/ persistent leukocytosis Symptomatic cholelithiasis/cholecystitis-> admit with acute right upper quadrant/epigastric pain * s/p lap thang on 08/16/18 s/p Biliary obstruction w/ elevated bili and transaminitis * -ERCP canceled per GI due to resolving bilirubin and liver values = repeat MRCP for liver issues per GI * - LFT trending downward Hepatomegaly Obesity ABX ALLERGIES: NKDA INVASIVES: PIV CURRENT ABX: DAY # =>Vanco IV + Zosyn ID RECOMMENDATIONS/PLAN: 1. Continue current ABX over the 3-day weekend, she seems to be improving 2. Report given to Dr. Sheth who is covering for Dr. Hutton and concurs Thank you - will be covering for "Yuridia Hutton ID" over the 3-day weekend. . Consultation Date/Type/Reason Admit Date/Time August 09, 2018 at 15:12 Initial Consult Date 08/09/18 Requesting Provider: AMANDA MILAN MD Date/Time of Note DATE: 08/19/18 TIME: 14:04 Exam/Review of Systems Exam Vitals Vital Signs Date Temp Pulse Resp B/P (MAP) Pulse Ox O2 O2 Flow FiO2 Time Delivery Rate 08/19/18 98.2 57 16 109/56 99 Room Air 07:15 (73) 08/16/18 8.0 20:11 Intake and Output 08/18/18 08/18/18 08/19/18 1515:00 23:00 07:00 IntakeIntake Total 810 ml 460 ml 900 ml BalanceBalance 810 ml 460 ml 900 ml Results Result Diagram: 08/19/18 0539 08/19/18 0539 Results 24hrs Laboratory Tests Test 08/19/18 05:39 White Blood Count 13.5 H Red Blood Count 4.20 Hemoglobin 11.6 L Hematocrit 35.8 L Mean Corpuscular Volume 85.2 Mean Corpuscular Hemoglobin 27.6 L Mean Corpuscular Hemoglobin Concent 32.4 Red Cell Distribution Width 13.8 Platelet Count 355 Mean Platelet Volume 10.3 Immature Granulocytes % 0.400 Neutrophils % 69.6 Lymphocytes % 21.5 Monocytes % 6.5 Eosinophils % 1.6 Basophils % 0.4 Nucleated Red Blood Cells % 0.0 Immature Granulocytes # 0.060 H Neutrophils # 9.4 H Lymphocytes # 2.9 Monocytes # 0.9 Eosinophils # 0.2 Basophils # 0.1 Nucleated Red Blood Cells # 0.0 Sodium Level 140 Potassium Level 3.8 Chloride Level 104 Carbon Dioxide Level 27 Anion Gap 9 Blood Urea Nitrogen 11 Creatinine 0.77 Est Glomerular Filtrat Rate mL/min > 60 Glucose Level 85 Calcium Level 8.8 Phosphorus Level 5.1 H Magnesium Level 2.2 Medications Medication Current Medications IV Flush (NS 3 ml) 3 ml PER PROTOCOL IV ; Start 08/09/18 at 16:00 Acetaminophen (Tylenol Tab) 650 mg Q6H PRN PO .PAIN 1-3 OR TEMP Last administered on 08/17/18 05:55; Admin Dose 650 MG; Start 08/09/18 at 16:00 Ondansetron HCl (Zofran Inj) 4 mg Q4H PRN IV NAUSEA/VOMITING Last administered on 08/14/18 06:59; Admin Dose 4 MG; Start 08/13/18 at 02:00 Polyethylene Glycol (Miralax) 17 gm DAILY PRN PO CONSTIPATION Last administered on 08/14/18 07:00; Admin Dose 17 GM; Start 08/13/18 at 11:00 Docusate Sodium (Colace) 100 mg BID PRN PO CONSTIPATION; Start 08/13/18 at 11:00 Pantoprazole (Protonix Tab) 40 mg BID@06,18 PO Last administered on 08/19/18 07:02; Admin Dose 40 MG; Start 08/14/18 at 18:00 Piperacillin Sod/ Tazobactam Sod 100 ml @ 200 mls/hr Q6 IVPB Last administered on 08/19/18 12:24; Admin Dose 200 MLS/HR; Start 08/15/18 at 18:00 Acetaminophen/ Hydrocodone Bitart ([place] (5/325)) 1 tab Q4H PRN PO MODERATE PAIN LEVEL 4-6 Last administered on 08/19/18 12:28; Admin Dose 1 TAB; Start 08/17/18 at 13:30 Vancomycin HCl 250 ml @ 125 mls/hr Q12H IVPB ; Start 08/19/18 at 14:00; Stop 08/22/18 at 03:59 JAMIE MEJIA NP August 19, 2018 14:04
[2018-08-19] MEDS: VANCOMYCIN 1 GM 250 ML IVPB SCH (14:26)
--- NOTE | 2018-08-19 15:41 | PN ---
Date/Time of Note Date/Time of Note DATE: 08/19/18 TIME: 15:40 Assessment/Plan VTE Prophylaxis Risk score (from Ns)>0 risk: 1 SCD applied (from Ns): Yes Pharmacological prophylaxis: LMWH Lines/Catheters IV [facility]from [facility] [place] Urinary Cath still in place: No Assessment/Plan Hospital Course SUBJECTIVE: Denies any abdominal pain. Denies any nausea vomiting. Tolerating oral intake. OBJECTIVE: Physical Exam General: Adequately build 42 year-old female lying in bed in no apparent distress. HEENT: Normocephalic, atraumatic. Eyes: Anicteric sclerae, conjunctivae clear. ENT: Nasal septum midline, oral mucosa moist. Neck supple, no JVD noticed. Respiratory: Bilaterally clear breath sounds. No use of accessory muscles of respiration. No adventitious breath sounds. Cardiovascular: S1, S2 heard. Regular rate and rhythm Abdomen: Soft, nontender, and nondistended. Bowel sounds positive in all 4 quadrants. Laparoscopic incision sites healing well. Genitourinary: Deferred. Extremities: No cyanosis, no clubbing, no edema. Peripheral pulses palpable. Neurologic: Cranial nerves II through XII grossly intact. The patient is awake, alert, and oriented. Skin: Normal skin turgor. No skin rashes. Labs & Vitals per chart ASSESSMENT & PLAN 42-year-old female with no significant past medical history who presented to the emergency department with complaint of right upper quadrant pain that has been going on for 3 days. In the emergency room, the patient was noticed to have some transaminitis. The patient underwent a gallbladder ultrasound that was showing a common bile duct dilatation measuring up to 10 mm and diameter with a 1.4 cm hypoechoic lesion within the right hepatic lobe. The patient subsequently underwent an MRCP that was showing hepatomegaly and cholelithiasis. Gastroenterology and general surgery consult was obtained. The patient was taken to the OR on 08/16/2018 and the patient underwent a 3-port laparoscopic cholecystectomy. 1. Acute cholecystitis. -Status post laparoscopic cholecystectomy on 08/16/2018. -Encourage incentive spirometry and frequent ambulation. -Diet as per general surgery. 2. Leukocytosis. -Continue antimicrobials as per ID. 3. Dilated common bile duct. -MRCP negative for any choledocholithiasis. 4. Obesity. -BMI more than 33. -Encouraged weight reduction. 5. Fluids, electrolytes, and nutrition. -Regular diet. 6. DVT prophylaxis. -Bilateral SCDs. 7. Plan. -Continue antimicrobials as per ID. -Await clinical improvement before discharging the patient home once cleared by general surgery. The patient was seen in collaboration with Dr. Christopher. Result Diagram: 08/19/1839 08/19/1839 Results 24hrs Laboratory Tests Test 08/19/18 05:39 White Blood Count 13.5 H Red Blood Count 4.20 Hemoglobin 11.6 L Hematocrit 35.8 L Mean Corpuscular Volume 85.2 Mean Corpuscular Hemoglobin 27.6 L Mean Corpuscular Hemoglobin Concent 32.4 Red Cell Distribution Width 13.8 Platelet Count 355 Mean Platelet Volume 10.3 Immature Granulocytes % 0.400 Neutrophils % 69.6 Lymphocytes % 21.5 Monocytes % 6.5 Eosinophils % 1.6 Basophils % 0.4 Nucleated Red Blood Cells % 0.0 Immature Granulocytes # 0.060 H Neutrophils # 9.4 H Lymphocytes # 2.9 Monocytes # 0.9 Eosinophils # 0.2 Basophils # 0.1 Nucleated Red Blood Cells # 0.0 Sodium Level 140 Potassium Level 3.8 Chloride Level 104 Carbon Dioxide Level 27 Anion Gap 9 Blood Urea Nitrogen 11 Creatinine 0.77 Est Glomerular Filtrat Rate mL/min > 60 Glucose Level 85 Calcium Level 8.8 Phosphorus Level 5.1 H Magnesium Level 2.2 Exam/Review of Systems Exam Vitals Vital Signs Date Temp Pulse Resp B/P (MAP) Pulse Ox O2 O2 Flow FiO2 Time Delivery Rate 08/19/18 99.3 60 16 117/74 98 Room Air 14:00 (88) 08/16/18 8.0 20:11 Intake and Output 08/18/18 08/18/18 08/19/18 1515:00 23:00 07:00 IntakeIntake Total 810 ml 460 ml 900 ml BalanceBalance 810 ml 460 ml 900 ml Results Results 24hrs Laboratory Tests Test 08/19/18 05:39 White Blood Count 13.5 H Red Blood Count 4.20 Hemoglobin 11.6 L Hematocrit 35.8 L Mean Corpuscular Volume 85.2 Mean Corpuscular Hemoglobin 27.6 L Mean Corpuscular Hemoglobin Concent 32.4 Red Cell Distribution Width 13.8 Platelet Count 355 Mean Platelet Volume 10.3 Immature Granulocytes % 0.400 Neutrophils % 69.6 Lymphocytes % 21.5 Monocytes % 6.5 Eosinophils % 1.6 Basophils % 0.4 Nucleated Red Blood Cells % 0.0 Immature Granulocytes # 0.060 H Neutrophils # 9.4 H Lymphocytes # 2.9 Monocytes # 0.9 Eosinophils # 0.2 Basophils # 0.1 Nucleated Red Blood Cells # 0.0 Sodium Level 140 Potassium Level 3.8 Chloride Level 104 Carbon Dioxide Level 27 Anion Gap 9 Blood Urea Nitrogen 11 Creatinine 0.77 Est Glomerular Filtrat Rate mL/min > 60 Glucose Level 85 Calcium Level 8.8 Phosphorus Level 5.1 H Magnesium Level 2.2 Medications Medication Current Medications IV Flush (NS 3 ml) 3 ml PER PROTOCOL IV ; Start 08/09/18 at 16:00 Acetaminophen (Tylenol Tab) 650 mg Q6H PRN PO .PAIN 1-3 OR TEMP Last administered on 08/17/18 05:55; Admin Dose 650 MG; Start 08/09/18 at 16:00 Ondansetron HCl (Zofran Inj) 4 mg Q4H PRN IV NAUSEA/VOMITING Last administered on 08/14/18 06:59; Admin Dose 4 MG; Start 08/13/18 at 02:00 Polyethylene Glycol (Miralax) 17 gm DAILY PRN PO CONSTIPATION Last administered on 08/14/18 07:00; Admin Dose 17 GM; Start 08/13/18 at 11:00 Docusate Sodium (Colace) 100 mg BID PRN PO CONSTIPATION; Start 08/13/18 at 11:00 Pantoprazole (Protonix Tab) 40 mg BID@06,18 PO Last administered on 08/19/18 07:02; Admin Dose 40 MG; Start 08/14/18 at 18:00 Piperacillin Sod/ Tazobactam Sod 100 ml @ 200 mls/hr Q6 IVPB Last administered on 08/19/18 12:24; Admin Dose 200 MLS/HR; Start 08/15/18 at 18:00 Acetaminophen/ Hydrocodone Bitart ([place] (5/325)) 1 tab Q4H PRN PO MODERATE PAIN LEVEL 4-6 Last administered on 08/19/18 12:28; Admin Dose 1 TAB; Start 08/17/18 at 13:30 Vancomycin HCl 250 ml @ 125 mls/hr Q12H IVPB Last administered on 08/19/18at 14:26; Admin Dose 125 MLS/HR; Start 08/19/18 at 14:00; Stop 08/22/18 at 03:59 DES SIU NP August 19, 2018 15:41
[2018-08-19 19:34] VITALS: BP 103/62; PULSE 63; RESP 20
--- NOTE | 2018-08-19 23:39 | CONS ---
DATE OF ADMISSION: 08/09/2018 DATE OF CONSULTATION: Infectious Disease consultation for Dr. Mihir Hutton. HISTORY OF PRESENT ILLNESS: The patient is a 42-year-old single female who was admitted on 08/09/2018 with a 2-day history of bilateral upper abdominal pain, nausea, diarrhea and vomiting. Vo miting was a nonbloody and nonbilious. The diarrhea was without blood or mucus. Initially, her whit e count was 6600, hemoglobin 13.2, hematocrit 41%, and platelet count 332,000. Urinalysis was kiley and cloudy with specific gravity of 1.020, +1 bilirubin, negative leukocyte esterase and negative jd teria. By 08/14/2018, the patient's white blood cell count had risen to 15,900, hematocrit 38%, hemo globin 12.2 grams and platelets 265,000. She was begun on treatment with Zosyn IV. She had a positi ve HIDA scan. On 08/16/2018, she had a liver biopsy (wedge). She had a cholecystectomy with a hyali nising fibrosis of the gallbladder wall. Grossly, there were stones present. She had a positive hep atitis A serology indicating exposure and not disease. Liver function tests at this time, he has an AST of 1035 and SGOT of 1035, alkaline phosphatase slightly elevated at 157, albumin 4.3, lipase 232 . An ultrasound revealed a common bile duct of 10 mm, steatosis of the liver, 1.5 cm hypoechoic area which turned out to be as expected, a hemangioma in the right lobe and gallbladder initially could n ot be seen. Postoperatively, the patient continues to have right upper quadrant pain, but according t o the notes, it is gradually improving. However, her white blood cell count has hovered above 10,000 , the most recent of which is 13,300 today. PHYSICAL EXAMINATION GENERAL: Reveals no acute distress, a 76-kg female. VITAL SIGNS: Stable. ABDOMEN: Tenderness in the right upper quadrant basically. INITIAL IMPRESSION: 1. Leukocytosis. 2. Cholelithiasis. 3. Hyalinising fibrosis of the gallbladder wall, status post cholecystectomy. 4. Hepatic steatosis. RECOMMENDATION: Would continue Zosyn for about 3 or 4 more days or until the white count gets to 10, 000 and add vancomycin in case there is enterococcus participating in the pathologic process. Also, would consider maybe another residual stone. Dictated By: Meg UMANA MD EC/NTS Conf#: [id number] DID#: [id number] CC: AMANDA MILAN MD;*EndCC*
[2018-08-20 02:00] VITALS: BP 104/55; PULSE 66; RESP 17
[2018-08-20] MEDS: VANCOMYCIN 1 GM 250 ML IVPB SCH ×2 (02:05→13:58)
[2018-08-20] MEDS: PANTOPRAZOLE (EC) 40 MG TAB PO SCH ×2 (05:45→18:11)
[2018-08-20] MEDS: PIPER-TAZO 3.375 GM IV (PMX) 100 ML IVPB SCH ×3 (05:45→18:11)
[2018-08-20 07:21] VITALS: BP 120/74; PULSE 58; RESP 18
[2018-08-20] MEDS: MULTIVITAMINS/MINERALS TAB PO SCH (09:47)
[2018-08-20] MEDS: HYDROCODONE/APAP (5/325) TAB PO PRN ×2 (12:46→21:36)
[2018-08-20 14:08] VITALS: BP 119/68; PULSE 74; RESP 16
--- NOTE | 2018-08-20 14:12 | PN ---
Date/Time of Note Date/Time of Note DATE: 08/20/18 TIME: 14:12 Assessment/Plan VTE Prophylaxis Risk score (from Ns)>0 risk: 1 SCD applied (from Ns): Yes Pharmacological prophylaxis: NA/contraindicated Pharm contraindication: low risk/ambulating Lines/Catheters IV Catheter Type (from [facility]): Saline Lock Urinary Cath still in place: No Assessment/Plan Hospital Course SUBJECTIVE: Denies any abdominal pain. Denies any nausea vomiting. Tolerating oral intake. OBJECTIVE: Physical Exam General: Adequately build 42 year-old female lying in bed in no apparent distress. HEENT: Normocephalic, atraumatic. Eyes: Anicteric sclerae, conjunctivae clear. ENT: Nasal septum midline, oral mucosa moist. Neck supple, no JVD noticed. Respiratory: Bilaterally clear breath sounds. No use of accessory muscles of respiration. No adventitious breath sounds. Cardiovascular: S1, S2 heard. Regular rate and rhythm Abdomen: Soft, nontender, and nondistended. Bowel sounds positive in all 4 quadrants. Laparoscopic incision sites healing well. Genitourinary: Deferred. Extremities: No cyanosis, no clubbing, no edema. Peripheral pulses palpable. Neurologic: Cranial nerves II through XII grossly intact. The patient is awake, alert, and oriented. Skin: Normal skin turgor. No skin rashes. Labs & Vitals per chart ASSESSMENT & PLAN 42-year-old female with no significant past medical history who presented to the emergency department with complaint of right upper quadrant pain that has been going on for 3 days. In the emergency room, the patient was noticed to have some transaminitis. The patient underwent a gallbladder ultrasound that was showing a common bile duct dilatation measuring up to 10 mm and diameter with a 1.4 cm hypoechoic lesion within the right hepatic lobe. The patient subsequently underwent an MRCP that was showing hepatomegaly and cholelithiasis. Gastroenterology and general surgery consult was obtained. The patient was taken to the OR on 08/16/2018 and the patient underwent a 3-port laparoscopic cholecystectomy. 1. Acute cholecystitis. -Status post laparoscopic cholecystectomy on 08/16/2018. -Encourage incentive spirometry and frequent ambulation. -Diet as per general surgery. 2. Leukocytosis. -Continue antimicrobials as per ID. 3. Dilated common bile duct. -MRCP negative for any choledocholithiasis. 4. Obesity. -BMI more than 33. -Encouraged weight reduction. 5. Fluids, electrolytes, and nutrition. -Regular diet. 6. DVT prophylaxis. -Bilateral SCDs. 7. Plan. -Continue antimicrobials as per ID. -Await clinical improvement before discharging the patient home once cleared by general surgery. The patient was seen in collaboration with Dr. Christopher. Result Diagram: 08/20/18 0603 08/20/18 0603 Results 24hrs Laboratory Tests Test 08/20/18 06:03 08/20/18 12:48 White Blood Count 12.0 H Red Blood Count 4.14 L Hemoglobin 11.6 L Hematocrit 35.1 L Mean Corpuscular Volume 84.8 Mean Corpuscular Hemoglobin 28.0 L Mean Corpuscular Hemoglobin Concent 33.0 Red Cell Distribution Width 13.3 Platelet Count 366 Mean Platelet Volume 10.0 Immature Granulocytes % 0.400 Neutrophils % 72.0 Lymphocytes % 19.4 Monocytes % 5.4 Eosinophils % 2.2 Basophils % 0.6 Nucleated Red Blood Cells % 0.0 Immature Granulocytes # 0.050 H Neutrophils # 8.6 H Lymphocytes # 2.3 Monocytes # 0.7 Eosinophils # 0.3 Basophils # 0.1 Nucleated Red Blood Cells # 0.0 Sodium Level 139 Potassium Level 4.4 Chloride Level 105 Carbon Dioxide Level 25 Anion Gap 9 Blood Urea Nitrogen 10 Creatinine 0.82 Est Glomerular Filtrat Rate mL/min > 60 Glucose Level 98 Calcium Level 9.0 Phosphorus Level 4.7 Magnesium Level 2.4 Total Bilirubin 0.4 Direct Bilirubin 0.00 Indirect Bilirubin 0.4 Aspartate Amino Transf (AST/SGOT) 56 H Alanine Aminotransferase (ALT/SGPT) 86 H Alkaline Phosphatase 142 H Total Protein 7.2 Albumin 3.6 Globulin 3.60 H Albumin/Globulin Ratio 1.00 Vancomycin Level Trough 8.3 L Exam/Review of Systems Exam Vitals Vital Signs Date Temp Pulse Resp B/P (MAP) Pulse Ox O2 O2 Flow FiO2 Time Delivery Rate 08/20/18 98.6 58 18 120/74 98 Room Air 07:21 (89) 08/16/18 8.0 20:11 Intake and Output 08/19/18 08/19/18 08/20/18 1515:00 23:00 07:00 IntakeIntake Total 860 ml 650 ml 450 ml BalanceBalance 860 ml 650 ml 450 ml Results Results 24hrs Laboratory Tests Test 08/20/18 06:03 08/20/18 12:48 White Blood Count 12.0 H Red Blood Count 4.14 L Hemoglobin 11.6 L Hematocrit 35.1 L Mean Corpuscular Volume 84.8 Mean Corpuscular Hemoglobin 28.0 L Mean Corpuscular Hemoglobin Concent 33.0 Red Cell Distribution Width 13.3 Platelet Count 366 Mean Platelet Volume 10.0 Immature Granulocytes % 0.400 Neutrophils % 72.0 Lymphocytes % 19.4 Monocytes % 5.4 Eosinophils % 2.2 Basophils % 0.6 Nucleated Red Blood Cells % 0.0 Immature Granulocytes # 0.050 H Neutrophils # 8.6 H Lymphocytes # 2.3 Monocytes # 0.7 Eosinophils # 0.3 Basophils # 0.1 Nucleated Red Blood Cells # 0.0 Sodium Level 139 Potassium Level 4.4 Chloride Level 105 Carbon Dioxide Level 25 Anion Gap 9 Blood Urea Nitrogen 10 Creatinine 0.82 Est Glomerular Filtrat Rate mL/min > 60 Glucose Level 98 Calcium Level 9.0 Phosphorus Level 4.7 Magnesium Level 2.4 Total Bilirubin 0.4 Direct Bilirubin 0.00 Indirect Bilirubin 0.4 Aspartate Amino Transf (AST/SGOT) 56 H Alanine Aminotransferase (ALT/SGPT) 86 H Alkaline Phosphatase 142 H Total Protein 7.2 Albumin 3.6 Globulin 3.60 H Albumin/Globulin Ratio 1.00 Vancomycin Level Trough 8.3 L Medications Medication Current Medications IV Flush (NS 3 ml) 3 ml PER PROTOCOL IV ; Start 08/09/18 at 16:00 Acetaminophen (Tylenol Tab) 650 mg Q6H PRN PO .PAIN 1-3 OR TEMP Last administered on 08/17/18at 05:55; Admin Dose 650 MG; Start 08/09/18 at 16:00 Ondansetron HCl (Zofran Inj) 4 mg Q4H PRN IV NAUSEA/VOMITING Last administered on 08/14/18at 06:59; Admin Dose 4 MG; Start 08/13/18 at 02:00 Polyethylene Glycol (Miralax) 17 gm DAILY PRN PO CONSTIPATION Last administered on 08/14/18at 07:00; Admin Dose 17 GM; Start 08/13/18 at 11:00 Docusate Sodium (Colace) 100 mg BID PRN PO CONSTIPATION; Start 08/13/18 at 11:00 Pantoprazole (Protonix Tab) 40 mg BID@06,18 PO Last administered on 08/20/18at 05:45; Admin Dose 40 MG; Start 08/14/18 at 18:00 Piperacillin Sod/ Tazobactam Sod 100 ml @ 200 mls/hr Q6 IVPB Last administered on 08/20/18at 12:40; Admin Dose 200 MLS/HR; Start 08/15/18 at 18:00 Acetaminophen/ Hydrocodone Bitart ([place] (5/325)) 1 tab Q4H PRN PO MODERATE PAIN LEVEL 4-6 Last administered on 08/20/18at 12:46; Admin Dose 1 TAB; Start 08/17/18 at 13:30 Vancomycin HCl 250 ml @ 125 mls/hr Q12H IVPB Last administered on 08/20/18at 13:58; Admin Dose 125 MLS/HR; Start 08/19/18 at 14:00; Stop 08/20/18 at 16:00 Multivitamins/ Minerals (Theragran-M) 1 tab DAILY PO Last administered on 08/20/18at 09:47; Admin Dose 1 TAB; Start 08/20/18 at 09:00 Vancomycin HCl 1.25 gm/Sodium Chloride 250 ml @ 83.333 mls/ hr Q12H IVPB ; Start 08/21/18 at 02:00; Stop 08/22/18 at 03:59 DES SIU NP August 20, 2018 14:12
--- NOTE | 2018-08-20 15:12 | PN ---
Date/Time of Note Date/Time of Note DATE: 08/20/18 TIME: 15:09 Assessment/Plan VTE Prophylaxis Risk score (from Ns)>0 risk: 1 SCD applied (from Nsg): Yes Pharmacological prophylaxis: other (scds) Lines/Catheters [facility] Type [facility]from [facility] Saline Lock Urinary Cath still in place: No Assessment/Plan Hospital Course Assessment: Upper abdominal pain with associated nausea/vomiting -MRCP- negative for choledocholithiasis -mild prominence of CBD -Repeat MRCP- No intrahepatic biliary ductal dilation. CBD is intact with normal caliber. Status post cholecystectomy with postsurgical changes. There is no walled off fluid collection in the gallbladder fossa. Persistent hepatomegaly. Trace left pleural effusion. Profoundly elevated LFTs on admission - improving -Hep A/B/C- negative -Auto-immune work-up negative Hyperbilirubinemia - resolved Cholelithiasis -S/p cholecystectomy 08/16/18- with liver wedge bx Hepatic steatosis 1.4 cm hypoechoic lesion within the right hepatic lobe -Ct with liver protocol - Benign hepatic hemangioma is identified Leukocytosis-ID following Fever noted 08/14 - resolved Plan: Diet per surgery ABX per ID Continue to monitor labs- unlikely retained stone given results of MRCP Patient seen in collaboration with Dr. Gómez Subjective/Free text: Course reviewed with nursing staff Patient interviewed and examined All labs, imaging and other results reviewed Pt feels well, no c/o abd pain ,nausea or vomiting Pt states she is ambulating frequently. passing flatus and having BM's without difficulty Min increase in LFTs- with increase in bilirubin- MRCP reviewed from the PHYSICAL EXAMINATION: GENERAL: Well developed, obese , well nourished, alert & oriented x 3, in no acute distress SKIN: Surgical incisions HEAD: Normocephalic, atraumatic, no tenderness. EYES: Pupils equal reactive to light, no discharge. EARS/NOSE AND THROAT: Ears normal, nose normal. NECK: Supple, no masses. CHEST: Inspection within normal limits. CARDIOVASCULAR: Heart: Regular rate and rhythm RESPIRATORY: Lungs clear to auscultation GASTROINTESTINAL AND LIVER: Abdomen: Soft, right upper quadrant abdominal pain/epigastric pain, non-distended, no hernias, no masses, no organomegaly, no rebound tenderness, normoactive bowel sounds. Rectal: Deferred. EXTREMITIES: No cyanosis, clubbing or edema. Result Diagram: 08/20/18 0603 08/20/18 0603 Results 24hrs Laboratory Tests Test 08/20/18 06:03 08/20/18 12:48 White Blood Count 12.0 H Red Blood Count 4.14 L Hemoglobin 11.6 L Hematocrit 35.1 L Mean Corpuscular Volume 84.8 Mean Corpuscular Hemoglobin 28.0 L Mean Corpuscular Hemoglobin Concent 33.0 Red Cell Distribution Width 13.3 Platelet Count 366 Mean Platelet Volume 10.0 Immature Granulocytes % 0.400 Neutrophils % 72.0 Lymphocytes % 19.4 Monocytes % 5.4 Eosinophils % 2.2 Basophils % 0.6 Nucleated Red Blood Cells % 0.0 Immature Granulocytes # 0.050 H Neutrophils # 8.6 H Lymphocytes # 2.3 Monocytes # 0.7 Eosinophils # 0.3 Basophils # 0.1 Nucleated Red Blood Cells # 0.0 Sodium Level 139 Potassium Level 4.4 Chloride Level 105 Carbon Dioxide Level 25 Anion Gap 9 Blood Urea Nitrogen 10 Creatinine 0.82 Est Glomerular Filtrat Rate mL/min > 60 Glucose Level 98 Calcium Level 9.0 Phosphorus Level 4.7 Magnesium Level 2.4 Total Bilirubin 0.4 Direct Bilirubin 0.00 Indirect Bilirubin 0.4 Aspartate Amino Transf (AST/SGOT) 56 H Alanine Aminotransferase (ALT/SGPT) 86 H Alkaline Phosphatase 142 H Total Protein 7.2 Albumin 3.6 Globulin 3.60 H Albumin/Globulin Ratio 1.00 Vancomycin Level Trough 8.3 L Exam/Review of Systems Exam Vitals Vital Signs Date Temp Pulse Resp B/P (MAP) Pulse Ox O2 O2 Flow FiO2 Time Delivery Rate 08/20/18 99.3 74 16 119/68 99 Room Air 14:08 (85) 08/16/18 8.0 20:11 Intake and Output 08/19/18 08/19/18 08/20/18 1515:00 23:00 07:00 IntakeIntake Total 860 ml 650 ml 450 ml BalanceBalance 860 ml 650 ml 450 ml Results Results 24hrs Laboratory Tests Test 08/20/18 06:03 08/20/18 12:48 White Blood Count 12.0 H Red Blood Count 4.14 L Hemoglobin 11.6 L Hematocrit 35.1 L Mean Corpuscular Volume 84.8 Mean Corpuscular Hemoglobin 28.0 L Mean Corpuscular Hemoglobin Concent 33.0 Red Cell Distribution Width 13.3 Platelet Count 366 Mean Platelet Volume 10.0 Immature Granulocytes % 0.400 Neutrophils % 72.0 Lymphocytes % 19.4 Monocytes % 5.4 Eosinophils % 2.2 Basophils % 0.6 Nucleated Red Blood Cells % 0.0 Immature Granulocytes # 0.050 H Neutrophils # 8.6 H Lymphocytes # 2.3 Monocytes # 0.7 Eosinophils # 0.3 Basophils # 0.1 Nucleated Red Blood Cells # 0.0 Sodium Level 139 Potassium Level 4.4 Chloride Level 105 Carbon Dioxide Level 25 Anion Gap 9 Blood Urea Nitrogen 10 Creatinine 0.82 Est Glomerular Filtrat Rate mL/min > 60 Glucose Level 98 Calcium Level 9.0 Phosphorus Level 4.7 Magnesium Level 2.4 Total Bilirubin 0.4 Direct Bilirubin 0.00 Indirect Bilirubin 0.4 Aspartate Amino Transf (AST/SGOT) 56 H Alanine Aminotransferase (ALT/SGPT) 86 H Alkaline Phosphatase 142 H Total Protein 7.2 Albumin 3.6 Globulin 3.60 H Albumin/Globulin Ratio 1.00 Vancomycin Level Trough 8.3 L Medications Medication Current Medications IV Flush (NS 3 ml) 3 ml PER PROTOCOL IV ; Start 08/09/18 at 16:00 Acetaminophen (Tylenol Tab) 650 mg Q6H PRN PO .PAIN 1-3 OR TEMP Last administered on 08/17/18 05:55; Admin Dose 650 MG; Start 08/09/18 at 16:00 Ondansetron HCl (Zofran Inj) 4 mg Q4H PRN IV NAUSEA/VOMITING Last administered on 08/14/18 06:59; Admin Dose 4 MG; Start 08/13/18 at 02:00 Polyethylene Glycol (Miralax) 17 gm DAILY PRN PO CONSTIPATION Last administered on 08/14/18 07:00; Admin Dose 17 GM; Start 08/13/18 at 11:00 Docusate Sodium (Colace) 100 mg BID PRN PO CONSTIPATION; Start 08/13/18 at 11:00 Pantoprazole (Protonix Tab) 40 mg BID@06,18 PO Last administered on 08/20/18 05:45; Admin Dose 40 MG; Start 08/14/18 at 18:00 Piperacillin Sod/ Tazobactam Sod 100 ml @ 200 mls/hr Q6 IVPB Last administered on 08/20/18 12:40; Admin Dose 200 MLS/HR; Start 08/15/18 at 18:00 Acetaminophen/ Hydrocodone Bitart ([place] (5/325)) 1 tab Q4H PRN PO MODERATE PAIN LEVEL 4-6 Last administered on 08/20/18at 12:46; Admin Dose 1 TAB; Start 08/17/18 at 13:30 Vancomycin HCl 250 ml @ 125 mls/hr Q12H IVPB Last administered on 08/20/18at 13:58; Admin Dose 125 MLS/HR; Start 08/19/18 at 14:00; Stop 08/20/18 at 16:00 Multivitamins/ Minerals (Theragran-M) 1 tab DAILY PO Last administered on 08/20/18at 09:47; Admin Dose 1 TAB; Start 08/20/18 at 09:00 Vancomycin HCl 1.25 gm/Sodium Chloride 250 ml @ 83.333 mls/ hr Q12H IVPB ; Start 08/21/18 at 02:00; Stop 08/22/18 at 03:59 BILL APONTE August 20, 2018 15:12
--- NOTE | 2018-08-20 18:31 | CONS ---
Assessment/Plan Assessment/Plan Hospital Course (Demo Recall) ID PRELIMINARY CONSULT NOTE CURRENT ABX: DAY #=>Vanco IV + Zosyn 08/20/18 0603 08/20/18 0603 24H INTERVAL SUMMARY * Feeling much better, bowels are working, she has been ambulating in halls * Low grade temps persisting @ 99.3 today, WBC still had not normalized, VSS IMAGING * 08/17/18 CXR: * 08/18/18 MRCP IMPRESSION: * 1. No intrahepatic biliary ductal dilation. CBD is intact with normal caliber. * 2. Status post cholecystectomy with postsurgical changes. There is no walled off fluid collection in the gallbladder fossa. * 3. Persistent hepatomegaly. * 4. Trace left pleural effusion. MICRO/OTHER * 08/18/18 BCX (-) Hx of Present Illness This a 42-year-old female with no significant past medical history who presented to the hospital with complaints of upper abdominal pain worse to right upper quadrant with work-up in the ED patient found to have profound elevated LFTs and a normal bilirubin. She had a gallbladder ultrasound which revealed hepatic steatosis and a dilated common bile duct measuring 10 mm in diameter. * She is now POD # 4 s/p Operation(s) Performed: * 1. 3 port laparoscopic cholecystectomy * 2. Laparoscopic liver wedge resection biopsy * 3. Laparoscopic intraoperative cholangiogram Past Medical History Medical History: Obesity, fatty liver Past Surgical History Past Surgical Hx: Social History Alcohol Use: none Smoking Status: Never smoker Drug Use: none ROS 2 system, review was conducted and is negative except as noted in the HPI or here. PHYSICAL EXAMINATION: GENERAL: VSS, still has some pain HEENT: AT, NC, NECK: WNL CHEST: Equal chest rise bilaterally without dyspnea on observation ABD: Soft, TENDER EXTREMITIES: Warm, dry SKIN: No rash, no diaphoresis ID ASSESSMENT 42 yo F admit with: SIRS w-> s/p fever w/ persistent leukocytosis Symptomatic cholelithiasis/cholecystitis-> admit with acute right upper quadrant/epigastric pain * s/p lap thang on 08/16/18 s/p Biliary obstruction w/ elevated bili and transaminitis * - LFT trending downward Hepatomegaly Obesity ABX ALLERGIES: NKDA INVASIVES: PIV CURRENT ABX: DAY # =>Vanco IV + Zosyn ID RECOMMENDATIONS/PLAN: 1. Continue current ABX over the 3-day weekend, she seems to be improving -- still w/low grade temps and leukocytosis 2. Await clinical improvement before discharging the patient home once cleared by general surgery. * When cleared by surgery/primary anticipate DC on Augmentin 875mg PO x 5 days to OP follow up w/surgery . Consultation Date/Type/Reason Admit Date/Time August 09, 2018 at 15:12 Initial Consult Date 08/09/18 Requesting Provider: AMANDA MILAN MD Date/Time of Note DATE: 08/20/18 TIME: 18:26 Exam/Review of Systems Exam Vitals Vital Signs Date Temp Pulse Resp B/P (MAP) Pulse Ox O2 O2 Flow FiO2 Time Delivery Rate 08/20/18 99.3 74 16 119/68 99 Room Air 14:08 (85) 08/16/18 8.0 20:11 Intake and Output 08/19/18 08/19/18 08/20/18 1515:00 23:00 07:00 IntakeIntake Total 860 ml 650 ml 450 ml BalanceBalance 860 ml 650 ml 450 ml Results Result Diagram: 08/20/18 0603 08/20/18 0603 Results 24hrs Laboratory Tests Test 08/20/18 06:03 08/20/18 12:48 White Blood Count 12.0 H Red Blood Count 4.14 L Hemoglobin 11.6 L Hematocrit 35.1 L Mean Corpuscular Volume 84.8 Mean Corpuscular Hemoglobin 28.0 L Mean Corpuscular Hemoglobin Concent 33.0 Red Cell Distribution Width 13.3 Platelet Count 366 Mean Platelet Volume 10.0 Immature Granulocytes % 0.400 Neutrophils % 72.0 Lymphocytes % 19.4 Monocytes % 5.4 Eosinophils % 2.2 Basophils % 0.6 Nucleated Red Blood Cells % 0.0 Immature Granulocytes # 0.050 H Neutrophils # 8.6 H Lymphocytes # 2.3 Monocytes # 0.7 Eosinophils # 0.3 Basophils # 0.1 Nucleated Red Blood Cells # 0.0 Sodium Level 139 Potassium Level 4.4 Chloride Level 105 Carbon Dioxide Level 25 Anion Gap 9 Blood Urea Nitrogen 10 Creatinine 0.82 Est Glomerular Filtrat Rate mL/min > 60 Glucose Level 98 Calcium Level 9.0 Phosphorus Level 4.7 Magnesium Level 2.4 Total Bilirubin 0.4 Direct Bilirubin 0.00 Indirect Bilirubin 0.4 Aspartate Amino Transf (AST/SGOT) 56 H Alanine Aminotransferase (ALT/SGPT) 86 H Alkaline Phosphatase 142 H Total Protein 7.2 Albumin 3.6 Globulin 3.60 H Albumin/Globulin Ratio 1.00 Vancomycin Level Trough 8.3 L Medications Medication Current Medications IV Flush (NS 3 ml) 3 ml PER PROTOCOL IV ; Start 08/09/18 at 16:00 Acetaminophen (Tylenol Tab) 650 mg Q6H PRN PO .PAIN 1-3 OR TEMP Last administered on 08/17/18 05:55; Admin Dose 650 MG; Start 08/09/18 at 16:00 Ondansetron HCl (Zofran Inj) 4 mg Q4H PRN IV NAUSEA/VOMITING Last administered on 08/14/18 06:59; Admin Dose 4 MG; Start 08/13/18 at 02:00 Polyethylene Glycol (Miralax) 17 gm DAILY PRN PO CONSTIPATION Last administered on 08/14/18 07:00; Admin Dose 17 GM; Start 08/13/18 at 11:00 Docusate Sodium (Colace) 100 mg BID PRN PO CONSTIPATION; Start 08/13/18 at 11:00 Pantoprazole (Protonix Tab) 40 mg BID@06,18 PO Last administered on 08/20/18 18:11; Admin Dose 40 MG; Start 08/14/18 at 18:00 Piperacillin Sod/ Tazobactam Sod 100 ml @ 200 mls/hr Q6 IVPB Last administered on 08/20/18 18:11; Admin Dose 200 MLS/HR; Start 08/15/18 at 18:00 Acetaminophen/ Hydrocodone Bitart ([place] (5/325)) 1 tab Q4H PRN PO MODERATE PAIN LEVEL 4-6 Last administered on 08/20/18 12:46; Admin Dose 1 TAB; Start 08/17/18 at 13:30 Multivitamins/ Minerals (Theragran-M) 1 tab DAILY PO Last administered on 08/20/18 09:47; Admin Dose 1 TAB; Start 08/20/18 at 09:00 Vancomycin HCl 1.25 gm/Sodium Chloride 250 ml @ 83.333 mls/ hr Q12H IVPB ; Start 08/21/18 at 02:00; Stop 08/22/18 at 03:59 JAMIE MEJIA NP August 20, 2018 18:31
[2018-08-20 20:00] VITALS: BP 123/75; PULSE 63; RESP 18
[2018-08-21] MEDS: PIPER-TAZO 3.375 GM IV (PMX) 100 ML IVPB SCH ×4 (01:22→17:45)
[2018-08-21 02:00] VITALS: BP 110/61; PULSE 98; RESP 18
[2018-08-21] MEDS: VANCOMYCIN HCL 1.25 GM in SOD CHLORIDE 0.9% 250 ML IVPB SCH ×2 (02:40→14:27)
[2018-08-21] MEDS: PANTOPRAZOLE (EC) 40 MG TAB PO SCH ×2 (06:51→17:45)
[2018-08-21 08:00] VITALS: BP 105/75; PULSE 68; RESP 17
[2018-08-21] MEDS: MULTIVITAMINS/MINERALS TAB PO SCH (09:28)
--- NOTE | 2018-08-21 10:09 | PN ---
Date/Time of Note Date/Time of Note DATE: 08/21/18 TIME: 10:07 Assessment/Plan VTE Prophylaxis Risk score (from Ns)>0 risk: 2 SCD applied (from Ns): Yes Pharmacological prophylaxis: other (scds) Lines/Catheters [facility] Saline Lock Urinary Cath still in place: No Assessment/Plan Hospital Course Assessment: Upper abdominal pain with associated nausea/vomiting -MRCP- negative for choledocholithiasis -mild prominence of CBD -Repeat MRCP- No intrahepatic biliary ductal dilation. CBD is intact with normal caliber. Status post cholecystectomy with postsurgical changes. There is no walled off fluid collection in the gallbladder fossa. Persistent hepatomegaly. Trace left pleural effusion. Profoundly elevated LFTs on admission - improving- near normal -Hep A/B/C- negative -Auto-immune work-up negative Hyperbilirubinemia - resolved Cholelithiasis -S/p cholecystectomy 08/16/18- with liver wedge bx Hepatic steatosis 1.4 cm hypoechoic lesion within the right hepatic lobe -Ct with liver protocol - Benign hepatic hemangioma is identified Leukocytosis-ID following - resolved Fever noted 08/14 - resolved Plan: Pt appears stable for out-pt management from GI point of view. GI will sign off at this time, but will be available upon reconsult as needed Continue to monitor labs- unlikely retained stone given results of MRCP and non- obstructive pattern of LFTs- which currently are improving Patient seen in collaboration with Dr. Gómez Subjective/Free text: Course reviewed with nursing staff Patient interviewed and examined All labs, imaging and other results reviewed All labs have improved, Pt feels well no over night events, no c/o n/v or abd pain PHYSICAL EXAMINATION: GENERAL: Well developed, obese , well nourished, alert & oriented x 3, in no acute distress SKIN: Surgical incisions HEAD: Normocephalic, atraumatic, no tenderness. EYES: Pupils equal reactive to light, no discharge. EARS/NOSE AND THROAT: Ears normal, nose normal. NECK: Supple, no masses. CHEST: Inspection within normal limits. CARDIOVASCULAR: Heart: Regular rate and rhythm RESPIRATORY: Lungs clear to auscultation GASTROINTESTINAL AND LIVER: Abdomen: Soft, right upper quadrant abdominal pain/epigastric pain, non-distended, no hernias, no masses, no organomegaly, no rebound tenderness, normoactive bowel sounds. Rectal: Deferred. EXTREMITIES: No cyanosis, clubbing or edema. Result Diagram: 08/21/1837 08/21/1837 Results 24hrs Laboratory Tests Test 08/20/18 12:48 08/21/18 05:37 Vancomycin Level Trough 8.3 L White Blood Count 9.9 Red Blood Count 4.32 Hemoglobin 11.7 L Hematocrit 36.7 L Mean Corpuscular Volume 85.0 Mean Corpuscular Hemoglobin 27.1 L Mean Corpuscular Hemoglobin Concent 31.9 L Red Cell Distribution Width 13.1 Platelet Count 399 Mean Platelet Volume 9.8 Immature Granulocytes % 0.400 Neutrophils % 63.7 Lymphocytes % 27.8 Monocytes % 5.1 Eosinophils % 2.5 Basophils % 0.5 Nucleated Red Blood Cells % 0.0 Immature Granulocytes # 0.040 H Neutrophils # 6.3 Lymphocytes # 2.8 Monocytes # 0.5 Eosinophils # 0.3 Basophils # 0.1 Nucleated Red Blood Cells # 0.0 Sodium Level 140 Potassium Level 4.3 Chloride Level 105 Carbon Dioxide Level 27 Anion Gap 8 Blood Urea Nitrogen 11 Creatinine 0.90 Est Glomerular Filtrat Rate mL/min > 60 Glucose Level 96 Calcium Level 9.2 Phosphorus Level 4.5 Magnesium Level 2.4 Total Bilirubin 0.4 Direct Bilirubin 0.00 Indirect Bilirubin 0.4 Aspartate Amino Transf (AST/SGOT) 38 Alanine Aminotransferase (ALT/SGPT) 72 H Alkaline Phosphatase 135 H Total Protein 7.2 Albumin 3.7 Globulin 3.50 H Albumin/Globulin Ratio 1.05 Exam/Review of Systems Exam Vitals Vital Signs Date Temp Pulse Resp B/P (MAP) Pulse Ox O2 O2 Flow FiO2 Time Delivery Rate 08/21/18 99.1 68 17 105/75 97 Room Air 08:00 (85) Intake and Output 08/20/18 08/20/18 08/21/18 1515:00 23:00 07:00 IntakeIntake Total 860 ml 650 ml 1150 ml BalanceBalance 860 ml 650 ml 1150 ml Results Results 24hrs Laboratory Tests Test 08/20/18 12:48 08/21/18 05:37 Vancomycin Level Trough 8.3 L White Blood Count 9.9 Red Blood Count 4.32 Hemoglobin 11.7 L Hematocrit 36.7 L Mean Corpuscular Volume 85.0 Mean Corpuscular Hemoglobin 27.1 L Mean Corpuscular Hemoglobin Concent 31.9 L Red Cell Distribution Width 13.1 Platelet Count 399 Mean Platelet Volume 9.8 Immature Granulocytes % 0.400 Neutrophils % 63.7 Lymphocytes % 27.8 Monocytes % 5.1 Eosinophils % 2.5 Basophils % 0.5 Nucleated Red Blood Cells % 0.0 Immature Granulocytes # 0.040 H Neutrophils # 6.3 Lymphocytes # 2.8 Monocytes # 0.5 Eosinophils # 0.3 Basophils # 0.1 Nucleated Red Blood Cells # 0.0 Sodium Level 140 Potassium Level 4.3 Chloride Level 105 Carbon Dioxide Level 27 Anion Gap 8 Blood Urea Nitrogen 11 Creatinine 0.90 Est Glomerular Filtrat Rate mL/min > 60 Glucose Level 96 Calcium Level 9.2 Phosphorus Level 4.5 Magnesium Level 2.4 Total Bilirubin 0.4 Direct Bilirubin 0.00 Indirect Bilirubin 0.4 Aspartate Amino Transf (AST/SGOT) 38 Alanine Aminotransferase (ALT/SGPT) 72 H Alkaline Phosphatase 135 H Total Protein 7.2 Albumin 3.7 Globulin 3.50 H Albumin/Globulin Ratio 1.05 Medications Medication Current Medications IV Flush (NS 3 ml) 3 ml PER PROTOCOL IV ; Start 08/09/18 at 16:00 Acetaminophen (Tylenol Tab) 650 mg Q6H PRN PO .PAIN 1-3 OR TEMP Last administered on 08/17/18 05:55; Admin Dose 650 MG; Start 08/09/18 at 16:00 Ondansetron HCl (Zofran Inj) 4 mg Q4H PRN IV NAUSEA/VOMITING Last administered on 08/14/18 06:59; Admin Dose 4 MG; Start 08/13/18 at 02:00 Polyethylene Glycol (Miralax) 17 gm DAILY PRN PO CONSTIPATION Last administered on 08/14/18at 07:00; Admin Dose 17 GM; Start 08/13/18 at 11:00 Docusate Sodium (Colace) 100 mg BID PRN PO CONSTIPATION; Start 08/13/18 at 11:00 Pantoprazole (Protonix Tab) 40 mg BID@06,18 PO Last administered on 08/21/18 06:51; Admin Dose 40 MG; Start 08/14/18 at 18:00 Piperacillin Sod/ Tazobactam Sod 100 ml @ 200 mls/hr Q6 IVPB Last administered on 08/21/18 06:51; Admin Dose 200 MLS/HR; Start 08/15/18 at 18:00 Acetaminophen/ Hydrocodone Bitart ([place] (5/325)) 1 tab Q4H PRN PO MODERATE PAIN LEVEL 4-6 Last administered on 08/20/18at 21:36; Admin Dose 1 TAB; Start 08/17/18 at 13:30 Multivitamins/ Minerals (Theragran-M) 1 tab DAILY PO Last administered on 08/21/18at 09:28; Admin Dose 1 TAB; Start 08/20/18 at 09:00 Vancomycin HCl 1.25 gm/Sodium Chloride 250 ml @ 83.333 mls/ hr Q12H IVPB Last administered on 08/21/18at 02:40; Admin Dose 83.333 MLS/HR; Start 08/21/18 at 02:00; Stop 08/22/18 at 03:59 BILL APONTE August 21, 2018 10:09
[2018-08-21] MEDS: HYDROCODONE/APAP (5/325) TAB PO PRN ×2 (12:26→20:54)
[2018-08-21 14:00] VITALS: BP 110/71; PULSE 68; RESP 16
--- NOTE | 2018-08-21 15:03 | PN ---
Date/Time of Note Date/Time of Note DATE: 08/21/18 TIME: 15:02 Assessment/Plan VTE Prophylaxis Risk score (from Ns)>0 risk: 2 SCD applied (from Ns): Yes Pharmacological prophylaxis: NA/contraindicated Pharm contraindication: low risk/ambulating Lines/Catheters [facility] Saline Lock Urinary Cath still in place: No Assessment/Plan Hospital Course SUBJECTIVE: Denies any abdominal pain. Denies any nausea vomiting. Tolerating oral intake. OBJECTIVE: Physical Exam General: Adequately build 42 year-old female lying in bed in no apparent distress. HEENT: Normocephalic, atraumatic. Eyes: Anicteric sclerae, conjunctivae clear. ENT: Nasal septum midline, oral mucosa moist. Neck supple, no JVD noticed. Respiratory: Bilaterally clear breath sounds. No use of accessory muscles of respiration. No adventitious breath sounds. Cardiovascular: S1, S2 heard. Regular rate and rhythm Abdomen: Soft, nontender, and nondistended. Bowel sounds positive in all 4 quadrants. Laparoscopic incision sites healing well. Genitourinary: Deferred. Extremities: No cyanosis, no clubbing, no edema. Peripheral pulses palpable. Neurologic: Cranial nerves II through XII grossly intact. The patient is awake, alert, and oriented. Skin: Normal skin turgor. No skin rashes. Labs & Vitals per chart ASSESSMENT & PLAN 42-year-old female with no significant past medical history who presented to the emergency department with complaint of right upper quadrant pain that has been going on for 3 days. In the emergency room, the patient was noticed to have some transaminitis. The patient underwent a gallbladder ultrasound that was showing a common bile duct dilatation measuring up to 10 mm and diameter with a 1.4 cm hypoechoic lesion within the right hepatic lobe. The patient subsequently underwent an MRCP that was showing hepatomegaly and cholelithiasis. Gastroenterology and general surgery consult was obtained. The patient was taken to the OR on 08/16/2018 and the patient underwent a 3-port laparoscopic cholecystectomy. 1. Acute cholecystitis. -Status post laparoscopic cholecystectomy on 08/16/2018. -Encourage incentive spirometry and frequent ambulation. -Diet as per general surgery. 2. Leukocytosis. -Resolved. -Continue antimicrobials as per ID. 3. Dilated common bile duct. -MRCP negative for any choledocholithiasis. 4. Obesity. -BMI more than 33. -Encouraged weight reduction. 5. Fluids, electrolytes, and nutrition. -Regular diet. 6. DVT prophylaxis. -Bilateral SCDs. 7. Plan. -Continue antimicrobials as per ID. -Await clinical improvement before discharging the patient home once cleared by general surgery. The patient was seen in collaboration with Dr. Christopher. Result Diagram: 08/21/1837 08/21/18 0537 Results 24hrs Laboratory Tests Test 08/21/18 05:37 White Blood Count 9.9 Red Blood Count 4.32 Hemoglobin 11.7 L Hematocrit 36.7 L Mean Corpuscular Volume 85.0 Mean Corpuscular Hemoglobin 27.1 L Mean Corpuscular Hemoglobin Concent 31.9 L Red Cell Distribution Width 13.1 Platelet Count 399 Mean Platelet Volume 9.8 Immature Granulocytes % 0.400 Neutrophils % 63.7 Lymphocytes % 27.8 Monocytes % 5.1 Eosinophils % 2.5 Basophils % 0.5 Nucleated Red Blood Cells % 0.0 Immature Granulocytes # 0.040 H Neutrophils # 6.3 Lymphocytes # 2.8 Monocytes # 0.5 Eosinophils # 0.3 Basophils # 0.1 Nucleated Red Blood Cells # 0.0 Sodium Level 140 Potassium Level 4.3 Chloride Level 105 Carbon Dioxide Level 27 Anion Gap 8 Blood Urea Nitrogen 11 Creatinine 0.90 Est Glomerular Filtrat Rate mL/min > 60 Glucose Level 96 Calcium Level 9.2 Phosphorus Level 4.5 Magnesium Level 2.4 Total Bilirubin 0.4 Direct Bilirubin 0.00 Indirect Bilirubin 0.4 Aspartate Amino Transf (AST/SGOT) 38 Alanine Aminotransferase (ALT/SGPT) 72 H Alkaline Phosphatase 135 H Total Protein 7.2 Albumin 3.7 Globulin 3.50 H Albumin/Globulin Ratio 1.05 Exam/Review of Systems Exam Vitals Vital Signs Date Temp Pulse Resp B/P (MAP) Pulse Ox O2 O2 Flow FiO2 Time Delivery Rate 08/21/18 99.1 68 17 105/75 97 Room Air 08:00 (85) Intake and Output 08/20/18 08/20/18 08/21/18 1515:00 23:00 07:00 IntakeIntake Total 860 ml 650 ml 1150 ml BalanceBalance 860 ml 650 ml 1150 ml Results Results 24hrs Laboratory Tests Test 08/21/18 05:37 White Blood Count 9.9 Red Blood Count 4.32 Hemoglobin 11.7 L Hematocrit 36.7 L Mean Corpuscular Volume 85.0 Mean Corpuscular Hemoglobin 27.1 L Mean Corpuscular Hemoglobin Concent 31.9 L Red Cell Distribution Width 13.1 Platelet Count 399 Mean Platelet Volume 9.8 Immature Granulocytes % 0.400 Neutrophils % 63.7 Lymphocytes % 27.8 Monocytes % 5.1 Eosinophils % 2.5 Basophils % 0.5 Nucleated Red Blood Cells % 0.0 Immature Granulocytes # 0.040 H Neutrophils # 6.3 Lymphocytes # 2.8 Monocytes # 0.5 Eosinophils # 0.3 Basophils # 0.1 Nucleated Red Blood Cells # 0.0 Sodium Level 140 Potassium Level 4.3 Chloride Level 105 Carbon Dioxide Level 27 Anion Gap 8 Blood Urea Nitrogen 11 Creatinine 0.90 Est Glomerular Filtrat Rate mL/min > 60 Glucose Level 96 Calcium Level 9.2 Phosphorus Level 4.5 Magnesium Level 2.4 Total Bilirubin 0.4 Direct Bilirubin 0.00 Indirect Bilirubin 0.4 Aspartate Amino Transf (AST/SGOT) 38 Alanine Aminotransferase (ALT/SGPT) 72 H Alkaline Phosphatase 135 H Total Protein 7.2 Albumin 3.7 Globulin 3.50 H Albumin/Globulin Ratio 1.05 Medications Medication Current Medications IV Flush (NS 3 ml) 3 ml PER PROTOCOL IV ; Start 08/09/18 at 16:00 Acetaminophen (Tylenol Tab) 650 mg Q6H PRN PO .PAIN 1-3 OR TEMP Last administered on 08/17/18at 05:55; Admin Dose 650 MG; Start 08/09/18 at 16:00 Ondansetron HCl (Zofran Inj) 4 mg Q4H PRN IV NAUSEA/VOMITING Last administered on 08/14/18at 06:59; Admin Dose 4 MG; Start 08/13/18 at 02:00 Polyethylene Glycol (Miralax) 17 gm DAILY PRN PO CONSTIPATION Last administered on 08/14/18at 07:00; Admin Dose 17 GM; Start 08/13/18 at 11:00 Docusate Sodium (Colace) 100 mg BID PRN PO CONSTIPATION; Start 08/13/18 at 11:00 Pantoprazole (Protonix Tab) 40 mg BID@06,18 PO Last administered on 08/21/18at 06:51; Admin Dose 40 MG; Start 08/14/18 at 18:00 Piperacillin Sod/ Tazobactam Sod 100 ml @ 200 mls/hr Q6 IVPB Last administered on 08/21/18 12:16; Admin Dose 200 MLS/HR; Start 08/15/18 at 18:00 Acetaminophen/ Hydrocodone Bitart ([place] (5/325)) 1 tab Q4H PRN PO MODERATE PAIN LEVEL 4-6 Last administered on 08/21/18 12:26; Admin Dose 1 TAB; Start 08/17/18 at 13:30 Multivitamins/ Minerals (Theragran-M) 1 tab DAILY PO Last administered on 08/21/18at 09:28; Admin Dose 1 TAB; Start 08/20/18 at 09:00 Vancomycin HCl 1.25 gm/Sodium Chloride 250 ml @ 83.333 mls/ hr Q12H IVPB Last administered on 08/21/18 14:27; Admin Dose 83.333 MLS/HR; Start 08/21/18 at 02:00; Stop 08/22/18 at 03:59 DES SIU NP August 21, 2018 15:03
--- NOTE | 2018-08-21 16:34 | CONS ---
Assessment/Plan Assessment/Plan Hospital Course (Demo Recall) ID PRELIMINARY CONSULT NOTE CURRENT ABX: DAY #=>Vanco IV + Zosyn 08/21/18 0537 08/21/18 0537 24H INTERVAL SUMMARY * CLINICAL STABLE -- WBC NORMALIZED TODAY == Feeling much better, bowels are working, she has been ambulating in halls * Low grade temps IMAGING * 08/17/18 CXR: * 08/18/18 MRCP IMPRESSION: * 1. No intrahepatic biliary ductal dilation. CBD is intact with normal caliber. * 2. Status post cholecystectomy with postsurgical changes. There is no walled off fluid collection in the gallbladder fossa. * 3. Persistent hepatomegaly. * 4. Trace left pleural effusion. MICRO/OTHER * 08/18/18 BCX (-) Hx of Present Illness This a 42-year-old female with no significant past medical history who presented to the hospital with complaints of upper abdominal pain worse to right upper quadrant with work-up in the ED patient found to have profound elevated LFTs and a normal bilirubin. She had a gallbladder ultrasound which revealed hepatic steatosis and a dilated common bile duct measuring 10 mm in diameter. * She is now POD # 4 s/p Operation(s) Performed: * 1. 3 port laparoscopic cholecystectomy * 2. Laparoscopic liver wedge resection biopsy * 3. Laparoscopic intraoperative cholangiogram Past Medical History Medical History: Obesity, fatty liver Past Surgical History Past Surgical Hx: Social History Alcohol Use: none Smoking Status: Never smoker Drug Use: none ROS 2 system, review was conducted and is negative except as noted in the HPI or here. PHYSICAL EXAMINATION: GENERAL: VSS, still has some pain HEENT: AT, NC, NECK: WNL CHEST: Equal chest rise bilaterally without dyspnea on observation ABD: Soft, TENDER EXTREMITIES: Warm, dry SKIN: No rash, no diaphoresis ID ASSESSMENT 42 yo F admit with: SIRS w-> s/p fever w/ persistent leukocytosis Symptomatic cholelithiasis/cholecystitis-> admit with acute right upper quadrant/epigastric pain * s/p lap thang on 08/16/18 s/p Biliary obstruction w/ elevated bili and transaminitis * - LFT trending downward Hepatomegaly Obesity ABX ALLERGIES: NKDA INVASIVES: PIV CURRENT ABX: DAY # =>Vanco IV + Zosyn ID RECOMMENDATIONS/PLAN: 1. Continue current ABX over the 3-day weekend, she seems to be improving -- still w/low grade temps and leukocytosis 2. Await clinical improvement before discharging the patient home once cleared by general surgery. * When cleared by surgery/primary anticipate DC on Augmentin 875mg PO x 5 days to OP follow up w/surgery . Consultation Date/Type/Reason Admit Date/Time August 09, 2018 at 15:12 Initial Consult Date 08/09/18 Requesting Provider: AMANDA MILAN MD Date/Time of Note DATE: 08/21/18 TIME: 16:32 Exam/Review of Systems Exam Vitals Vital Signs Date Temp Pulse Resp B/P (MAP) Pulse Ox O2 O2 Flow FiO2 Time Delivery Rate 08/21/18 98.7 68 16 110/71 98 Room Air 14:00 (84) Intake and Output 08/20/18 08/20/18 08/21/18 1515:00 23:00 07:00 IntakeIntake Total 860 ml 650 ml 1150 ml BalanceBalance 860 ml 650 ml 1150 ml Results Result Diagram: 08/21/18 0537 08/21/18 0537 Results 24hrs Laboratory Tests Test 08/21/18 05:37 White Blood Count 9.9 Red Blood Count 4.32 Hemoglobin 11.7 L Hematocrit 36.7 L Mean Corpuscular Volume 85.0 Mean Corpuscular Hemoglobin 27.1 L Mean Corpuscular Hemoglobin Concent 31.9 L Red Cell Distribution Width 13.1 Platelet Count 399 Mean Platelet Volume 9.8 Immature Granulocytes % 0.400 Neutrophils % 63.7 Lymphocytes % 27.8 Monocytes % 5.1 Eosinophils % 2.5 Basophils % 0.5 Nucleated Red Blood Cells % 0.0 Immature Granulocytes # 0.040 H Neutrophils # 6.3 Lymphocytes # 2.8 Monocytes # 0.5 Eosinophils # 0.3 Basophils # 0.1 Nucleated Red Blood Cells # 0.0 Sodium Level 140 Potassium Level 4.3 Chloride Level 105 Carbon Dioxide Level 27 Anion Gap 8 Blood Urea Nitrogen 11 Creatinine 0.90 Est Glomerular Filtrat Rate mL/min > 60 Glucose Level 96 Calcium Level 9.2 Phosphorus Level 4.5 Magnesium Level 2.4 Total Bilirubin 0.4 Direct Bilirubin 0.00 Indirect Bilirubin 0.4 Aspartate Amino Transf (AST/SGOT) 38 Alanine Aminotransferase (ALT/SGPT) 72 H Alkaline Phosphatase 135 H Total Protein 7.2 Albumin 3.7 Globulin 3.50 H Albumin/Globulin Ratio 1.05 Medications Medication Current Medications IV Flush (NS 3 ml) 3 ml PER PROTOCOL IV ; Start 08/09/18 at 16:00 Acetaminophen (Tylenol Tab) 650 mg Q6H PRN PO .PAIN 1-3 OR TEMP Last administered on 08/17/18 05:55; Admin Dose 650 MG; Start 08/09/18 at 16:00 Ondansetron HCl (Zofran Inj) 4 mg Q4H PRN IV NAUSEA/VOMITING Last administered on 08/14/18 06:59; Admin Dose 4 MG; Start 08/13/18 at 02:00 Polyethylene Glycol (Miralax) 17 gm DAILY PRN PO CONSTIPATION Last administered on 08/14/18 07:00; Admin Dose 17 GM; Start 08/13/18 at 11:00 Docusate Sodium (Colace) 100 mg BID PRN PO CONSTIPATION; Start 08/13/18 at 11:00 Pantoprazole (Protonix Tab) 40 mg BID@06,18 PO Last administered on 08/21/18 06:51; Admin Dose 40 MG; Start 08/14/18 at 18:00 Piperacillin Sod/ Tazobactam Sod 100 ml @ 200 mls/hr Q6 IVPB Last administered on 08/21/18 12:16; Admin Dose 200 MLS/HR; Start 08/15/18 at 18:00 Acetaminophen/ Hydrocodone Bitart ([place] (5/325)) 1 tab Q4H PRN PO MODERATE PAIN LEVEL 4-6 Last administered on 08/21/18 12:26; Admin Dose 1 TAB; Start 08/17/18 at 13:30 Multivitamins/ Minerals (Theragran-M) 1 tab DAILY PO Last administered on 08/21/18 09:28; Admin Dose 1 TAB; Start 08/20/18 at 09:00 Vancomycin HCl 1.25 gm/Sodium Chloride 250 ml @ 83.333 mls/ hr Q12H IVPB Last administered on 08/21/18 14:27; Admin Dose 83.333 MLS/HR; Start 08/21/18 at 02:00; Stop 08/22/18 at 03:59 JAMIE MEJIA NP August 21, 2018 16:34
[2018-08-21 20:14] VITALS: BP 119/70; PULSE 69; RESP 20
[2018-08-22] MEDS: PIPER-TAZO 3.375 GM IV (PMX) 100 ML IVPB SCH ×4 (00:10→18:00)
[2018-08-22 02:31] VITALS: BP 102/63; PULSE 57; RESP 18
[2018-08-22] MEDS: VANCOMYCIN HCL 1.25 GM in SOD CHLORIDE 0.9% 250 ML IVPB SCH (02:40)
[2018-08-22] MEDS: PANTOPRAZOLE (EC) 40 MG TAB PO SCH ×2 (05:54→18:00)
[2018-08-22 07:20] VITALS: BP 103/63; PULSE 63; RESP 18
[2018-08-22] MEDS: MULTIVITAMINS/MINERALS TAB PO SCH (09:29)
--- NOTE | 2018-08-22 11:05 | PN ---
Date/Time of Note Date/Time of Note DATE: 08/22/18 TIME: 10:57 Assessment/Plan Lines/Catheters IV C[facility]ter Type (from [facility]): Saline Lock [place] in Place (from [facility]): No Assessment/Plan Chief Complaint/Hosp Course 1. Abdominal pain 2. Transaminitis w hyperbilirubinemia (improved today) 3. Dilated common bile duct with ? choledocholithiasis (despite negative mrcp) 4. Steatosis w +Hep AB; Cholelithiasis; Possible cholecystitis. Positive HIDA. However she was on pain medications -May be discharged per medical team with antibiotics per ID; follow-up in office in 2 weeks. Patient to call for follow-up appointment -IS -ambulate -ice pack to abdominal wall -advance diet as tolerated -Encourage weight optimization -continue abx -Path: A-Gallbladder, cholecystectomy: -- Extensive hyalinizing fibrosis of the gallbladder wall with dystrophic calcification. -- Cholelithiasis (gross only). -- No evidence of malignancy. B-Liver, wedge biopsy: -- Mild macrovesicular steatosis. 5. BMI 33 -Nutrition and exercise optimization 6. Leukocytosis: Unknown etiology; notably WBC was within normal range at beginning of hospitalization much improved -as above -Per ID Thank you. Patient seen and examined in collaboration with Dr. Ryan Clark. Subjective 24 Hr Interval Summary Feels well. No fevers, chills, sob, congested cough, cp, palpitations, sanchez, dizziness, n/v/d/dysuria. Exam/Review of Systems Vital Signs Vitals Vital Signs Date Temp Pulse Resp B/P (MAP) Pulse Ox O2 O2 Flow FiO2 Time Delivery Rate 08/22/18 98.6 63 18 103/63 95 Room Air 07:20 (76) Intake and Output 08/21/18 08/21/18 08/22/18 1515:00 23:00 07:00 IntakeIntake Total 600 ml 650 ml 100 ml BalanceBalance 600 ml 650 ml 100 ml Results Result Diagram: 08/22/1851808/22/18518 MAAME BARCENAS NP August 22, 2018 11:05
[2018-08-22] MEDS ORDERED: AMOX1TAB10 PO (11:14)
--- NOTE | 2018-08-22 11:21 | PDOCDIS ---
Discharge Instructions CONDITION [id number] Patient Condition: [id number] Stable HOME CARE INSTRUCTIONS: [id number] Diet Instructions: [id number] Low Fat /Cholesterol FOLLOW UP/APPOINTMENTS Follow-up Plan Ryan Clark MD Specialty: General Surgery Office Address [id number] [place] [address] [address] [place] [address] Office OTHER ORDERS: Other Orders: 1. Regular, preferably low cholesterol diet as tolerated. 2. Keep incisions clean and dry. May shower. Avoid tub baths and swimming for 2 weeks. Use mild soap and pat dry the incisions. 3. Take medications as needed for pain. 4. Call the surgeon or go to the nearest ER if you have severe abdominal pain despite pain medications. 5. Call the surgeon or go to the nearest ER if you notice any bleeding or secretions coming out of the incision sites. Also call the surgeon if you notice any blood in stool, if you have persistent fevers, or any other unusual signs or symptoms. 6. Follow-up with the surgeon (Dr. Clark) in 7 days for incision check. 7. Avoid heavy lifting [more than 10-15 pounds] for 4 weeks. DES SIU NP August 22, 2018 11:21
--- NOTE | 2018-08-22 11:34 | DS ---
Date/Time of Note Date/Time of Note DATE: 08/22/18 TIME: 11:31 Discharge Summary Admission/Discharge Info Admit Date/Time August 09, 2018 at 15:12 Discharge Date/Time Discharge Diagnosis 1. Acute cholecystitis. Status post laparoscopic cholecystectomy on 08/16/2018. 2. Fatty liver. 3. Obesity. BMI more than 33. Patient Condition: Stable Consults 1. Ryan Clark MD, General Surgery. 2. Rudy Sheth MD, Infectious Diseases. 3. Marii Gómez MD, Gastroenterology. Procedures Operative Report Free Text/Dictation Preoperative Diagnosis: Cholelithiasis Possible cholecystitis with positive HIDA however she is on pain medications Transaminitis and hyperbilirubinemia improved BMI 33 Postoperative Diagnosis: Cholelithiasis Possible cholecystitis. Positive HIDA. However she was on pain medications Transaminitis and hyperbilirubinemia improved Normal liver color BMI 33 Operation(s) Performed: 1. 3 port laparoscopic cholecystectomy 2. Laparoscopic liver wedge resection biopsy 3. Laparoscopic intraoperative cholangiogram 4. Local anesthetic [place], [id number] MRCP 08/18/2018 IMPRESSION: 1. No intrahepatic biliary ductal dilation. CBD is intact with normal caliber. 2. Status post cholecystectomy with postsurgical changes. There is no walled off fluid collection in the gallbladder fossa. 3. Persistent hepatomegaly. 4. Trace left pleural effusion. [place] [id number] Radiology Main Line: [phone] DIAGNOSTIC IMAGING REPORT Patient: DUANE PORTILLO : 1975 Age: 42 Sex: F [id number] DOS: 08/15/18 0000 Ordering MD: BILL APONTE NP Location: [facility] Room/Bed: Banner AMENDMENT: 08/16/2018 9:06:59 AM Parul Reese Md Delayed images of the abdomen obtained at 4 hours post injection demonstrate a persistent nonvisualization of the gallbladder. Small area of persistent activity is seen in the common bile duct. A partial common bile duct obstruction cannot be entirely ruled out. PROCEDURE: HIDA scan CLINICAL INDICATION: 42 -year-old patient with abdominal pain. TECHNIQUE: Following the intravenous injection of 8 point to mCi of Tc-99m Mebrofenin, multiple anterior dynamic images of the abdomen along with numerous planar spot images of the abdomen were obtained up to 75 minutes post injection. COMPARISON: No prior HIDA scans. FINDINGS: The liver is promptly visualized, demonstrates homogeneous distribution of radionuclide. There is a visualization of the common bile duct with persistent uptake up to 75 minutes post injection and a visualization of the gastrointestinal activity wit hin normal time. The gallbladder is not visualized up to 75 minutes post injection IMPRESSION: 1. Nonvisualization of the gallbladder up to 75 minutes post injection. 2. Persistent common bile duct uptake up to 75 minutes post injection and a visualization of the gastrointestinal activity within normal time possibly represent physiologic activity. Hx of Present Illness This is a 42-year-old female with no significant past medical history who presented to the emergency department with complaint of right upper quadrant pain that has been going on for 3 days. In the emergency room, the patient was noticed to have some transaminitis. The patient underwent a gallbladder ultrasound that was showing a common bile duct dilatation measuring up to 10 mm and diameter with a 1.4 cm hypoechoic lesion within the right hepatic lobe. The patient subsequently underwent an MRCP that was showing hepatomegaly and cholelithiasis. Gastroenterology and general surgery consult was obtained. The patient was taken to the OR on 08/16/2018 and the patient underwent a 3-port laparoscopic cholecystectomy. Hospital Course Status post surgery, the patient was started on a clear liquid diet and the patient's diet was advanced as tolerated to a regular consistency diet without any significant gastrointestinal symptoms. The patient was maintained on antimicrobial therapy since the patient continued to have leukocytosis. Infectious disease consult was obtained for expert opinion. The patient was maintained on IV antimicrobials as per ID. Patient's hightower cultures remained negative. The patient was maintained on IV antimicrobials until the patient's leukocytosis was resolved and she was cleared by consultants to be discharged home. The patient also was noted to have dilated common bile duct on the initial imaging. However the patient's MRCP was negative for any choledocholithiasis. The patient's cholangiogram was also negative for any obstructions. The patient is obese with a BMI of more than 33 kg/m. The patient was advised on weight reduction. The patient was also noticed to have a fatty liver on abdominal imaging. The patient's fasting lipid panel was optimal. The patient had a stable hospital course. The patient is stable to be discharged home on oral antibiotics, to be followed up with outpatient surgery. Discharge Instructions 1. Regular, preferably low cholesterol diet as tolerated. 2. Keep incisions clean and dry. May shower. Avoid tub baths and swimming for 2 weeks. Use mild soap and pat dry the incisions. 3. Take medications as needed for pain. 4. Call the surgeon or go to the nearest ER if you have severe abdominal pain despite pain medications. 5. Call the surgeon or go to the nearest ER if you notice any bleeding or secretions coming out of the incision sites. Also call the surgeon if you notice any blood in stool, if you have persistent fevers, or any other unusual signs or symptoms. 6. Follow-up with the surgeon (Dr. Clark) in 7 days for incision check. 7. Avoid heavy lifting [more than 10-15 pounds] for 4 weeks. The patient verbalized understanding of her discharge instructions. At this time I would like to thank all the consultants for seeing the patient, doing the necessary procedures, and providing clinical recommendations. The patient was seen in collaboration with Dr. Lopes. Home Meds Active Scripts Amoxicillin/Potassium Clav (Amox-Clav 875-125 mg Tablet) 875-125 mg Tab, 1 TAB PO BID for 5 Days, #10 TAB Prov:DES SIU NP 08/22/18 Follow-up Plan Ryan Clark MD Specialty: General Surgery Office Address [address] [place] [address] [place] [id number] Office Primary Care Provider Care Physician No Primary Time spent on discharge: > 30 minutes Pending Labs Laboratory Tests Test 08/22/18 05:19 White Blood Count 11.7 10^3/ul (4.8-10.8) Red Blood Count 4.35 10^6/ul (4.20-5.40) Hemoglobin 11.8 g/dl (12.0-16.0) Hematocrit 36.9 % (37.0-47.0) Mean Corpuscular Volume 84.8 fl (82.0-101.0) Mean Corpuscular Hemoglobin 27.1 pg (29.0-33.0) Mean Corpuscular Hemoglobin Concent 32.0 g/dl (32.0-37.0) Red Cell Distribution Width 13.2 % (11.5-14.5) Platelet Count 428 10^3/UL (140-415) Mean Platelet Volume 10.0 fl (7.4-10.4) Immature Granulocytes % 0.700 % (0.001-0.429) Neutrophils % 63.8 % (39.0-77.0) Lymphocytes % 25.9 % (15.0-51.0) Monocytes % 5.8 % (0.0-11.0) Eosinophils % 3.3 % (0.0-7.0) Basophils % 0.5 % (0.0-2.0) Nucleated Red Blood Cells % 0.0 /100WBC (0.0-0.0) Immature Granulocytes # 0.080 10^3/ul (0.0-0.031) Neutrophils # 7.4 10^3/ul (1.6-7.5) Lymphocytes # 3.0 10^3/ul (0.8-2.9) Monocytes # 0.7 10^3/ul (0.3-0.9) Eosinophils # 0.4 10^3/ul (0.0-0.5) Basophils # 0.1 10^3/ul (0.0-0.1) Nucleated Red Blood Cells # 0.0 10^3/ul (0.0-0.0) Sodium Level 138 mmol/L (135-144) Potassium Level 4.3 mmol/L (3.5-5.1) Chloride Level 105 mmol/L (97-110) Carbon Dioxide Level 25 mmol/L (21-31) Anion Gap 8 (5-13) Blood Urea Nitrogen 13 mg/dl (7-20) Creatinine 0.95 mg/dl (0.44-1.00) Est Glomerular Filtrat Rate mL/min > 60 mL/min (>60) Glucose Level 89 mg/dl (70-220) Calcium Level 9.1 mg/dl (8.4-10.2) Phosphorus Level 4.4 mg/dl (2.5-4.9) Magnesium Level 2.4 mg/dl (1.7-2.5) Total Bilirubin 0.4 mg/dl (0.2-1.3) Direct Bilirubin 0.00 mg/dl (0.00-0.20) Indirect Bilirubin 0.4 mg/dl (0-1.1) Aspartate Amino Transf (AST/SGOT) 34 IU/L (15-46) Alanine Aminotransferase (ALT/SGPT) 59 IU/L (13-69) Alkaline Phosphatase 128 IU/L (42-121) Total Protein 7.1 g/dl (6.1-8.1) Albumin 3.9 g/dl (3.3-4.9) Globulin 3.20 g/dl (1.3-3.2) Albumin/Globulin Ratio 1.21 DES SIU NP August 22, 2018 11:34
[2018-08-22 14:13] VITALS: BP 93/60; PULSE 68; RESP 16
--- NOTE | 2018-08-22 14:17 | CONS ---
Assessment/Plan Assessment/Plan Hospital Course (Demo Recall) Alert feels good denies pain no nausea vomiting diarrhea, T-max 99.6. WBC 11.7 platelets 428 no shift no bands BUN 13 creatinine 0.95 Microbiology: Blood cultures negative Antimicrobials: Vancomycin, Zosyn day #8 Physical examination: Well-developed obese middle-aged woman who is alert in no distress. Head atraumatic normocephalic sclera nonicteric vehicle mucosa pink neck is supple chest rise symmetrical breath sounds clear, heart S1-S2 abdomen soft bowel sounds present extremities without cyanosis Assessment: 1. Systemic inflammatory response syndrome secondary to #2 2. Symptomatic cholelithiasis/cholecystitis, status post lap thang 08/16/18 3. Dilated common bile duct with questionable choledocholithiasis. MRCP negative Plan: Patient remains stable, cleared for discharge by surgical team, anticipate discharge on oral Augmentin to complete the course for 5 more days Consultation Date/Type/Reason Admit Date/Time August 09, 2018 at 15:12 Initial Consult Date 08/09/18 Type of Consult id Requesting Provider: AMANDA MILAN MD Date/Time of Note DATE: 08/22/18 TIME: 14:17 Exam/Review of Systems Exam Vitals Vital Signs Date Temp Pulse Resp B/P (MAP) Pulse Ox O2 O2 Flow FiO2 Time Delivery Rate 08/22/18 99.6 68 16 93/60 (71) 99 Room Air 14:13 Intake and Output 08/21/18 08/21/18 08/22/18 1515:00 23:00 07:00 IntakeIntake Total 600 ml 650 ml 100 ml BalanceBalance 600 ml 650 ml 100 ml Results Result Diagram: 08/22/1851808/22/1819 Results 24hrs Laboratory Tests Test 08/22/18 05:19 White Blood Count 11.7 H Red Blood Count 4.35 Hemoglobin 11.8 L Hematocrit 36.9 L Mean Corpuscular Volume 84.8 Mean Corpuscular Hemoglobin 27.1 L Mean Corpuscular Hemoglobin Concent 32.0 Red Cell Distribution Width 13.2 Platelet Count 428 H Mean Platelet Volume 10.0 Immature Granulocytes % 0.700 H Neutrophils % 63.8 Lymphocytes % 25.9 Monocytes % 5.8 Eosinophils % 3.3 Basophils % 0.5 Nucleated Red Blood Cells % 0.0 Immature Granulocytes # 0.080 H Neutrophils # 7.4 Lymphocytes # 3.0 H Monocytes # 0.7 Eosinophils # 0.4 Basophils # 0.1 Nucleated Red Blood Cells # 0.0 Sodium Level 138 Potassium Level 4.3 Chloride Level 105 Carbon Dioxide Level 25 Anion Gap 8 Blood Urea Nitrogen 13 Creatinine 0.95 Est Glomerular Filtrat Rate mL/min > 60 Glucose Level 89 Calcium Level 9.1 Phosphorus Level 4.4 Magnesium Level 2.4 Total Bilirubin 0.4 Direct Bilirubin 0.00 Indirect Bilirubin 0.4 Aspartate Amino Transf (AST/SGOT) 34 Alanine Aminotransferase (ALT/SGPT) 59 Alkaline Phosphatase 128 H Total Protein 7.1 Albumin 3.9 Globulin 3.20 Albumin/Globulin Ratio 1.21 Medications Medication Current Medications IV Flush (NS 3 ml) 3 ml PER PROTOCOL IV ; Start 08/09/18 at 16:00 Acetaminophen (Tylenol Tab) 650 mg Q6H PRN PO .PAIN 1-3 OR TEMP Last administered on 08/17/18 05:55; Admin Dose 650 MG; Start 08/09/18 at 16:00 Ondansetron HCl (Zofran Inj) 4 mg Q4H PRN IV NAUSEA/VOMITING Last administered on 08/14/18 06:59; Admin Dose 4 MG; Start 08/13/18 at 02:00 Polyethylene Glycol (Miralax) 17 gm DAILY PRN PO CONSTIPATION Last administered on 08/14/18 07:00; Admin Dose 17 GM; Start 08/13/18 at 11:00 Docusate Sodium (Colace) 100 mg BID PRN PO CONSTIPATION; Start 08/13/18 at 11:00 Pantoprazole (Protonix Tab) 40 mg BID@06,18 PO Last administered on 08/22/18 05:54; Admin Dose 40 MG; Start 08/14/18 at 18:00 Piperacillin Sod/ Tazobactam Sod 100 ml @ 200 mls/hr Q6 IVPB Last administered on 08/22/18at 12:38; Admin Dose 200 MLS/HR; Start 08/15/18 at 18:00 Acetaminophen/ Hydrocodone Bitart ([place] (5/325)) 1 tab Q4H PRN PO MODERATE PAIN LEVEL 4-6 Last administered on 08/21/18at 20:54; Admin Dose 1 TAB; Start 08/17/18 at 13:30 Multivitamins/ Minerals (Theragran-M) 1 tab DAILY PO Last administered on 08/22/18at 09:29; Admin Dose 1 TAB; Start 08/20/18 at 09:00 JERRELL BARNETT NP August 22, 2018 14:17
== END 2018-08-22 18:43 | disposition home or self-care (01) | DRG 419 ==
LOC: FTE 10:40 → PP2 15:12
PROVIDERS: ADMIT Internal Medicine; ATTEND Internal Medicine
PROC: 0FB04ZX Excision of Liver, Percutaneous Endoscopic Approach, Diagnostic (ICD-10-PCS; 2018-08-16)
PROC: BF10YZZ Fluoroscopy of Bile Ducts using Other Contrast (ICD-10-PCS; 2018-08-16)
PROC: 0FT44ZZ Resection of Gallbladder, Percutaneous Endoscopic Approach (ICD-10-PCS; principal; 2018-08-16 22:00)
DX: K80.00 Calculus of gallbladder with acute cholecystitis without obstruction (principal); K76.0 Fatty (change of) liver, not elsewhere classified; D18.09 Hemangioma of other sites; Z68.33 Body mass index [BMI] 33.0-33.9, adult; E66.9 Obesity, unspecified; E80.6 Other disorders of bilirubin metabolism
CPT/HCPCS: 36415; 71045; 74178; 74181; 74300; 76705; 78226; 80048; 80053; 80061; 80076; 80202; 81001; 81003; 81025; 82105; 83690; 83735; 84100; 85025; 85610; 85730; 86038; 86255; 86704; 86708; 86709; 86803; 87340; 88304; 88307; 88313; 96374; 96375; A9537; J0690; J1100; J1170; J1885; J2250; J2405; J2543; J2765; J2795; J3010; J3370; J3480; J7042; J7050; Q9967

== ENCOUNTER → 2018-09-14 | Outpatient (CLI) | payer MEDICAID ==
[~2018-09-14] MED LIST: AMOX1TAB10 PO
== END | disposition home or self-care (01) ==
LOC: U/S 09:08
PROVIDERS: ATTEND Surgery
DX: R10.9 Unspecified abdominal pain (principal); R11.2 Nausea with vomiting, unspecified; D18.09 Hemangioma of other sites; Z90.49 Acquired absence of other specified parts of digestive tract
CPT/HCPCS: 76700; 80053; 82150; 83690; 85025

== ENCOUNTER → 2018-09-21 | Outpatient (CLI) | payer MEDICAID | END | disposition home or self-care (01) | LOC: LAB 08:45 | PROVIDERS: ATTEND Surgery | DX: R10.9 Unspecified abdominal pain (principal) | CPT/HCPCS: 80053; 82150; 83690; 85025 ==